=== PATIENT | male | born 1960 | race Hispanic/Latino ===

== ENCOUNTER 2018-06-23 08:21 | Emergency (ER) | payer SELFPAY ==
--- NOTE | 2018-06-23 08:36 | EDPHYS ---
Physician Documentation [facility] Name: Freddy Nichols Age: 57 yrs Sex: Male : 1960 Arrival Date: 06/23/2018 Time: 08:24 Bed 6 Private MD: None, None ED Physician Del Butler HPI: 06/23 08:39 This 57 yrs old Male presents to ER via Unassigned with complaints of snw Headache, High Blood Pressure. 08:39 The patient complains of pain to the forehead. The patient describes the headache as a snw pressure. Onset: The symptoms/episode began/occurred intermittent. Associated signs and symptoms: Pertinent positives: noted high blood pressure on home machine. Severity of symptoms: At its worst the pain was moderate. Headache History: Denies prior headaches. the symptoms are aggravated by high blood pressure. The patient has experienced similar episodes in the past. The patient has not recently seen a physician, and does not have an established primary care provider, supposed to take HTN medications but has not been able to afford. Historical: - Allergies: 08:39 No Known Allergies; iw - Home Meds: 08:39 None [Active]; iw - PMHx: 08:39 None; iw - PSHx: 08:39 None; iw - Immunization history:: Adult Immunizations not up to date. - Social history:: Smoking status: Patient uses tobacco products, one cigarette per day . - Ebola Screening: : Patient negative for fever greater than or equal to 101.5 degrees Fahrenheit, and additional compatible Ebola Virus Disease symptoms Patient denies exposure to infectious person Patient denies travel to an Ebola-affected area in the 21 days before illness onset No symptoms or risks identified at this time. ROS: 08:37 Constitutional: Negative for fever, chills, and weight loss, Eyes: Negative for injury, snw pain, redness, and discharge, ENT: Negative for injury, pain, and discharge, Neck: Negative for injury, pain, and swelling, Cardiovascular: Negative for chest pain, palpitations, and edema, Respiratory: Negative for shortness of breath, cough, wheezing, and pleuritic chest pain, Abdomen/GI: Negative for abdominal pain, nausea, vomiting, diarrhea, and constipation, Back: Negative for injury and pain, : Negative for injury, bleeding, discharge, and swelling, MS/Extremity: Negative for injury and deformity, Skin: Negative for injury, rash, and discoloration. 08:37 Neuro: Positive for headache, lightheadedness intermittently. Exam: 08:37 Constitutional: This is a well developed, well nourished patient who is awake, alert, snw and in no acute distress. Head/Face: Normocephalic, atraumatic. Eyes: Pupils equal round and reactive to light, extra-ocular motions intact. Lids and lashes normal. Conjunctiva and sclera are non-icteric and not injected. Cornea within normal limits. Periorbital areas with no swelling, redness, or edema. ENT: Nares patent. No nasal discharge, no septal abnormalities noted. Tympanic membranes are normal and external auditory canals are clear. Oropharynx with no redness, swelling, or masses, exudates, or evidence of obstruction, uvula midline. Mucous membranes moist. Neck: Trachea midline, no thyromegaly or masses palpated, and no cervical lymphadenopathy. Supple, full range of motion without nuchal rigidity, or vertebral point tenderness. No Meningismus. Chest/axilla: Normal chest wall appearance and motion. Nontender with no deformity. No lesions are appreciated. Cardiovascular: Regular rate and rhythm with a normal S1 and S2. No gallops, murmurs, or rubs. Normal PMI, no JVD. No pulse deficits. Respiratory: Lungs have equal breath sounds bilaterally, clear to auscultation and percussion. No rales, rhonchi or wheezes noted. No increased work of breathing, no retractions or nasal flaring. Abdomen/GI: Soft, non-tender, with normal bowel sounds. No distension or tympany. No guarding or rebound. No evidence of tenderness throughout. Back: No spinal tenderness. No costovertebral tenderness. Full range of motion. Skin: Warm, dry with normal turgor. Normal color with no rashes, no lesions, and no evidence of cellulitis. MS/ Extremity: Pulses equal, no cyanosis. Neurovascular intact. Full, normal range of motion. Neuro: Awake and alert, GCS 15, oriented to person, place, time, and situation. Cranial nerves II-XII grossly intact. Motor strength 5/5 in all extremities. Sensory grossly intact. Cerebellar exam normal. Normal gait. Psych: Awake, alert, with orientation to person, place and time. Behavior, mood, and affect are within normal limits. Vital Signs: 08:39 BP 163 / 105; Pulse 65; Resp 16 S; Temp 97.2(O); Pulse Ox 100% ; Weight 99.79 kg; iw Height 5 ft. 9 in. (175.26 cm); Pain 2/10; 08:39 Body Mass Index 32.49 (99.79 kg, 175.26 cm) iw Estefany Coma Score: 08:38 Eye Response: spontaneous(4). Verbal Response: oriented(5). Motor Response: obeys snw commands(6). Total: 15. MDM: 08:31 Patient medically screened. snw 08:38 Data reviewed: vital signs, nurses notes. Data interpreted: Pulse oximetry: on room air snw is 99 %. Interpretation: normal. Counseling: I had a detailed discussion with the patient and/or guardian regarding: the historical points, exam findings, and any diagnostic results supporting the discharge/admit diagnosis, the presence of at least one elevated blood pressure reading (>120/80) during this emergency department visit, the need for outpatient follow up, to return to the emergency department if symptoms worsen or persist or if there are any questions or concerns that arise at home. Special discussion: I have referred the patient to see his PCP for further evaluation of high blood pressure. Based on the history and exam findings, there is no indication for further emergent testing or inpatient evaluation. I discussed with the patient/guardian the need to see the primary care provider for further evaluation of the symptoms. Administered Medications: 08:38 Drug: cloNIDine 0.1 mg Route: PO; jl7 08:40 Follow up: Response: Medication administered at discharge. hb 08:42 Follow up: Response: Medication administered at discharge. jl7 Disposition: 10:46 Co-signature as Attending Physician, Del Butler MD I agree with the assessment and kdr plan of care. Disposition: 06/23/18 08:35 Discharged to Home. Impression: Essential (primary) hypertension. - Condition is Stable. - Discharge Instructions: Hypertension, Heart Disease Prevention, How to Take Your Blood Pressure, Fuuw-is-Dkgn, DASH Eating Plan, Rehydration, Adult, Managing Your Hypertension. - Prescriptions for Clonidine 0.1 mg Oral Tablet - take 1 tablet by ORAL route every 12 hours; 30 tablet. - Medication Reconciliation Form, Thank You Letter, Antibiotic Education, Prescription Opioid Use form. - Follow up: Private Physician; When: 2 - 3 days; Reason: Recheck today's complaints, Continuance of care, Re-evaluation by your physician. Follow up: Emergency Department; When: As needed; Reason: Worsening of condition. Signatures: Del Butler MD MD [facility] Rosa Olivo, PIT FURNACE MELTER-C PIT FURNACE MELTER-Csnw Martine Starks RN RN iw Maci Sultana RN RN jl7 Kayla Noe RN Corrections: (The following items were deleted from the chart) 08:42 08:35 06/23/2018 08:35 Discharged to Home. Impression: Essential (primary) jl7 hypertension. Condition is Stable. Forms are Medication Reconciliation Form, Thank You Letter, Antibiotic Education, Prescription Opioid Use. Follow up: Private Physician; When: 2 - 3 days; Reason: Recheck today's complaints, Continuance of care, Re-evaluation by your physician. Follow up: Emergency Department; When: As needed; Reason: Worsening of condition. snw
--- NOTE | 2018-06-23 08:43 | ER ---
Nurse's Notes [facility] Name: Freddy Nichols Age: 57 yrs Sex: Male : 1960 Arrival Date: 06/23/2018 Time: 08:24 Bed 6 Private MD: None, None Diagnosis: Essential (primary) hypertension Presentation: 06/23 08:38 Presenting complaint: Patient states: has had high BP readings at home, has not had BP iw medication due to financial situation, also has headache and feels dizzy at times. Transition of care: patient was not received from another setting of care. Onset of symptoms was 2017. Risk Assessment: Do you want to hurt yourself or someone else? Patient reports no desire to harm self or others. Initial Sepsis Screen: Does the patient meet any 2 criteria? No. Patient's initial sepsis screen is negative. Does the patient have a suspected source of infection? No. Patient's initial sepsis screen is negative. Care prior to arrival: None. 08:38 Method Of Arrival: Ambulatory iw 08:38 Acuity: CHASE 4 iw Historical: - Allergies: 08:39 No Known Allergies; iw - Home Meds: 08:39 None [Active]; iw - PMHx: 08:39 None; iw - PSHx: 08:39 None; iw - Immunization history:: Adult Immunizations not up to date. - Social history:: Smoking status: Patient uses tobacco products, one cigarette per day . - Ebola Screening: : Patient negative for fever greater than or equal to 101.5 degrees Fahrenheit, and additional compatible Ebola Virus Disease symptoms Patient denies exposure to infectious person Patient denies travel to an Ebola-affected area in the 21 days before illness onset No symptoms or risks identified at this time. Screenin:39 Abuse screen: Denies threats or abuse. Denies injuries from another. Nutritional jl7 screening: No deficits noted. Tuberculosis screening: No symptoms or risk factors identified. Fall Risk None identified. Assessment: 08:39 General: Appears in no apparent distress. uncomfortable, Behavior is calm, cooperative, jl7 appropriate for age. Pain: Denies pain. Neuro: Level of Consciousness is awake, alert, obeys commands, Oriented to person, place, time, situation. Cardiovascular: Heart tones S1 S2 present Patient's skin is warm and dry. Respiratory: Airway is patent Respiratory effort is even, unlabored, Respiratory pattern is regular, symmetrical. GI: No signs and/or symptoms were reported involving the gastrointestinal system. : No signs and/or symptoms were reported regarding the genitourinary system. EENT: No signs and/or symptoms were reported regarding the EENT system. Derm: Skin is pink, warm \T\ dry. Musculoskeletal: No signs and/or symptoms reported regarding the musculoskeletal system. Vital Signs: 08:39 BP 163 / 105; Pulse 65; Resp 16 S; Temp 97.2(O); Pulse Ox 100% ; Weight 99.79 kg; iw Height 5 ft. 9 in. (175.26 cm); Pain 2/10; 08:39 Body Mass Index 32.49 (99.79 kg, 175.26 cm) iw Elwood Coma Score: 08:38 Eye Response: spontaneous(4). Verbal Response: oriented(5). Motor Response: obeys snw commands(6). Total: 15. ED Course: 08:24 Patient arrived in ED. mr 08:24 None, None is Private Physician. mr 08:30 Rosa Olivo FNP-C [facility]. snw 08:31 Del Butler MD is Attending Physician. snw 08:39 Triage completed. iw 08:39 Maci Sultana, RN is Primary Nurse. jl7 08:39 Arm band placed on. iw 08:39 Patient has correct armband on for positive identification. Bed in low position. Call jl7 light in reach. Side rails up X 1. 08:39 No provider procedures requiring assistance completed. Patient did not have IV access jl7 during this emergency room visit. Administered Medications: 08:38 Drug: cloNIDine 0.1 mg Route: PO; jl7 08:40 Follow up: Response: Medication administered at discharge. hb 08:42 Follow up: Response: Medication administered at discharge. jl7 Outcome: 08:35 Discharge ordered by . snw 08:39 Discharged to home ambulatory, with family. jl7 08:39 Condition: stable 08:39 Discharge instructions given to patient, family, Instructed on discharge instructions, follow up and referral plans. medication usage, Demonstrated understanding of instructions, follow-up care, medications, Prescriptions given X 1. 08:42 Patient left the ED. jl7 Signatures: Rosa Olivo FNP-C MOLDING SUPERVISOR-Csnw DuqueMuriel Irene, RN RN Kayla Jamil, RN RN Maci Dean, RN RN jl7
[2018-06-23] MEDS ORDERED: cloNIDine HCl 0.1 MG TAB ONE (08:44)
== END 2018-06-23 08:42 | disposition home or self-care (01) ==
LOC: ER 08:21
DX: I10 Essential (primary) hypertension (principal); F17.210 Nicotine dependence, cigarettes, uncomplicated
CPT/HCPCS: 99283

== ENCOUNTER 2019-05-09 12:27 | Emergency (ER) | payer SELFPAY ==
--- NOTE | 2019-05-09 13:59 | EKG ---
Test Date: 2019-05-09 Test Time: 13:02:04 Supervisor Word Processing: ANA MEASUREMENT RESULTS: Intervals: Rate: 80 MA: 162 QRSD: 96 QT: 382 QTc: 440 [place]: P: 31 MA: 162 QRS: 14 T: 2 INTERPRETIVE STATEMENTS: Normal sinus rhythm Normal ECG Compared to ECG 01/14/2000 18:11:00 No significant changes Electronically Signed On 05-09-19 13:58:50 CDT by Dirk Holcomb
[2019-05-09 14:04] LABS: Absolute Lymphocytes (CBC) 1.1 K/uL (0.7-4.9); Basophils % 0.6 % (0-1.3); Hematocrit 44.1 % (39.6-49.0); Lymphocytes % 14.4 % (15.3-44.8); MPV 11.2 fL (7.6-11.3); RBC Red Blood Cell Count 5.38 M/uL (4.33-5.43)
[2019-05-09 14:24] LABS: ALT/SGPT 61 U/L (12-78); AST/SGOT 37 U/L (15-37); Albumin 3.6 g/dL (3.4-5.0); Alkaline Phosphatase 114 U/L (45-117); BUN Blood Urea Nitrogen 27 mg/dL (7-18); Bicarbonate 28 mmol/L (21-32); Bilirubin Direct 0.2 mg/dL (0-0.2); Bilirubin Total 0.5 mg/dL (0.2-1.0); Glucose Level 94 mg/dL (74-106); Magnesium 2.1 mg/dL (1.8-2.4); NT PRO-BNP 12 pg/mL (<125); Potassium 3.7 mmol/L (3.5-5.1); Protein, Total 7.2 g/dL (6.4-8.2); Sodium Level 140 mmol/L (136-145); Troponin (Emerg Dept Use Only) < 0.02 ng/mL (0.0-0.045)
--- NOTE | 2019-05-09 14:35 | RAD REPORT ---
EXAM DESCRIPTION: Max Single View05/09/2019 2:17 pm CLINICAL HISTORY: Chest pain COMPARISON: none FINDINGS: The lungs appear clear of acute infiltrate. The heart is normal size IMPRESSION: No acute abnormalities displayed
[2019-05-09 15:06] LABS: Protime INR 1.07
--- NOTE | 2019-05-09 16:11 | ER ---
Nurse's Notes [facility] Name: Freddy Nichols Age: 58 yrs Sex: Male : 1960 Arrival Date: 05/09/2019 Time: 12:29 Bed 15 Private MD: Diagnosis: Chest pain, unspecified;Hypertensive heart disease Presentation: 05/09 12:35 Presenting complaint: Anxiety, left sided chest pain, dizziness, and home BP 208/91. hb Transition of care: patient was not received from another setting of care. Onset of symptoms was May 09, 2019. Risk Assessment: Do you want to hurt yourself or someone else? Patient reports no desire to harm self or others. Care prior to arrival: None. 12:35 Method Of Arrival: Ambulatory hb 12:35 Acuity: CHASE 3 hb 14:05 Initial Sepsis Screen: Does the patient meet any 2 criteria? No. Patient's initial aj1 sepsis screen is negative. Does the patient have a suspected source of infection? No. Patient's initial sepsis screen is negative. Historical: - Allergies: 12:38 No Known Allergies; hb - Home Meds: 12:38 omeprazole 40 mg Oral cpDR 1 cap once daily [Active]; losartan-hydrochlorothiazide hb 50-12.5 mg oral tab 1 tab once daily [Active]; unknown diuretic [Active]; Melatonin Oral [Active]; unknown cholesterol med [Active]; - PMHx: 12:38 Hyperlipidemia; Hypertension; hb - PSHx: 12:38 None; hb - Immunization history:: Adult Immunizations up to date. - Social history:: Smoking status: Patient uses tobacco products, denies chronic smoking, but will smoke occasionally. - Ebola Screening: : No symptoms or risks identified at this time. Screenin:14 Abuse screen: Denies threats or abuse. Denies injuries from another. Nutritional aj1 screening: No deficits noted. Tuberculosis screening: No symptoms or risk factors identified. 14:05 Fall Risk None identified. aj1 Assessment: 13:14 General: Appears in no apparent distress. comfortable, Behavior is calm, cooperative, aj1 appropriate for age, anxious. Pain: Denies pain. Neuro: Level of Consciousness is awake, alert, obeys commands, Oriented to person, place, time, situation. Cardiovascular: Reports lightheadedness, Denies chest pain, Patient's skin is warm and dry. Rhythm is sinus rhythm. Respiratory: Airway is patent Respiratory effort is even, unlabored, Respiratory pattern is regular, symmetrical, Breath sounds are clear bilaterally. GI: No signs and/or symptoms were reported involving the gastrointestinal system. : No signs and/or symptoms were reported regarding the genitourinary system. EENT: No signs and/or symptoms were reported regarding the EENT system. Derm: No signs and/or symptoms reported regarding the dermatologic system. Musculoskeletal: No signs and/or symptoms reported regarding the musculoskeletal system. 14:04 Reassessment: Patient appears in no apparent distress at this time. No changes from aj1 previously documented assessment. Patient and/or family updated on plan of care and expected duration. Pain level reassessed. Patient is alert, oriented x 3, equal unlabored respirations, skin warm/dry/pink. 15:05 Reassessment: Patient appears in no apparent distress at this time. No changes from aj1 previously documented assessment. Patient and/or family updated on plan of care and expected duration. Pain level reassessed. Patient is alert, oriented x 3, equal unlabored respirations, skin warm/dry/pink. 16:29 Reassessment: Patient appears in no apparent distress at this time. No changes from aj1 previously documented assessment. Patient and/or family updated on plan of care and expected duration. Pain level reassessed. Patient is alert, oriented x 3, equal unlabored respirations, skin warm/dry/pink. Vital Signs: 12:36 BP 135 / 95; Pulse 89; Resp 16; Temp 98.1; Pulse Ox 100% on R/A; Weight 113.4 kg; hb Height 5 ft. 8 in. (172.72 cm); Pain 6/10; 14:04 BP 118 / 89; Pulse 80; Resp 18; Pulse Ox 97% on R/A; aj1 15:05 BP 117 / 83; Pulse 80; Resp 18; Pulse Ox 98% ; aj1 16:05 BP 121 / 89; Pulse 79; Resp 18; Pulse Ox 97% on R/A; aj1 12:36 Body Mass Index 38.01 (113.40 kg, 172.72 cm) hb ED Course: 12:29 Patient arrived in ED. as 12:36 Triage completed. hb 12:36 Arm band placed on. hb 12:44 Kiara Puente, RN is Primary Nurse. aj1 13:00 Del Butler MD is Attending Physician. kdr 13:07 EKG done, by consulting technical manager. reviewed by Del Butler MD. at1 13:55 Inserted saline lock: 20 gauge in right antecubital area, using aseptic technique. aj1 Blood collected. 14:05 Patient has correct armband on for positive identification. aj1 14:05 No provider procedures requiring assistance completed. aj1 14:17 XRAY Chest (1 view) In Process Unspecified. EDMS 16:30 IV discontinued, intact, bleeding controlled, No redness/swelling at site. Pressure aj1 dressing applied. Administered Medications: No medications were administered Outcome: 16:11 Discharge ordered by . kdr 16:31 Discharged to home ambulatory. aj1 16:31 Condition: good 16:31 Discharge instructions given to patient, Instructed on discharge instructions, follow up and referral plans. Demonstrated understanding of instructions, follow-up care. 16:31 Patient left the ED. aj1 Signatures: Dispatcher [employer] EDKS Kiara Puente, RN RN aj1 Del Butler MD MD kdr Martinez, Amelia as Emelyn Modi, car lubricator EKG Tat1 Kayla Noe, RN RN hb
--- NOTE | 2019-05-09 16:12 | EDPHYS ---
Physician Documentation [facility] Name: Freddy Nichols Age: 58 yrs Sex: Male : 1960 Arrival Date: 05/09/2019 Time: 12:29 Bed 15 Private MD: ED Physician Del Butler HPI: 05/09 17:14 This 58 yrs old Male presents to ER via Ambulatory with complaints of High kdr Blood Pressure, Dizziness. 17:14 The patient is a very vague historian but c/o left sided chest "itching" chest pain? kdr Hypertension and dizziness. 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 Onset: The symptoms/episode began/occurred at an unknown time. Severity of symptoms: At their worst the symptoms were mild just prior to arrival, in the emergency department the symptoms are unchanged. The patient has experienced similar episodes in the past, a few times, The patient is unclear about how long he has had the above noted s/s. The patient has not recently seen a physician. Historical: - Allergies: 12:38 No Known Allergies; hb - Home Meds: 12:38 omeprazole 40 mg Oral cpDR 1 cap once daily [Active]; losartan-hydrochlorothiazide hb 50-12.5 mg oral tab 1 tab once daily [Active]; unknown diuretic [Active]; Melatonin Oral [Active]; unknown cholesterol med [Active]; - PMHx: 12:38 Hyperlipidemia; Hypertension; hb - PSHx: 12:38 None; hb - Immunization history:: Adult Immunizations up to date. - Social history:: Smoking status: Patient uses tobacco products, denies chronic smoking, but will smoke occasionally. - Ebola Screening: : No symptoms or risks identified at this time. ROS: 17:14 Constitutional: Negative for fever, chills, and weight loss, Eyes: Negative for injury, kdr pain, redness, and discharge, Neck: Negative for injury, pain, and swelling, Abdomen/GI: Negative for abdominal pain, nausea, vomiting, diarrhea, and constipation, Back: Negative for injury and pain, : Negative for injury, bleeding, discharge, and swelling, MS/Extremity: Negative for injury and deformity, Skin: Negative for injury, rash, and discoloration, Neuro: Negative for headache, weakness, numbness, tingling, and seizure activity. Psych: Negative for depression, anxiety, suicide ideation, homicidal ideation, and hallucinations, Allergy/Immunology: Negative for hives, rash, and allergies, Endocrine: Negative for neck swelling, polydipsia, polyuria, polyphagia, and marked weight changes, Hematologic/Lymphatic: Negative for swollen nodes, abnormal bleeding, and unusual bruising. 17:14 Cardiovascular: Positive for chest pain, Negative for edema, orthopnea, palpitations, paroxysmal nocturnal dyspnea. 17:14 Respiratory: Positive for 17:14 Neuro: Positive for dizziness, Negative for altered mental status, gait disturbance, headache, hearing loss, loss of consciousness, numbness, seizure activity, speech changes, syncope, near syncope, tingling, weakness. Exam: 17:14 Constitutional: This is a well developed, well nourished patient who is awake, alert, kdr and in no acute distress. Head/Face: Normocephalic, atraumatic. Eyes: Pupils equal round and reactive to light, extra-ocular motions intact. Lids and lashes normal. Conjunctiva and sclera are non-icteric and not injected. Cornea within normal limits. Periorbital areas with no swelling, redness, or edema. Neck: Trachea midline, no thyromegaly or masses palpated, and no cervical lymphadenopathy. Supple, full range of motion without nuchal rigidity, or vertebral point tenderness. No Meningismus. Chest/axilla: Normal chest wall appearance and motion. Nontender with no deformity. No lesions are appreciated. Cardiovascular: Regular rate and rhythm with a normal S1 and S2. No gallops, murmurs, or rubs. Normal PMI, no JVD. No pulse deficits. Respiratory: Lungs have equal breath sounds bilaterally, clear to auscultation and percussion. No rales, rhonchi or wheezes noted. No increased work of breathing, no retractions or nasal flaring. Abdomen/GI: Soft, non-tender, with normal bowel sounds. No distension or tympany. No guarding or rebound. No evidence of tenderness throughout. Back: No spinal tenderness. No costovertebral tenderness. Full range of motion. Skin: Warm, dry with normal turgor. Normal color with no rashes, no lesions, and no evidence of cellulitis. MS/ Extremity: Pulses equal, no cyanosis. Neurovascular intact. Full, normal range of motion. Neuro: Awake and alert, GCS 15, oriented to person, place, time, and situation. Cranial nerves II-XII grossly intact. Motor strength 5/5 in all extremities. Sensory grossly intact. Cerebellar exam normal. Normal gait. Psych: Awake, alert, with orientation to person, place and time. Behavior, mood, and affect are within normal limits. Vital Signs: 12:36 BP 135 / 95; Pulse 89; Resp 16; Temp 98.1; Pulse Ox 100% on R/A; Weight 113.4 kg; hb Height 5 ft. 8 in. (172.72 cm); Pain 6/10; 14:04 BP 118 / 89; Pulse 80; Resp 18; Pulse Ox 97% on R/A; aj1 15:05 BP 117 / 83; Pulse 80; Resp 18; Pulse Ox 98% ; aj1 16:05 BP 121 / 89; Pulse 79; Resp 18; Pulse Ox 97% on R/A; aj1 12:36 Body Mass Index 38.01 (113.40 kg, 172.72 cm) hb MDM: 16:11 Patient medically screened. kdr 17:14 Data reviewed: vital signs, nurses notes, lab test result(s), EKG, radiologic studies. kdr Counseling: I had a detailed discussion with the patient and/or guardian regarding: the historical points, exam findings, and any diagnostic results supporting the discharge/admit diagnosis, lab results, radiology results, the need for outpatient follow up. 05/09 13:34 Order name: Basic Metabolic Panel; Complete Time: 14:28 kdr 05/09 13:34 Order name: CBC with Diff kdr 05/09 13:34 Order name: LFT's; Complete Time: 14:28 kdr 05/09 13:34 Order name: Magnesium; Complete Time: 14:28 kdr 05/09 13:34 Order name: NT PRO-BNP; Complete Time: 14:28 kdr 05/09 13:34 Order name: PT-INR; Complete Time: 15:23 kdr 05/09 13:34 Order name: Troponin (emerg Dept Use Only); Complete Time: 14:28 kdr 05/09 13:34 Order name: XRAY Chest (1 view); Complete Time: 15:06 kdr 05/09 13:34 Order name: EKG; Complete Time: 13:36 kdr 05/09 13:34 Order name: Cardiac monitoring; Complete Time: 13:37 kdr 05/09 13:34 Order name: EKG - Nurse/Tech; Complete Time: 13:37 kdr 05/09 13:34 Order name: IV Saline Lock; Complete Time: 14:02 kdr 05/09 13:34 Order name: Labs collected and sent; Complete Time: 14:02 kdr 05/09 14:31 Order name: Troponin (emerg Dept Use Only); Complete Time: 16:08 kdr 05/09 13:34 Order name: O2 Per Protocol; Complete Time: 13:37 kdr 05/09 13:34 Order name: O2 Sat Monitoring; Complete Time: 13:37 kdr Administered Medications: No medications were administered Disposition: 05/09/19 16:11 Discharged to Home. Impression: Chest pain, unspecified, Hypertensive heart disease. - Condition is Stable. - Discharge Instructions: Nonspecific Chest Pain, [id number], Hypertension, [id number]. - Medication Reconciliation Form, Thank You Letter form. - Follow up: Private Physician; When: 2 - 3 days; Reason: If symptoms return, Further diagnostic work-up, Recheck today's complaints, Continuance of care, Re-evaluation by your physician. - Problem is an ongoing problem. - Symptoms are resolved. Signatures: Dispatcher [employer] EDKiara Luz RN RN aj1 Del Butler MD MD kdr Kayla Noe RN RN Corrections: (The following items were deleted from the chart) 16:31 16:11 05/09/2019 16:11 Discharged to Home. Impression: Chest pain, unspecified; aj1 Hypertensive heart disease. Condition is Stable. Forms are Medication Reconciliation Form, Thank You Letter, Antibiotic Education, Prescription Opioid Use. Follow up: Private Physician; When: 2 - 3 days; Reason: If symptoms return, Further diagnostic work-up, Recheck today's complaints, Continuance of care, Re-evaluation by your physician. Problem is an ongoing problem. Symptoms are resolved. kdr
[2019-05-09 17:05] VITALS: TEMP 98.1
[2019-05-09 17:08] VITALS: BP 121/89; O2SAT 97
[2019-05-09 18:55] LABS: Blood Morphology Comment NOT SEEN (NOT SEEN); Platelet Estimate DECR; Platelets, Giant FEW; Urine White Blood Cell Casts OK
== END 2019-05-09 16:31 | disposition home or self-care (01) ==
LOC: ER 12:27
DX: I11.9 Hypertensive heart disease without heart failure (principal)
CPT/HCPCS: 36415; 71045; 80048; 80076; 83735; 83880; 84484; 85025; 85610; 93005; 99284

== ENCOUNTER 2021-05-28 17:34 | Observation (INO) | payer SELFPAY ==
--- NOTE | 2021-05-28 18:14 | RAD REPORT ---
EXAM DESCRIPTION: CT - Head Brain Wo Cont - 05/28/2021 6:03 pm CLINICAL HISTORY: headache, dizziness COMPARISON: <Comparisons> TECHNIQUE: Axial 5 mm thick images of the head were obtained without IV contrast. All CT scans are performed using dose optimization technique as appropriate and may include automated exposure control or mA/KV adjustment according to patient size. FINDINGS: No intracranial hemorrhage, mass, edema or shift of mid-line structures. No acute infarcti on changes seen. No cortical edema or sulcal effacement. No significant atrophy changes are present. Minimal diminished attenuation in the cerebral white matter, more notable in the left frontal lobe, p robably represents minimal chronic ischemic change. This is not felt be related to the current clinic al presentation. Mastoid air cells and visualized portions of the paranasal sinuses are clear. No acute bony findings. IMPRESSION: Negative non-contrast CT head examination for acute finding. .
[2021-05-28] MEDS ORDERED: NA CHLORIDE 0.9% 500 ML ONE (19:45)
[2021-05-28] MEDS ORDERED: NA CHLORIDE 0.9% 1,000 ML ONE (19:45)
[2021-05-28] MEDS ORDERED: FOLIC ACID 5 MG/ML VIAL ONE (19:47)
--- NOTE | 2021-05-28 20:10 | RAD REPORT ---
EXAM DESCRIPTION: RAD - Chest Single View - 05/28/2021 7:57 pm CLINICAL HISTORY: COUGH COMPARISON: April 2019 TECHNIQUE: AP portable chest image was obtained 05/28/2021 7:57 pm . FINDINGS: Lung volumes are very low limiting the examination. Large body habitus further limits the study. No dense mass or consolidation. Interstitial pattern is not clearly different comparison. Hear t and vasculature are normal. No measurable pleural effusion and no pneumothorax. No acute bony abnor mality seen. No acute aortic findings suspected. IMPRESSION: Significantly limited examination with no acute cardiopulmonary process. No significant change from comparison study.
[2021-05-28 20:28] LABS: Absolute Lymphocytes (CBC) 1.1 K/uL (0.7-4.9); Basophils % 0.6 % (0-1.3); Hematocrit 44.8 % (39.6-49.0); Lymphocytes % 19.7 % (15.3-44.8); MPV 11.3 fL (7.6-11.3); RBC Red Blood Cell Count 5.25 M/uL (4.33-5.43)
[2021-05-28 20:31] LABS: Protime INR 1.1
--- NOTE | 2021-05-28 20:35 | ER ---
Nurse's Notes [facility] Name: Freddy Nichols Age: 60 yrs Sex: Male : 1960 Arrival Date: 05/28/2021 Time: 17:35 Bed 30 Private MD: Diagnosis: Headache;Ataxia, unspecified;Essential (primary) hypertension Presentation: 05/28 17:39 Chief complaint: Patient states: I have been confused, dizzy, weak and feeling like I ld1 was going to pass out since Tuesday. Today I went to [place] and I started feeling really scared like something was going to happen to me. I have had a severe headache since this morning at 0530. C/O pain on the left side of my face. Coronavirus screen: At this time, the client does not indicate any symptoms associated with coronavirus-19. Ebola Screen: No symptoms or risks identified at this time. Initial Sepsis Screen: Does the patient meet any 2 criteria? No. Patient's initial sepsis screen is negative. Does the patient have a suspected source of infection? No. Patient's initial sepsis screen is negative. Risk Assessment: Do you want to hurt yourself or someone else? Patient reports no desire to harm self or others. Onset of symptoms was May 28, 2021. 17:39 Method Of Arrival: Ambulatory ld1 17:39 Acuity: CHASE 3 ld1 Triage Assessment: 17:42 Headache History: Denies prior headaches. General: Appears in no apparent distress. ld1 comfortable, Behavior is cooperative, agitated, anxious. Pain: Complains of pain in left ear Pain does not radiate. Pain currently is 6 out of 10 on a pain scale. Quality of pain is described as throbbing, Pain began since 0530 this morning Is continuous, Also complains of no other associated symptoms. Neuro: Level of Consciousness is awake, alert, obeys commands, Oriented to person, place, time, situation, Appropriate for age. Cardiovascular: Capillary refill < 3 seconds Patient's skin is warm and dry. Respiratory: Airway is patent Respiratory effort is even, unlabored, Respiratory pattern is regular, symmetrical. GI: Abdomen is round non-distended. Historical: - Allergies: 17:42 No Known Allergies; ld1 - Home Meds: 17:42 losartan-hydrochlorothiazide 50-12.5 mg Oral tab 1 tab once daily [Active]; Melatonin ld1 Oral [Active]; omeprazole 40 mg Oral cpDR 1 cap once daily [Active]; Unknown cholesterol med [Active]; Unknown diuretic [Active]; - PMHx: 17:42 Hyperlipidemia; Hypertension; ld1 - PSHx: 17:42 None; ld1 - Immunization history:: Adult Immunizations up to date, Client reports having NOT received the Covid vaccine. - Social history:: Smoking status: Patient reports the use of cigarette tobacco products, smokes one-half pack cigarettes per day, Patient/guardian denies using alcohol. Screenin:29 Abuse screen: Denies threats or abuse. Denies injuries from another. Nutritional tw5 screening: No deficits noted. Tuberculosis screening: No symptoms or risk factors identified. Fall Risk No fall in past 12 months (0 pts). Assessment: 19:29 General: Reports "I have just been feeling weak since Tuesday. I just feel like I am tw5 going to fall to the left. Pain: Denies pain. Pain: Pain. Neuro: Level of Consciousness is awake, alert, obeys commands, Oriented to person, place, time, situation, Senior Quality Engineer are equal bilaterally Moves all extremities. Full function Speech is normal, Facial symmetry appears normal, Pupils are PERRLA, Intact. Cardiovascular: Heart tones S1 S2 present Capillary refill < 3 seconds is brisk in bilateral fingers. Respiratory: Airway is patent Trachea midline Respiratory effort is even, unlabored, Respiratory pattern is regular. Musculoskeletal: Circulation, motion, and sensation intact. Range of motion: intact in all extremities. 20:02 Reassessment: Patient appears in no apparent distress at this time. No changes from tw5 previously documented assessment. Patient and/or family updated on plan of care and expected duration. Pain level reassessed. 20:40 General: Appears in no apparent distress. comfortable, Behavior is calm, cooperative, tw5 anxious. 20:43 : Urine is clear. tw5 21:40 Reassessment: Patient states feeling better. Patient states symptoms have improved. tw5 Vital Signs: 17:39 BP 147 / 108; Pulse 103; Resp 20; Temp 98.6(TE); Pulse Ox 96% on R/A; Weight 117.93 kg; ld1 Height 5 ft. 8 in. (172.72 cm); Pain 6/10; 19:18 BP 140 / 96; Pulse 84; Resp 19; Temp 98.1; Pulse Ox 96% ; kj1 19:29 BP 133 / 92; Pulse 83; Resp 24; Pulse Ox 96% on R/A; tw5 20:02 BP 146 / 101; Pulse 83; Resp 22; Pulse Ox 98% on R/A; Pain 0/10; tw5 20:40 BP 139 / 92; Pulse 80; Resp 18; Pulse Ox 93% on R/A; tw5 21:40 BP 144 / 88; Pulse 81; Resp 18; Pulse Ox 97% on R/A; tw5 17:39 Body Mass Index 39.53 (117.93 kg, 172.72 cm) ld1 [place] Coma Score: 19:48 Eye Response: spontaneous(4). Verbal Response: oriented(5). Motor Response: obeys reagan commands(6). Total: 15. ED Course: 17:35 Patient arrived in ED. am2 17:42 Triage completed. ld1 17:42 Arm band placed on left wrist. ld1 18:02 CT Head Brain wo Cont In Process Unspecified. EDMS 19:21 Kojo Rivera MD is Attending Physician. [facility] 19:29 Ni Cordoba is Primary Nurse. tw5 19:29 Patient has correct armband on for positive identification. Placed in gown. Bed in low tw5 position. Call light in reach. Side rails up X 1. Adult w/ patient. gambling monitor on. Pulse ox on. NIBP on. Door closed. Noise minimized. Lights dimmed. Moved to private room. Warm blanket given. Verbal reassurance given. 19:29 EKG done, by brewery technician. reviewed by Kojo Rivera MD. tw5 19:57 XRAY Chest (1 view) In Process Unspecified. EDMS 20:02 No apparent distress. Awaiting lab results. tw5 20:02 Initial lab(s) drawn, by me, sent to lab. COVID swab sent to lab. Inserted saline lock: tw5 20 gauge in right antecubital area, using aseptic technique. Blood collected. 20:03 Basic Metabolic Panel Sent. tw5 20:03 CBC with Diff Sent. tw5 20:03 LFT's Sent. tw5 20:03 Magnesium Sent. tw5 20:03 NT PRO-BNP Sent. tw5 20:03 PT-INR Sent. tw5 20:03 Troponin (emerg Dept Use Only) Sent. tw5 20:10 SARS-COV-2 RT PCR (Document "Date of Onset" if Symptomatic) Sent. tw 20:33 Gee Bhakta MD is Hospitalizing Provider. [facility] 20:42 Awaiting bed assignment. tw 20:43 Urine collected:. tw 21:40 Assisted with urinal. tw5 Administered Medications: 20:05 Drug: NS 0.9% 500 ml Route: IV; Rate: bolus; Site: right antecubital; tw 21:41 Follow up: Response: No adverse reaction; IV Status: Completed infusion tw 20:10 Drug: NS 0.9% 1000 ml Route: IV; Rate: 125 ml/hr; Site: right antecubital; tw 21:41 Follow up: Response: No adverse reaction; IV Status: Infusion continued upon admission tw 22:21 Follow up: IV Status: Infusion continued upon admission tw 20:10 Drug: foLIC Acid 1 mg Route: IVPB; Site: right antecubital; tw 21:41 Follow up: Response: No adverse reaction; IV Status: Completed infusion tw 20:43 Drug: Aspirin Chewable Tablet 324 mg Route: PO; 21:41 Follow up: Response: No adverse reaction Outcome: 20:34 Decision to Hospitalize by Provider. [facility] 21:59 Admitted to Med/surg Report called to Spoke to Radha, she stated [facility] should be [facility] receiving the patient. Currently paging nurse to receive report. 21:59 Admitted to Med/surg Report called to Radha stated that [facility] is busy with another tw5 patient and will have to call back to give report. 22:11 Admitted to Med/surg Report called to [facility] on Med/surg tw5 22:21 Patient left the ED. 5 Signatures: Dispatcher [employer] EDMS Kojo Rivera MD MD cha Moreno, Amanda am2 Jackson, Kandis kjPrincess Jimenes RN RN [email or web address] Ni Cordoba tw5
--- NOTE | 2021-05-28 20:35 | EDPHYS ---
Physician Documentation [facility] Name: Freddy Nichols Age: 60 yrs Sex: Male : 1960 Arrival Date: 05/28/2021 Time: 17:35 Bed 30 Private MD: JAJA Physician Kojo Rivera HPI: 05/28 19:42 This 60 yrs old Male presents to ER via Ambulatory with complaints of reagan Headache, facial pain, Dizziness. 19:42 The patient complains of pain to the top of head and forehead. The patient describes reagan the headache as aching. Onset: The symptoms/episode began/occurred 3 day(s) ago. Associated signs and symptoms: Pertinent positives: dizziness. Historical: - Allergies: 17:42 No Known Allergies; ld1 - Home Meds: 17:42 losartan-hydrochlorothiazide 50-12.5 mg Oral tab 1 tab once daily [Active]; Melatonin ld1 Oral [Active]; omeprazole 40 mg Oral cpDR 1 cap once daily [Active]; Unknown cholesterol med [Active]; Unknown diuretic [Active]; - PMHx: 17:42 Hyperlipidemia; Hypertension; ld1 - PSHx: 17:42 None; ld1 - Immunization history:: Adult Immunizations up to date, Client reports having NOT received the Covid vaccine. - Social history:: Smoking status: Patient reports the use of cigarette tobacco products, smokes one-half pack cigarettes per day, Patient/guardian denies using alcohol. ROS: 19:45 Constitutional: Negative for fever, chills, and weight loss, Eyes: Negative for injury, reagan pain, redness, and discharge, ENT: Negative for injury, pain, and discharge, Neck: Negative for injury, pain, and swelling, Cardiovascular: Negative for chest pain, palpitations, and edema, Respiratory: Negative for shortness of breath, cough, wheezing, and pleuritic chest pain, Abdomen/GI: Negative for abdominal pain, nausea, vomiting, diarrhea, and constipation, Back: Negative for injury and pain, : Negative for injury, bleeding, discharge, and swelling, MS/Extremity: Negative for injury and deformity, Skin: Negative for injury, rash, and discoloration, Psych: Negative for depression, anxiety, suicide ideation, homicidal ideation, and hallucinations, Allergy/Immunology: Negative for hives, rash, and allergies, Endocrine: Negative for neck swelling, polydipsia, polyuria, polyphagia, and marked weight changes, Hematologic/Lymphatic: Negative for swollen nodes, abnormal bleeding, and unusual bruising. 19:45 Neuro: Positive for dizziness, headache, near syncope, weakness. Exam: 19:45 Constitutional: This is a well developed, well nourished patient who is awake, alert, reagan and in no acute distress. Head/Face: Normocephalic, atraumatic. Eyes: Pupils equal round and reactive to light, extra-ocular motions intact. Lids and lashes normal. Conjunctiva and sclera are non-icteric and not injected. Cornea within normal limits. Periorbital areas with no swelling, redness, or edema. ENT: Nares patent. No nasal discharge, no septal abnormalities noted. Tympanic membranes are normal and external auditory canals are clear. Oropharynx with no redness, swelling, or masses, exudates, or evidence of obstruction, uvula midline. Mucous membranes moist. Neck: Trachea midline, no thyromegaly or masses palpated, and no cervical lymphadenopathy. Supple, full range of motion without nuchal rigidity, or vertebral point tenderness. No Meningismus. Chest/axilla: Normal chest wall appearance and motion. Nontender with no deformity. No lesions are appreciated. Cardiovascular: Regular rate and rhythm with a normal S1 and S2. No gallops, murmurs, or rubs. Normal PMI, no JVD. No pulse deficits. Respiratory: Lungs have equal breath sounds bilaterally, clear to auscultation and percussion. No rales, rhonchi or wheezes noted. No increased work of breathing, no retractions or nasal flaring. Abdomen/GI: Soft, non-tender, with normal bowel sounds. No distension or tympany. No guarding or rebound. No evidence of tenderness throughout. Back: No spinal tenderness. No costovertebral tenderness. Full range of motion. Male : Normal genitalia with no discharge or lesions. Skin: Warm, dry with normal turgor. Normal color with no rashes, no lesions, and no evidence of cellulitis. MS/ Extremity: Pulses equal, no cyanosis. Neurovascular intact. Full, normal range of motion. Neuro: Awake and alert, GCS 15, oriented to person, place, time, and situation. Cranial nerves II-XII grossly intact. Motor strength 5/5 in all extremities. Sensory grossly intact. Cerebellar exam normal. Normal gait. Psych: Awake, alert, with orientation to person, place and time. Behavior, mood, and affect are within normal limits. 19:45 ECG was reviewed by the Attending Physician. Vital Signs: 17:39 BP 147 / 108; Pulse 103; Resp 20; Temp 98.6(TE); Pulse Ox 96% on R/A; Weight 117.93 kg; ld1 Height 5 ft. 8 in. (172.72 cm); Pain 6/10; 19:18 BP 140 / 96; Pulse 84; Resp 19; Temp 98.1; Pulse Ox 96% ; kj1 19:29 BP 133 / 92; Pulse 83; Resp 24; Pulse Ox 96% on R/A; tw5 20:02 BP 146 / 101; Pulse 83; Resp 22; Pulse Ox 98% on R/A; Pain 0/10; tw5 20:40 BP 139 / 92; Pulse 80; Resp 18; Pulse Ox 93% on R/A; tw5 21:40 BP 144 / 88; Pulse 81; Resp 18; Pulse Ox 97% on R/A; tw5 17:39 Body Mass Index 39.53 (117.93 kg, 172.72 cm) ld1 Kendall Coma Score: 19:48 Eye Response: spontaneous(4). Verbal Response: oriented(5). Motor Response: obeys reagan commands(6). Total: 15. MDM: 19:21 Patient medically screened. reagan 19:48 Differential diagnosis: cluster headache, cerebral vascular accident, hypertensive reagan headache, hypoglycemia, hyponatremia, neoplasm, sinusitis, tension headache, vasomotor headache. Data reviewed: vital signs, nurses notes, lab test result(s), EKG, radiologic studies, CT scan, plain films. 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 on room air. Test interpretation: by ED physician or midlevel provider: ECG, plain radiologic studies. Counseling: I had a detailed discussion with the patient and/or guardian regarding: the historical points, exam findings, and any diagnostic results supporting the discharge/admit diagnosis, lab results, radiology results, the need for further work-up and treatment in the hospital. 05/28 19:42 Order name: Basic Metabolic Panel; Complete Time: 20:47 [facility] 05/28 19:42 Order name: CBC with Diff; Complete Time: 20:47 [facility] 05/28 19:42 Order name: LFT's; Complete Time: 20:47 [facility] 05/28 19:42 Order name: Magnesium; Complete Time: 20:47 [facility] 05/28 19:42 Order name: NT PRO-BNP; Complete Time: 20:47 [facility] 05/28 19:42 Order name: PT-INR; Complete Time: 20:47 [facility] 05/28 17:48 Order name: CT Head Brain wo Cont; Complete Time: 20:15 ld1 05/28 19:42 Order name: Troponin (emerg Dept Use Only); Complete Time: 20:47 [facility] 05/28 19:42 Order name: XRAY Chest (1 view); Complete Time: 20:15 [facility] 05/28 19:42 Order name: SARS-COV-2 RT PCR (Document "Date of Onset" if Symptomatic) [facility] 05/28 20:52 Order name: Urine Dipstick-Ancillary; Complete Time: 21:01 [facility] 05/28 19:42 Order name: EKG; Complete Time: 19:43 [facility] 05/28 19:42 Order name: Cardiac monitoring; Complete Time: 20:02 [facility] 05/28 19:42 Order name: EKG - Nurse/Tech; Complete Time: 20:02 [facility] 05/28 19:42 Order name: IV Saline Lock; Complete Time: 20:02 [facility] 05/28 19:42 Order name: Labs collected and sent; Complete Time: 20:02 [facility] 05/28 19:42 Order name: O2 Per Protocol; Complete Time: 20:02 [facility] 05/28 19:42 Order name: O2 Sat Monitoring; Complete Time: 20:03 [facility] 05/28 19:42 Order name: Urine Dipstick-Ancillary (obtain specimen); Complete Time: 20:43 [facility] EC:45 Rate is 82 beats/min. Rhythm is regular. QRS [place] is Normal. MS interval is normal. QRS reagan interval is normal. QT interval is normal. No Q waves. T waves are Normal. No ST changes noted. Clinical impression: Normal ECG and No evidence of ischemia. Interpreted by me. Reviewed by me. Administered Medications: 20:05 Drug: NS 0.9% 500 ml Route: IV; Rate: bolus; Site: right antecubital; tw5 21:41 Follow up: Response: No adverse reaction; IV Status: Completed infusion tw5 20:10 Drug: NS 0.9% 1000 ml Route: IV; Rate: 125 ml/hr; Site: right antecubital; tw5 21:41 Follow up: Response: No adverse reaction; IV Status: Infusion continued upon admission tw5 22:21 Follow up: IV Status: Infusion continued upon admission tw5 20:10 Drug: foLIC Acid 1 mg Route: IVPB; Site: right antecubital; tw5 21:41 Follow up: Response: No adverse reaction; IV Status: Completed infusion 20:43 Drug: Aspirin Chewable Tablet 324 mg Route: PO; 21:41 Follow up: Response: No adverse reaction Disposition Summary: 05/28/21 20:34 Hospitalization Ordered Hospitalization Status: Observation reagan Provider: Gee Bhakta cha Location: Telemetry/MedSurg (observation) reagan Condition: Stable reagan Problem: new reagan Symptoms: have improved reagan Bed/Room Type: Standard reagan Room Assignment: 209(05/28/21 21:49) cg Diagnosis - Headache reagan - Ataxia, unspecified reagan - Essential (primary) hypertension reagan Forms: - Medication Reconciliation Form reagan - SBAR form reagan Signatures: Dispatcher [employer] EDKojo Russell MD MD cha Attema, Lee, FNP-C GATE TENDER-Cla1 Andree Torres RN RN Princess Doyle RN RN cinthia1 Ni [place] tw5 Corrections: (The following items were deleted from the chart) 21:49 20:34 reagan cg
[2021-05-28] MEDS ORDERED: ASPIRIN 81 MG CHEWABLE TABLET ONE (20:38)
[2021-05-28 20:44] LABS: ALT/SGPT 112 U/L (12-78); AST/SGOT 66 U/L (15-37); Albumin 3.7 g/dL (3.4-5.0); Alkaline Phosphatase 103 U/L (45-117); BUN Blood Urea Nitrogen 18 mg/dL (7-18); Bicarbonate 28 mmol/L (21-32); Bilirubin Direct 0.1 mg/dL (0-0.2); Bilirubin Total 0.6 mg/dL (0.2-1.0); Glucose Level 139 mg/dL (74-106); Magnesium 2.4 mg/dL (1.8-2.4); Potassium 3.9 mmol/L (3.5-5.1); Protein, Total 8.1 g/dL (6.4-8.2); Sodium Level 139 mmol/L (136-145)
[2021-05-28 20:47] LABS: NT PRO-BNP 12 pg/mL (<125); Troponin (Emerg Dept Use Only) < 0.02 ng/mL (0.0-0.045)
[2021-05-28 20:52] LABS: Urine Blood Negative (Negative); Urine Glucose Negative (Negative); Urine Protein Negative (Negative); Urine Specific Gravity >=1.030 (1.005-1.030)
--- NOTE | 2021-05-28 21:07 | P.HP ---
Certification for Inpatient Patient admitted to: Observation With expected LOS: <2 Midnights Patient will require the following post-hospital care: None Practitioner: I am a practitioner with admitting privileges, knowledge of patient current condition, hospital course, and medical plan of care. Services: Services provided to patient in accordance with Admission requirements found in Title 42 Section 412.3 of the Code of Federal Regulations Patient History Date of Service: 05/28/21 Primary Care Provider: Dr. Torres Reason for admission: Dizziness, ataxia History of Present Illness: 60-year-old male with history of hypertension, hyperlipidemia, previously treated for diabetes mellitus type 2 presents emergency department for dizziness, difficulty with ambulation. Patient reports that ever since Tuesday this week he began having headache and dizziness, symptoms have mostly resolved except for now with ambulation he feels like he is leaning left and having difficulty. Patient was evaluated in the emergency department labs were significant for glucose 139 AST [address] head brain without contrast negati ve for any acute findings. ED prior wishes to admit under observation for dizziness/ataxia and CVA rule out. Allergies No Known Drug Allergies Allergy (Unverified 12/24/14 20:33) Unknown - Past Medical/Surgical History -: Hypertension -: Hyperlipidemia -: Diabetes type 2diet controlled -: None Psychosocial/ Personal History: Patient is employed working on [employer], lives at home with his siblings - Family History Mother -: Diabetes, Cancer Brother -: Heart disease, Stroke Sister -: Heart disease, Stroke - Social History Smoking Status: Current every day smoker Counseled patient to stop smoking for: less than 10 minutes Smoking therapy provided: No (Patient declined) Alcohol use: No CD- Drugs: No Caffeine use: Yes Place of Residence: Home Review of Systems 10-point ROS is otherwise unremarkable Neurological: Other (Dizziness, ataxia) Physical Examination - Physical Exam General: Alert, In no apparent distress, Oriented x3 HEENT: Atraumatic, PERRLA, Mucous membr. moist/pink, EOMI, Sclerae nonicteric Neck: Supple, 2+ carotid pulse no bruit, No LAD, Without JVD or thyroid abnormality Respiratory: Clear to auscultation bilaterally, Normal air movement Cardiovascular: Regular rate/rhythm, Normal S1 S2 Gastrointestinal: Normal bowel sounds, No tenderness Musculoskeletal: No tenderness Integumentary: No rashes Neurological: Normal speech, Normal strength at 5/5 x4 extr, Normal tone, Normal affect, Abnormal gait (Gait unsteady) Lymphatics: No axilla or inguinal lymphadenopathy - Studies Laboratory Data (last 24 hrs) 05/28/21 20:00: PT 12.7 H, INR 1.10 05/28/21 20:00: WBC 5.50, Hgb 14.6, Hct 44.8, Plt Count 64 L 05/28/21 20:00: Sodium 139, Potassium 3.9, BUN 18, Creatinine 1.05, Glucose 139 H, Magnesium 2.4, Total Bilirubin 0.6, AST 66 H, ALT 112 H, Alkaline Phosphatase 103 Assessment and Plan - Plan Assessment: Dizziness, ataxia Hypertension Hyperlipidemia Diabetes mellitus type 2diet controlled Plan: Dizziness, ataxia: MRI stroke protocol, echocardiogram, carotid artery ultrasound ordered. Neurology consulted continue with aspirin, statin, folic acid. Hypertension: Obtain and continue medication adjust as necessary Hyperlipidemia: Initiated statin therapy, patient reports that he was taken off of his cholesterol medication previously lipid panel ordered. Diabetes mellitus type 2diet controlled: Blood sugar 139, patient reports diet controlled at this time was taken off of his diabetes medications by his primary care doctor. Will obtain A1c with morning labs. DVT PPX: Lovenox Code status: Full Discharge Plan: Home Plan to discharge in: 24 Hours - Advance Directives Does patient have a Living Will: No Does patient have a Durable POA for Healthcare: No - Code Status/Comfort Care Code Status Assessed: Yes (Full code) Critical Care: No Time Spent Managing Pts Care (In Minutes): 55
[2021-05-28] MEDS ORDERED: ATORVASTATIN 40 MG TAB PO SCH (22:40)
[2021-05-28] MEDS ORDERED: ONDANSETRON 4 MG/2 ML VIAL IV PRN (22:40)
[2021-05-28 23:04] VITALS: O2SAT 97
[2021-05-28 23:32] VITALS: BMI 39.5
[2021-05-29 02:34] LABS: Urine Appearance CLEAR (Clear); Urine Bilirubin NEGATIVE (Negative); Urine Blood NEGATIVE (Negative); Urine Color YELLOW (Yellow); Urine Glucose NEGATIVE (Negative); Urine Protein NEGATIVE (Negative); Urine Urobilinogen 0.2 mg/dL (0.2-1.0); Urine pH 5.5 (5.0-7.0)
[2021-05-29 02:47] LABS: Urine Microscopic Reflex NO UMIC
[2021-05-29 06:06] LABS: Absolute Lymphocytes (CBC) 1.1 K/uL (0.7-4.9); Basophils % 0.4 % (0-1.3); Hematocrit 42.3 % (39.6-49.0); Lymphocytes % 22.5 % (15.3-44.8); RBC Red Blood Cell Count 5.03 M/uL (4.33-5.43)
[2021-05-29 06:25] LABS: Albumin 3.3 g/dL (3.4-5.0); Bilirubin Total 0.7 mg/dL (0.2-1.0); Potassium 3.8 mmol/L (3.5-5.1); Protein, Total 7.2 g/dL (6.4-8.2); Thyroid Stimulating Hormone 2.27 uIU/mL (0.360-3.740)
[2021-05-29 07:44] LABS: Blood Morphology Comment NOT SEEN (NOT SEEN); Platelet Estimate DECR; Platelets, Giant FEW
--- NOTE | 2021-05-29 07:57 | RAD REPORT ---
EXAM DESCRIPTION: - CP - 05/29/2021 12:13 am CLINICAL HISTORY: Dizziness/ataxia COMPARISON: None TECHNIQUE: Real-time sonographic evaluation of bilateral carotid and vertebral systems was performed . Joseph scale and Doppler interrogation were performed with waveform tracing bilaterally. FINDINGS: Normal high resistance waveforms are noted in both external carotid arteries. The common c arotid arteries and internal carotid arteries show normal low resistance waveforms. Right-sided carotid vasculature was technically difficult to visualize. Mild plaquing changes in the right bulb are identifiable. There is no significant luminal narrowing. No significant atheroscleroti c change of the left carotid vasculature. Peak systolic and end diastolic velocity values and the ICA /CCA ratios are in the non-hemodynamically significant range. Antegrade flow seen in both vertebral arteries. Velocity values and ratios were recorded and are retained in the patient's imaging records. IMPRESSION: Mild right carotid bulb plaquing. No significant luminal narrowing. No significant disea se on the left. No evidence of a hemodynamically significant stenosis.
--- NOTE | 2021-05-29 08:02 | RAD REPORT ---
EXAM DESCRIPTION: US - Liver Only - 05/29/2021 5:56 am CLINICAL HISTORY: elev. LFT, low plt COMPARISON: No comparisons TECHNIQUE: Sonographic evaluation of the right upper quadrant was performed as a dedicated liver ult rasound study. FINDINGS: Coarsened, increased hepatic echogenicity is present typical for fatty infiltration. No ca psule nodularity seen. Doppler evaluation shows no velocity or flow direction abnormality of the port al vein. Small central hypoechoic focus of the liver is believed to be focally spared parenchyma. Liver is 17-18 cm in maximum dimension. Spleen is 17 cm with no focal splenic abnormality seen. IMPRESSION: Diffuse fatty infiltration of a prominent size liver measuring 17-18 cm. No suspicious focal liver lesion. Splenomegaly to 17 cm.
[2021-05-29] MEDS ORDERED: ASPIRIN EC 81 MG TAB PO SCH (09:00)
[2021-05-29] MEDS ORDERED: FOLIC ACID 1 MG TABLET PO SCH (09:00)
[2021-05-29] MEDS ORDERED: POTASSIUM CL SA 10 MEQ TAB PO ONE (09:00)
[2021-05-29] MEDS ORDERED: ENOXAPARIN 40 MG/0.4 ML SQ SCH (09:00)
[2021-05-29] MEDS ORDERED: ACETAMINOPHEN 500 MG TAB PO PRN (10:44)
[2021-05-29] MEDS ORDERED: LOSARTAN/HCTZ 50-12.5 PO SCH (11:00)
[2021-05-29 16:14] VITALS: BP 140/92; TEMP 98.2
--- NOTE | 2021-05-29 17:59 | P.DS ---
Admission Date: 05/28/21 Discharge Date: 05/29/21 Primary Care Provider: Dr. Torres Disposition: ROUTINE DISCHARGE Discharge Condition: GOOD Reason for Admission: Dizziness, ataxia Consultations: Neurology - Dr. Duarte Procedures: CT Head (05/28): IMPRESSION: Negative non-contrast CT head examination for acute finding. . CXR (05/28): IMPRESSION: Significantly limited examination with no acute cardiopulmonary process. No significant change from comparison study. Carotid U/S (05/28): IMPRESSION: Mild right carotid bulb plaquing. No significant luminal narrowing. No significant disease on the left. No evidence of a hemodynamically significant stenosis. Liver U/S (05/29): IMPRESSION: Diffuse fatty infiltration of a prominent size liver measuring 17- 18 cm. No suspicious focal liver lesion. Splenomegaly to 17 cm. Problem List Dizziness / Vertigo Hypertension Hyperlipidemia Diabetes mellitus type 2diet controlled Fatty Liver Brief History of Present Illness: 60-year-old male with history of hypertension, hyperlipidemia, previously treated for diabetes mellitus type 2 presents emergency department for dizziness, difficulty with ambulation. Patient reports that ever since Tuesday this week he began having headache and dizziness, symptoms have mostly resolved except for now with ambulation he feels like he is leaning left and having difficulty. Patient was evaluated in the emergency department labs were significant for glucose 139 AST [address] head brain without contrast negative for any acute findings. ED prior wishes to admit under observation for dizziness/ataxia and CVA rule out. Hospital Course: CT negative, evaluated by physical therapy and neurology. Neurology felt this was most likely vertigo. Patient was unable to get MRI due to anxiety/panic. He did not want any medication to help him get through the MRI. He had resolution of his symptoms. He was able to ambulate around the floor without any dizziness/vertigo symptoms. He was deemed stable for discharge. Neurology recommended daily 81 mg aspirin and as needed meclizine. He is to follow-up with his PCP in 1 week. Vital Signs/Physical Exam: Temp Pulse Resp BP Pulse Ox 98.2 F 70 20 140/92 H 96 05/29/21 16:00 05/29/21 16:00 05/29/21 16:00 05/29/21 16:00 05/29/21 16:00 General: Alert, In no apparent distress, Oriented x3 HEENT: EOMI, Sclerae nonicteric Neck: Supple, No LAD Respiratory: Clear to auscultation bilaterally, Normal air movement Cardiovascular: No edema, Regular rate/rhythm, No murmurs Gastrointestinal: Soft and benign, Non-distended, No tenderness Integumentary: No significant lesion, No tenderness/swelling Neurological: Normal speech, Normal affect Laboratory Data at Discharge: WBC 4.80 K/uL (4.3-10.9) 05/29/21 05:35 Hgb 14.0 g/dL (13.6-17.9) 05/29/21 05:35 Hct 42.3 % (39.6-49.0) 05/29/21 05:35 Plt Count 64 K/uL (152-406) L 05/29/21 05:35 PT 12.7 SECONDS (9.5-12.5) H 05/28/21 20:00 INR 1.10 05/28/21 20:00 Sodium 141 mmol/L (136-145) 05/29/21 05:35 Potassium 3.8 mmol/L (3.5-5.1) 05/29/21 05:35 BUN 19 mg/dL (7-18) H 05/29/21 05:35 Creatinine 0.94 mg/dL (0.55-1.3) 05/29/21 05:35 Glucose 124 mg/dL (74-106) H 05/29/21 05:35 Magnesium 2.4 mg/dL (1.8-2.4) 05/28/21 20:00 Total Bilirubin 0.7 mg/dL (0.2-1.0) 05/29/21 05:35 AST 63 U/L (15-37) H 05/29/21 05:35 ALT 100 U/L (12-78) H 05/29/21 05:35 Alkaline Phosphatase 74 U/L (45-117) 05/29/21 05:35 Triglycerides 135 mg/dL (<150) 05/29/21 05:35 Cholesterol 124 mg/dL (<200) 05/29/21 05:35 HDL Cholesterol 32 mg/dL (40-60) L 05/29/21 05:35 Cholesterol/HDL Ratio 3.88 05/29/21 05:35 Home Medications: Losartan/Hydrochlorothiazide [Losartan-Hctz 50-12.5 mg Tab] 1 tab PO DAILY 05/28/21 Omeprazole [Prilosec] 40 mg PO DAILY 05/28/21 Aspirin [Aspirin EC 81 MG] 81 mg PO DAILY 30 Days #30 tablet. 05/29/21 Meclizine HCl [Antivert*] 12.5 mg PO Q6H PRN #30 tab 05/29/21 New Medications: Meclizine HCl [Antivert*] 12.5 mg PO Q6H PRN #30 tab PRN Reason: Dizziness Aspirin [Aspirin EC 81 MG] 81 mg PO DAILY 30 Days #30 tablet. Physician Discharge Instructions: Your imaging studies/work-up were all negative/normal. Your evaluated by neurology, Dr. Duarte. Suspect you are dizziness is likely vertigo. Possibly benign paroxysmal positional vertigo. There are some exercise techniques that he can use to help cancel these episodes. If his episodes last longer than a few minutes, you are prescribed a medication called meclizine to help. Can follow-up with neurology in 1 month Follow-up with your PCP in 1 week. You were noted to have mildly elevated liver function tests and low platelets. A liver ultrasound was performed which revealed a fatty liver, as you stated has been diagnosed previously. Diet: AHA Activity: Ad blank Followup: Myesha Fontana RN [Primary Care Provider] - (Call to schedule follow up appointment.)
--- NOTE | 2021-05-29 19:57 | CON ---
Reason For Consultation: Consultation called because of dizziness, vertigo, and possible panic attac k per the patient. History Of Present Illness: Mr. Nichols is a 60-year-old right-handed patient, who said rickey campos this week around Tuesday was driving and suddenly felt dizzy where all seemed to be spinning. He fe lt he was going into "a panic attack." Despite this, he is able to continue with what he was doing, but the symptoms did return and he was noted to have inability to stand up and maintain balance becau se of this dizziness and vertigo, and he sometimes felt he was falling off to the left when ambulatin g. At [facility], his head CT scan was unremarkable. No acute ischemic or hemorrhagic lopez ges identified. The patient could not tolerate an MRI due to a panic attack and he did not want to h ave any medications to calm him down. His carotid artery ultrasound showed no evidence of hemodynami mykel significant stenosis. There was mild right carotid bulb plaquing identified. His additional w orkup included essentially normal complete blood count with differential, normal coagulation panel. His basic metabolic panel showed slightly elevated glucose. Hemoglobin A1c was 7.3. His liver funct ion studies show slightly elevated AST of 63, ALT of 100, and alkaline phosphatase of 74. His LDL ch olesterol was 65 and HDL cholesterol 32. Urinalysis negative. COVID-19 test was negative. He does have a pending hepatitis panel. He did ambulate with a physical therapist and walked reportedly down the [place] and did well ambulating , did not have additional vertigo. Past Medical History: As noted, hypertension, dyslipidemia, and diabetes mellitus. Social History: He does smoke cigarettes on a daily basis. Occasional alcohol use. No IV drug use. Allergies: NO KNOWN DRUG ALLERGIES. Family History: Cancer, diabetes in mother. Brother with diabetes, heart disease, and stroke. [facility]t er with heart disease and stroke. Review of Systems: He denies any recent chills, fevers, myalgias, arthralgias, rash, headache, weight change, psychiatri c issues, or other such problems, although he does seem to have possible panic attacks. Physical Examination: Vital Signs: Blood pressure 144/96, pulse of 75, respiratory rate 16, temperature 98, and oxygen sat uration 92%. General: Mr. Nichols is resting in bed comfortably. He is in no acute distress. HEENT: He is normocephalic, atraumatic. Sclerae anicteric. Oropharynx is pink and moist. Neck: Supple. Chest: Clear. Heart: Regular. Extremities: Show no clubbing, cyanosis, or edema. Neurologic: He is alert and oriented to situation, place, and person. No expressive or receptive ap hasias. Cranial nerves 2 through 12 are intact by exam. Motor examination, he has intact strength i n upper and lower extremities. Sensation, stocking-glove loss to light touch, temperature in upper a nd lower extremities. Reflexes, depressed in upper and lower extremities. Coordination, intact in u pper and lower extremities. Gait, he has good stance, stride, and arm swing. Assessment: Mr. Nichols is a 60-year-old patient with possible positional vertigo. Does seem to have a psychiatric overlay to his condition. No evidence of acute stroke on exam on CT scan. Could not to lerate MRI of the brain. Plan: The patient may be discharged home. He will know how to perform the Will maneuver. He may h ave meclizine as needed. Continue aspirin 81 mg daily, Lipitor 40 mg at bedtime, folic acid 1 mg janette ly. Aggressive management of hypertension and diabetes mellitus. After discharge may follow up with Dr. Duarte in clinic in two to four weeks. JOSE/GENESIS Voice ID: [id number] Report ID: [id number]
--- NOTE | 2021-05-29 20:37 | EKG ---
Test Date: 2021-05-28 Test Time: 19:31:51 Mental Health Nurse: MIYA MEASUREMENT RESULTS: Intervals: Rate: 82 VA: 158 QRSD: 94 QT: 372 QTc: 434 [place]: P: 12 VA: 158 QRS: -18 T: 23 INTERPRETIVE STATEMENTS: Normal sinus rhythm Normal ECG Compared to ECG 05/09/2019 13:02:04 No significant changes Electronically Signed On 05-29-21 20:35:06 AUTO TECHNICIAN MECHANIC by Severo Baldwin
--- OUTSIDE RECORDS SUMMARY | 2021-05-30 21:50 | XMS REPORT | Continuity of Care Document ---
:1960 Author Organization [facility] t Address [address] [place] [address] [address] [place] [address] Care Team Providers Name Role Phone Ciarra GALARZA Attending Clinician Unavailable Problems This patient has no known problems. Allergies, Adverse Reactions, Alerts Allergy Allergy Status Severity Reaction(s) Onset Inactive Treating Comm ents Source Name Type Date Date Clinician NO KNOWN Drug Active Univers ALLERGIE Vera christensen of [facility] Medications This patient has no known medications. Procedures This patient has no known procedures. Encounters Start End Encounter Admission Attending Care Care Encounter Source Date/Time Date/Time Type Type Clinicians Facility Department ID 2020-07-08 2020-07-08 Outpatient R MARIA ISABEL GALARZA [facility] [id number] 08:30:00 08:30:[address] [facility] Results This patient has no known results.
--- NOTE | 2021-06-01 08:22 | ECHO ---
HEIGHT: 5 ft 8 in WEIGHT: 260 lb 0 oz DATE OF STUDY: 05/29/[address]: Joel Gaspar NP 2-DIMENSIONAL: YES M.MODE: YES DOPPLER: YES COLOR FLOW: YES TDS: NO PORTABLE: NO DEFINITY: NO BUBBLE STUDY: NO DIAGNOSIS: DIZZINESS, ATAXIA CARDIAC HISTORY: CATHERIZATION: NO SURGERY: NO PROSTHETIC VALVE: NO PACEMAKER: NO MEASUREMENTS (cm) DIASTOLIC (NORMALS) SYSTOLIC (NORMALS) IVSd 1.1 (0.6-1.2) LA Diam 3.1 (1.9-4.0) LVEF 75% LVIDd 4.6 (3.5-5.7) LVIDs 2.6 (2.0-3.5) %FS 44% LVPWd 1.1 (0.6-1.2) Ao Diam 3.3 (2.0-3.7) 2 DIMENSIONAL ASSESSMENT: RIGHT ATRIUM: NORMAL LEFT ATRIUM: NORMAL RIGHT VENTRICLE: NORMAL LEFT VENTRICLE: NORMAL TRICUSPID VALVE: NORMAL MITRAL VALVE: NORMAL PULMONIC VALVE: NORMAL AORTIC VALVE: NORMAL PERICARDIAL EFFUSION: NONE AORTIC ROOT: NORMAL LEFT VENTRICULAR WALL MOTION: NORMAL DOPPLER/COLOR FLOW: NORMAL COMMENTS: NORMAL 2D ECHOCARDIOGRAM WITH DOPPLER. NO WALL MOTION ABNORMALITY. NO EFFUSION. TECHNOLOGIST: Praneeth HOYOS
[2021-06-03 04:49] LABS: HBsAG Nonreactive (Nonreactive)
== END 2021-05-29 17:46 | disposition home or self-care (01) ==
LOC: ER 17:34 → ERHOLD 21:36 → 2ND 21:53
PROVIDERS: ADMIT Hospitalist; ATTEND Hospitalist
DX: R42 Dizziness and giddiness (principal); R27.0 Ataxia, unspecified; K76.0 Fatty (change of) liver, not elsewhere classified; I10 Essential (primary) hypertension; E78.5 Hyperlipidemia, unspecified; E11.9 Type 2 diabetes mellitus without complications; F17.200 Nicotine dependence, unspecified, uncomplicated; Z20.822 Contact with and (suspected) exposure to COVID-19
CPT/HCPCS: 36415; 70450; 71045; 76705; 80048; 80053; 80061; 80074; 80076; 81003; 82947; 83036; 83735; 83880; 84439; 84443; 84484; 85025; 85610; 93005; 93306; 93880; 96365; 96366; 97161; 99285; G0378; J7030; J7040; U0003

== ENCOUNTER 2022-03-11 14:24 | Observation (INO) | payer SELFPAY ==
--- OUTSIDE RECORDS SUMMARY | 2022-03-11 14:28 | XMS REPORT | Continuity of Care Document ---
:1960 Author Organization [facility] t Address [address] [place] [address] Care Team Providers Name Role Phone Unavailable Unavailable Unavailable Problems This patient has no known problems. Allergies, Adverse Reactions, Alerts This patient has no known allergies or adverse reactions. Medications This patient has no known medications. Procedures This patient has no known procedures. Results Test Description Test Time Test Comments Results Result Comments Source HEMOGLOBIN A1c 2021-12-09 07:08:32 Test Item Value Reference Range Interpretation Comme nts HEMOGLOBIN A1c (test code = 10.1 % 4.2-5.6 H [employer] 29581) GUIDELINES FOR HGB A1C: PREDIABETES/INC REASED RISK . . . . . . . 5.7-6.4% DIAG NOSIS OF DIABETES . . . . . . . . . >=6 .5% WITH CONFIRMATION OR APPROPRIATE SYM PTOMS NOTE: ASSAY MAY BE AFFECTED BY HEM OGLOBINOPATHIES (SICKLE CELL ANEMIA, S- C DISEASE, OTHERS) OR ARTIFICIALLY LO WERED BY DECREASED RED CELL SURVIVAL ( HEMOLYTIC ANEMIAS, BLOOD LOSS, ETC.). CO NSIDER ALTERNATE TESTING OR LABORATORY C ONSULTATION. PSA, [id number] 06:17:48 Test Item Value Reference Range Interpretation Comments PSA, TOTAL 5.45 NG/ML See_Comment H NOTE: Methodol ogy is Arlen (test code = Tatum Electroch emiluminescence 2606) Immunoassay tra ceable to WHO reference stand kayla 96/760. [Automated mess age] The system which generated this result transmitted ref erence range: <=4.00. The ref erence range was not used to int erpret this result as zain l/abnormal. COMPREHENSIVE METABOLIC [id number] 05:55:49 Test Item Value Reference Range Interpretation Comments GLUCOSE (test code = 162 MG/DL 70-99 H 2216) BUN (test code = 24 MG/DL 6-20 H 2207) CREATININE (test 1.01 MG/DL 0.80-1.40 code = 221) eGFR (2020 CKD-EPI) 86 ML/MIN/1.73 >60 (test code = 08460) CALC BUN/CREAT (test 24 RATIO 6-28 code = 2235) SODIUM (test code = 138 MEQ/L 001-107 1976) POTASSIUM (test code 3.8 MEQ/L 3.5-5.4 = 2227) CHLORIDE (test code 99 MEQ/L 95-107 = 2214) CARBON DIOXIDE (test 26 MEQ/L 19-31 code = 220) CALCIUM (test code = 9.9 MG/DL 8.5-10.5 2208) PROTEIN, TOTAL (test 8.3 G/DL 6.1-8.3 code = 2228) ALBUMIN (test code = 4.6 G/DL 3.5-5.2 2200) CALC GLOBULIN (test 3.7 G/DL 1.9-3.7 code = 224) CALC A/G RATIO (test 1.2 RATIO 1.0-2.6 code = 223) BILIRUBIN, TOTAL 1.2 MG/DL See_Comment [Automated message] (test code = 220) The syste m which generated this result transmit savannah reference range : <=1.2. The refe rence range was not u sed to interpret th is result as normal/abnormal . ALKALINE PHOSPHATASE 108 U/L 40-123 (test code = 2204) AST (test code = 93 U/L 9-50 H 2217) ALT (test code = 119 U/L 5-50 H 2218) LIPID [id number] 05:55:49 Test Item Value Reference Range Interpretation Comments CHOLESTEROL (test 152 MG/DL <200 code = 2210) TRIGLYCERIDES (test 149 MG/DL <150 code = 2232) HDL CHOLESTEROL (test 35 MG/DL >39 L code = 2220) CALC LDL CHOL (test 92 MG/DL <100 NOTE: C ALCULATED LDL code = 2237) IS BASED ON JARED-DAVIDSON METHOD WHICHINCLUDES ADJUSTABLE TRIGLYCERIDE:VL DL CHOLESTEROL RAT IO.THIS FACTOR VARIES B Y MEASURED TRIGLY CERIDE AND NON-HDLCHOL ESTEROL CONCENTRATIONS WITH INCREASED CALCU LATED LDL SEENIN HIGH ER TRIGLYCERIDE OR LOWER NON-HDL SPECIME NS. FOR MOREINFORMATION , SEE CLIENT ANNOUNCE MENT AT [email or web address] LDL/HDL 2.63 RATIO <3.55 UNLESS O THERWISE (test code = 223) INDICATED , ALL TESTING PERFORMED [facility], [place]. [address] [place] [address] DEMETRIUS BERRY DIRECTOR: EAGLE MONCADA M.D. CLIA NUMBER [id number] CAP ACCREDITATION N O. [id number] COMPREHENSIVE METABOLIC [id number] 04:52:22 Test Item Value Reference Range Interpretation Comments GLUCOSE (test code = 124 MG/DL 70-99 H 2216) BUN (test code = 21 MG/DL 6-20 H 2207) CREATININE (test 0.97 MG/DL 0.80-1.40 code = 221) eGFR (2020 CKD-EPI) 90 ML/MIN/1.73 >60 (test code = 71710) CALC BUN/CREAT (test 22 RATIO 6-28 code = 2235) SODIUM (test code = 139 MEQ/L 281-623 4076) POTASSIUM (test code 4.0 MEQ/L 3.5-5.4 = 2227) CHLORIDE (test code 102 MEQ/L 95-107 = 2214) CARBON DIOXIDE (test 25 MEQ/L 19-31 code = 2206) CALCIUM (test code = 9.3 MG/DL 8.5-10.5 2208) PROTEIN, TOTAL (test 7.5 G/DL 6.1-8.3 code = 2229) ALBUMIN (test code = 3.9 G/DL 3.5-5.2 2200) CALC GLOBULIN (test 3.6 G/DL 1.9-3.7 code = 2240) CALC A/G RATIO (test 1.1 RATIO 1.0-2.6 code = 2234) BILIRUBIN, TOTAL 0.9 MG/DL See_Comment [Automated message] (test code = 2207) The syste m which generated this result transmit savannah reference range : <=1.2. The refe rence range was not u sed to interpret th is result as normal/abnormal . ALKALINE PHOSPHATASE 107 U/L 40-123 (test code = 2204) AST (test code = 54 U/L 9-50 H 2217) ALT (test code = 60 U/L 5-50 H 2218) LIPID [id number] 04:52:22 Test Item Value Reference Range Interpretation Comments CHOLESTEROL (test 126 MG/DL <200 code = 2210) TRIGLYCERIDES (test 136 MG/DL <150 code = 2232) HDL CHOLESTEROL (test 26 MG/DL >39 L code = 2220) CALC LDL CHOL (test 77 MG/DL <100 NOTE: C ALCULATED LDL code = 2237) IS BASED ON JARED-DAVIDSON METHOD WHICHINCLUDES ADJUSTABLE TRIGLYCERIDE:VL DL CHOLESTEROL RAT IO.THIS FACTOR VARIES B Y MEASURED TRIGLY CERIDE AND NON-HDLCHOL ESTEROL CONCENTRATIONS WITH INCREASED CALCU LATED LDL SEENIN HIGH ER TRIGLYCERIDE OR LOWER NON-HDL SPECIME NS. FOR MOREINFORMATION , SEE CLIENT ANNOUNCE MENT AT [email or web address] [email or web address] LDL/HDL 2.96 RATIO <3.55 (test code = 2238) HEMOGLOBIN [id number] 04:26:41 Test Item Value Reference Range Interpretation Comments HEMOGLOBIN A1c (test 8.8 % 4.2-5.6 H [employer] code = 68667) ASSOCIATION IDELINES FOR HGB A1C: PREDIABETES/INC REASED RISK . . . . . . . 5.7 -6.4% DIAGNOSIS OF DI ABETES . . . . . . . . . >=6 .5% WITH CONFIRMATION OR APPROPRIATE SYMPTOMS NOTE: ASSAY MAY BE AFFECTED BY HEMOGLOBINOPATH IES (SICKLE CELL ANEMIA, S- C DISEASE, OTHERS) OR TODD FICIALLY LOWERED BY DECR EASED RED CELL SURVIVAL ( HEMOLYTIC ANEMIAS, BLOOD LOSS, ETC.). CONSIDER ALTERN ATE TESTING OR LABORATORY C ONSULTATION. UNLESS OTHERWIS E INDICATED, ALL TESTING PER FORMED [facility] [place]. [address] [place] [address] LAB[address] DIRE CTOR: EAGLE MONCADA M.D. CLIA NUMBER [id number] [place]. [id number]
--- NOTE | 2022-03-11 15:08 | RAD REPORT ---
EXAM DESCRIPTION: CT - Ct Stroke Brain Wo Cont - 03/11/2022 2:57 pm CLINICAL HISTORY: Facial droop COMPARISON: 2020 TECHNIQUE: Computed axial tomography of the head was obtained. All CT scans are performed using dose optimization technique as appropriate and may include automated exposure control or mA/KV adjustment according to patient size. FINDINGS: An intracranial bleed is not seen . The ventricles are normal in caliber. No extra-axial fluid collection is noted. Mild to moderate low-density within periventricular, deep and subcortical white matter likely ischemi c changes secondary to small vessel disease Fluid within the sinuses/ mastoids is not seen. IMPRESSION: No acute intracranial abnormality is seen. If patient's symptoms persist MRI of the bra in would be recommended. Rosa of the emergency room was notified at 3:04 p.m. March 11, 2022
[2022-03-11 15:10] LABS: Absolute Lymphocytes (CBC) 0.9 K/uL (0.7-4.9); Hematocrit 42.7 % (39.6-49.0); Lymphocytes % 16.1 % (15.3-44.8); MCV 83.5 fL (80-100); MPV 10.8 fL (7.6-11.3); RBC Red Blood Cell Count 5.11 M/uL (4.33-5.43)
[2022-03-11 15:17] LABS: Protime INR 1.05
[2022-03-11 15:21] LABS: Potassium 4.2 mmol/L (3.5-5.1)
[2022-03-11] MEDS ORDERED: FOLIC ACID 5 MG/ML VIAL ONE (15:22)
--- NOTE | 2022-03-11 15:23 | RAD REPORT ---
EXAM DESCRIPTION: Max Single View03/11/2022 3:12 pm CLINICAL HISTORY: Hypertension/CVA COMPARISON: 2020 FINDINGS: The lungs appear clear of acute infiltrate. The heart is normal size IMPRESSION: No acute abnormalities displayed
--- NOTE | 2022-03-11 15:45 | RAD REPORT ---
EXAM DESCRIPTION: USCarotid Artery Bilateral03/11/2022 3:38 pm CLINICAL HISTORY: Dizziness/ataxia COMPARISON: 2020 FINDINGS: The velocity of the right internal carotid artery equals 95 cm/sec. The right ICA/CCA rati o 1.1 The velocity of the left internal carotid artery equals 85 cm/sec. The left ICA/CCA ratio 1.1 Mild plaque is present within the carotid arteries. The vertebral arteries demonstrate antegrade flow IMPRESSION: Mild plaque within the carotid arteries without evidence of a hemodynamically significan t stenosis NASCET criteria used. Mild 0-49% stenosis Moderate 50-69% stenosis Severe 70-99% stenosis
--- NOTE | 2022-03-11 15:51 | ER ---
Nurse's Notes [facility] Name: Freddy Nichols Age: 61 yrs Sex: Male : 1960 Arrival Date: 03/11/2022 Time: 14:26 Bed 23 Private MD: Diagnosis: Other cerebral infarction Presentation: 03/11 14:30 Chief complaint: Patient states: "My boss said he noticed at 7 this morning that the L ss side of my face is doing this." L sided facial droop noted. Pt has no other deficits at this time. Coronavirus screen: Client denies travel out of the [place] in the last 14 days. Ebola Screen: Patient denies exposure to infectious person. Patient denies travel to an Ebola-affected area in the 21 days before illness onset. An acute neurological deficit is present. Pre-hospital glucose is not applicable to this patient. Initial Sepsis Screen: Does the patient meet any 2 criteria? No. Patient's initial sepsis screen is negative. Does the patient have a suspected source of infection? No. Patient's initial sepsis screen is negative. Risk Assessment: Do you want to hurt yourself or someone else? Patient reports no desire to harm self or others. Onset of symptoms was March 11, 2022 at 07:00. 14:30 Method Of Arrival: Ambulatory ss 14:30 Acuity: CHASE 3 ss Triage Assessment: 14:43 The onset of the patients symptoms was. ss 14:47 The onset of the patients symptoms was March 10, 2022 at 21:00. General: Appears in no tw2 apparent distress. Behavior is cooperative, appropriate for age. Neuro: Facial droop on left. 16:45 Neuro: Reports. tw2 Stroke Activation: Symptom onset > 6 hours Physician: Stroke Attending; Name: ; Notified At: ; Arrived At: Physician: Chief Stroke Resident; Name: ; Notified At: ; Arrived At: Physician: Stroke Resident; Name: ; Notified At: ; Arrived At: Physician: ED Attending; Name: ; Notified At: ; Arrived At: Physician: ED Resident; Name: ; Notified At: ; Arrived At: Historical: - Allergies: 14:42 No Known Allergies; ss - Home Meds: 16:46 losartan-hydrochlorothiazide 50-12.5 mg Oral tab 1 tab once daily [Active]; Melatonin tw2 Oral [Active]; omeprazole 40 mg Oral cpDR 1 cap once daily [Active]; Unknown cholesterol med [Active]; Unknown diuretic [Active]; - PMHx: 14:31 Hyperlipidemia; Hypertension; ss 14:43 GERD; ss - Immunization history:: Client reports having NOT received the Covid vaccine. - Social history:: Smoking status: Patient reports the use of cigarette tobacco products, 3 cigarettes/ day. Screenin:06 Abuse screen: Denies threats or abuse. Nutritional screening: No deficits noted. tw2 Tuberculosis screening: No symptoms or risk factors identified. Patient has been NPO before screening. The patient is alert, able to follow commands. The patient does not exhibit slurred or garbled speech The patient is not exhibiting difficulty speaking. The patient does not exhibit difficulty understanding words. The patient is able to swallow own secretions with no drooling or need for suction. Patient tolerated one teaspoon of water. No drooling, immediate coughing, gurgling, or clearing of the throat was noted. The patient did not tolerate 90mL of water. Drooling, immediate coughing, gurgling, or clearing of the throat was noted. Bedside swallow screening discontinued. Patient kept NPO until cleared by Speech Therapy or Physician. The patient failed the bedside swallow screening. The patient will be kept NPO until cleared by Speech Therapy or Physician. Provider notified of bedside swallow screening results: Rosa Flowers R D ENGINEER-C. Fall Risk None identified. Assessment: 14:44 VAN Scoring: Arm Drift: Patients demonstrates NO arm weakness. Patient is VAN Negative. ss Visual Disturbance: No visual disturbance noted. Aphasia: No aphasia noted. Neglect: No neglect noted. 14:44 TNKase (Tenecteplase) Screening: Contraindications: Patient reports onset of signs and tw2 symptoms of stroke greater than 6 hours ago: Yes. 15:07 Patient has been NPO before screening. The patient is alert, and able to follow tw2 commands. The patient does not exhibit slurred or garbled speech. The patient is not exhibiting difficulty speaking. The patient does not exhibit difficulty understanding words. The patient is able to swallow own secretions with no drooling or need for suction. Patient tolerated one teaspoon of water. No drooling, immediate coughing, gurgling, or clearing of the throat was noted. The patient did not tolerate 90mL of water. Drooling, immediate coughing, gurgling, or clearing of the throat was noted. Bedside swallow screening discontinued. Patient kept NPO until cleared by Speech Therapy or Physician. The patient failed the bedside swallow screening. The patient will be kept NPO until cleared by Speech Therapy or Physician. Provider notified of bedside swallow screening results: Rosa Flowers R D ENGINEER-C. General: Appears in no apparent distress. obese, well groomed, Behavior is calm, cooperative, appropriate for age. Pain: Denies pain. Neuro: Yanez Agitation-Sedation Scale (RASS): 0 - Alert and Calm Level of Consciousness is awake, alert, obeys commands, Oriented to person, place, time, situation. Neuro: Facial droop on left. Cardiovascular: Patient's skin is warm and dry. Respiratory: Airway is patent Respiratory effort is even, unlabored. GI: Abdomen is round. Musculoskeletal: Range of motion: intact in all extremities. 15:23 Reassessment: pt in US at this time, then CT Angio. tw2 15:51 [facility] tw[facility] 16:45 Reassessment: Patient appears in no apparent distress at this time. No changes from tw2 previously documented assessment. Patient and/or family updated on plan of care and expected duration. Pain level reassessed. Patient is alert, oriented x 3, equal unlabored respirations, skin warm/dry/pink. 17:47 Reassessment: Patient appears in no apparent distress at this time. No changes from tw2 previously documented assessment. Patient and/or family updated on plan of care and expected duration. Pain level reassessed. Patient is alert, oriented x 3, equal unlabored respirations, skin warm/dry/pink. 18:46 Reassessment: Patient appears in no apparent distress at this time. No changes from tw2 previously documented assessment. Patient and/or family updated on plan of care and expected duration. Pain level reassessed. Patient is alert, oriented x 3, equal unlabored respirations, skin warm/dry/pink. 19:48 Reassessment: Patient appears in no apparent distress at this time. Patient and/or jb4 family updated on plan of care and expected duration. Pain level reassessed. Patient is alert, oriented x 3, equal unlabored respirations, skin warm/dry/pink. Vital Signs: 15:10 Temp 97.9(TE); tw2 16:40 BP 136 / 78; Pulse 84; Resp 17; Pulse Ox 97% on 1 lpm NC; tw2 17:46 BP 113 / 89; Pulse 78; Resp 17; Pulse Ox 97% on 1 lpm NC; tw2 18:45 BP 127 / 79; Pulse 75; Resp 17; Pulse Ox 98% on 1 lpm NC; tw2 19:30 BP 122 / 84; Pulse 78; Resp 16; Pulse Ox 95% on R/A; jb4 [place] Coma Score: 14:56 Eye Response: spontaneous(4). Verbal Response: oriented(5). Motor Response: obeys snw commands(6). Total: 15. NIH Stroke Scale Scores: 14:44 NIHSS Score: 2 ss 14:56 NIHSS Score: 3 snw 19:15 NIHSS Score: 2 jb4 ED Course: 14:26 Patient arrived in ED. am2 14:31 Triage completed. ss 14:43 Arm band placed on right wrist. ss 14:48 Rosa Flowers FNP-C is PHCP. snw 14:48 Dion Carbone DO is Attending Physician. snw 14:50 Bed in low position. Call light in reach. Adult w/ patient. piggery worker on. Pulse tw2 ox on. NIBP on. 14:59 CT Stroke Brain w/o Contrast In Process Unspecified. EDMS 15:05 Inserted saline lock: 20 gauge in right antecubital area, using aseptic technique. tw2 ,using aseptic technique. AZEB Dunaway Blood collected. 15:12 Samantha Alcantara RN is Primary Nurse. tw2 15:14 Stroke CXR 1 View In Process Unspecified. EDMS 15:40 Carotid Artery Bilateral US In Process Unspecified. EDMS 15:45 CT Head Angio In Process Unspecified. EDMS 15:49 Willard Lowry is Hospitalizing Provider. snw 19:30 No provider procedures requiring assistance completed. Patient admitted, IV remains in jb4 place. Administered Medications: 15:16 Drug: foLIC Acid 1 mg Route: IVPB; Site: right antecubital; tw2 15:17 Follow up: Response: No adverse reaction; IV Status: Completed infusion; IV Intake: tw2 0.2ml Medication: 15:23 VIS not applicable for this client. tw2 Point of Care Testing: Blood Glucose: 15:02 Blood Glucose: 142 mg/dL; ld1 Ranges: Intake: 15:17 IV: 0ml; Total: 0ml. tw2 Outcome: 15:50 Decision to Hospitalize by Provider. snw 19:50 Admitted to [facility] 19:50 Condition: stable 19:50 Discharge instructions given to patient, Instructed on the need for admit, Demonstrated understanding of instructions. 19:51 Patient left the ED. [facility] NIH Stroke Scale - NIH Stroke Score Date: 03/11/2022 Time: 14:44 Total Score = 2 1a. Level of Consciousness (LOC) - 0(Alert) 1b. Level of Consciousness (LOC) (Month \\T\\ Age) - 0(Both) 1c. LOC Commands (Open \\T\\ Closes Eyes/Bankruptcy Paralegal) - 0(Both) 2. Best Gaze (Lateral Gaze Paresis) - 0(Normal) 3. Visual Field Loss - 0(No visual loss) 4. Facial Palsy - 2(Partial paralysis) 5a. Left Arm: Motor (10-second hold) - 0(No drift) 5b. Right Arm: Motor (10-second hold) - 0(No drift) 6a. Left Leg: Motor (5-second hold - always test supine) - 0(No drift) 6b. Right Leg: Motor (5-second hold - always test supine) - 0(No drift) 7. Limb Ataxia (finger/nose \\T\\ heel/[place] - test with eyes open) - 0(Absent) 8. Sensory Loss (pinprick arms/legs/face) - 0(Normal) 9. Best Language: Aphasia (description/naming/reading) - 0(No aphasia) 10. Dysarthria (speech clarity - read or repeat words) - 0(Normal) 11. Extinction and Inattention (visual/tactile/auditory/spatial/personal) - 0(No abnormality) Initials: NIH Stroke Scale - NIH Stroke Score Date: 03/11/2022 Time: 14:56 Total Score = 3 1a. Level of Consciousness (LOC) - 0(Alert) 1b. Level of Consciousness (LOC) (Month \\T\\ Age) - 0(Both) 1c. LOC Commands (Open \\T\\ Closes Eyes/Bankruptcy Paralegal) - 0(Both) 2. Best Gaze (Lateral Gaze Paresis) - 0(Normal) 3. Visual Field Loss - 0(No visual loss) 4. Facial Palsy - 2(Partial paralysis) 5a. Left Arm: Motor (10-second hold) - 0(No drift) 5b. Right Arm: Motor (10-second hold) - 0(No drift) 6a. Left Leg: Motor (5-second hold - always test supine) - 0(No drift) 6b. Right Leg: Motor (5-second hold - always test supine) - 0(No drift) 7. Limb Ataxia (finger/nose \\T\\ heel/[place] - test with eyes open) - 0(Absent) 8. Sensory Loss (pinprick arms/legs/face) - 0(Normal) 9. Best Language: Aphasia (description/naming/reading) - 0(No aphasia) 10. Dysarthria (speech clarity - read or repeat words) - 1(Mild to Moderate) 11. Extinction and Inattention (visual/tactile/auditory/spatial/personal) - 0(No abnormality) Initials: [facility] NIH Stroke Scale - NIH Stroke Score Date: 03/11/2022 Time: 19:15 Total Score = 2 1a. Level of Consciousness (LOC) - 0(Alert) 1b. Level of Consciousness (LOC) (Month \\T\\ Age) - 0(Both) 1c. LOC Commands (Open \\T\\ Closes Eyes/Bankruptcy Paralegal) - 0(Both) 2. Best Gaze (Lateral Gaze Paresis) - 0(Normal) 3. Visual Field Loss - 0(No visual loss) 4. Facial Palsy - 1(Minor Paralysis) 5a. Left Arm: Motor (10-second hold) - 0(No drift) 5b. Right Arm: Motor (10-second hold) - 0(No drift) 6a. Left Leg: Motor (5-second hold - always test supine) - 0(No drift) 6b. Right Leg: Motor (5-second hold - always test supine) - 0(No drift) 7. Limb Ataxia (finger/nose \\T\\ heel/[place] - test with eyes open) - 0(Absent) 8. Sensory Loss (pinprick arms/legs/face) - 0(Normal) 9. Best Language: Aphasia (description/naming/reading) - 0(No aphasia) 10. Dysarthria (speech clarity - read or repeat words) - 1(Mild to Moderate) 11. Extinction and Inattention (visual/tactile/auditory/spatial/personal) - 0(No abnormality) Initials: jb4 Signatures: Dispatcher [employer] EDMS Rosa Flowers, R D ENGINEER-C R D ENGINEER-Csnw Pamela Coleman RN RN ss Samantha Alcantara RN RN tw2 Kevin Richter RN RN jb4 Emelyn Khalil am2 Princess Doyle RN RN ld1 Corrections: (The following items were deleted from the chart) 15:51 14:44 TNKase (Tenecteplase) Screening: Indications: Treatment will start within tw2 4.5 hours onset of symptoms: No. ss
--- NOTE | 2022-03-11 15:51 | EDPHYS ---
Physician Documentation [facility] Name: Freddy Nichols Age: 61 yrs Sex: Male : 1960 Arrival Date: 03/11/2022 Time: 14:26 Bed 23 Private MD: ED Physician Dion Carbone HPI: 03/11 14:51 This 61 yrs old Male presents to ER via Ambulatory with complaints of S/S of snw Possible Stroke, Slurred Speech, Facial Droop, Dizziness. 14:51 The patient's problem is reported as left facial droop. Onset: The symptoms/episode snw began/occurred last night, and became worse this morning, 0900. 14:53 Duration: The episode is continuous. Context: the episode(s) was witnessed, by snw co-worker(s), symptoms became apparent pt did not notice s/s, coworker sent pt to ED. last saw normal at 2100 last night, occurred at home, occurred while the patient was. The symptoms are alleviated by nothing. The symptoms are aggravated by nothing. Associated signs and symptoms: Pertinent positives: dizziness, tingling. Severity of symptoms: At their worst the symptoms were moderate. Patient's baseline: Neuro: alert and fully oriented, Motor: no deficits, Ambulation: walks without assistance, Speech: normal, The patient has a previous history of HTN, borderline DM. The patient has not experienced similar symptoms in the past. The patient has not recently seen a physician. Historical: - Allergies: 14:42 No Known Allergies; ss - Home Meds: 16:46 losartan-hydrochlorothiazide 50-12.5 mg Oral tab 1 tab once daily [Active]; Melatonin tw2 Oral [Active]; omeprazole 40 mg Oral cpDR 1 cap once daily [Active]; Unknown cholesterol med [Active]; Unknown diuretic [Active]; - PMHx: 14:31 Hyperlipidemia; Hypertension; ss 14:43 GERD; ss - Immunization history:: Client reports having NOT received the Covid vaccine. - Social history:: Smoking status: Patient reports the use of cigarette tobacco products, 3 cigarettes/ day. ROS: 14:55 Constitutional: Negative for fever, chills, and weight loss, Eyes: Negative for injury, snw pain, redness, and discharge, ENT: Negative for injury, pain, and discharge, left sided facial droop, forehead mildly affected Neck: Negative for injury, pain, and swelling, Cardiovascular: Negative for chest pain, palpitations, and edema, Respiratory: Negative for shortness of breath, cough, wheezing, and pleuritic chest pain, Abdomen/GI: Negative for abdominal pain, nausea, vomiting, diarrhea, and constipation, Back: Negative for injury and pain, : Negative for injury, bleeding, discharge, and swelling, MS/Extremity: Negative for injury and deformity, Skin: Negative for injury, rash, and discoloration. 14:55 Neuro: Positive for dizziness, speech changes. Exam: 14:56 Constitutional: This is a well developed, well nourished patient who is awake, alert, snw and in no acute distress. 14:56 Eyes: Pupils equal round and reactive to light, extra-ocular motions intact. Lids and lashes normal. Conjunctiva and sclera are non-icteric and not injected. Cornea within normal limits. Periorbital areas with no swelling, redness, or edema. ENT: Nares patent. No nasal discharge, no septal abnormalities noted. Tympanic membranes are normal and external auditory canals are clear. Oropharynx with no redness, swelling, or masses, exudates, or evidence of obstruction, uvula midline. Mucous membranes moist. 14:56 Neck: Trachea midline, no thyromegaly or masses palpated, and no cervical lymphadenopathy. Supple, full range of motion without nuchal rigidity, or vertebral point tenderness. No Meningismus. Chest/axilla: Normal chest wall appearance and motion. Nontender with no deformity. No lesions are appreciated. Cardiovascular: Regular rate and rhythm with a normal S1 and S2. No gallops, murmurs, or rubs. Normal PMI, no JVD. No pulse deficits. Respiratory: Lungs have equal breath sounds bilaterally, clear to auscultation and percussion. No rales, rhonchi or wheezes noted. No increased work of breathing, no retractions or nasal flaring. Abdomen/GI: Soft, non-tender, with normal bowel sounds. No distension or tympany. No guarding or rebound. No evidence of tenderness throughout. Back: No spinal tenderness. No costovertebral tenderness. Full range of motion. Skin: Warm, dry with normal turgor. Normal color with no rashes, no lesions, and no evidence of cellulitis. MS/ Extremity: Pulses equal, no cyanosis. Neurovascular intact. Full, normal range of motion. 14:56 Head/face: Noted is left sided droop, left forehead mildly affected. 14:56 Neuro: Orientation: to person, place \T\ time. Mentation: is normal, Memory: is normal, Cranial nerves: facial droop noted on left, with forehead involved. Cerebellar function: is grossly normal, Motor: is normal, Sensation: tingling, that is mild, of the left cheek, seizure activity, is not displayed by the patient. 15:02 Radiologist reports: Dr. Frederick phoned with Negative CT result snw Vital Signs: 15:10 Temp 97.9(TE); tw2 16:40 BP 136 / 78; Pulse 84; Resp 17; Pulse Ox 97% on 1 lpm NC; tw2 17:46 BP 113 / 89; Pulse 78; Resp 17; Pulse Ox 97% on 1 lpm NC; tw2 18:45 BP 127 / 79; Pulse 75; Resp 17; Pulse Ox 98% on 1 lpm NC; tw2 19:30 BP 122 / 84; Pulse 78; Resp 16; Pulse Ox 95% on R/A; jb4 NIH Stroke Scale Scores: 14:44 NIHSS Score: 2 ss 14:56 NIHSS Score: 3 snw 19:15 NIHSS Score: 2 jb4 Gorham Coma Score: 14:56 Eye Response: spontaneous(4). Verbal Response: oriented(5). Motor Response: obeys snw commands(6). Total: 15. MDM: 15:16 Patient medically screened. snw 15:50 Data reviewed: vital signs, nurses notes. Data interpreted: Pulse oximetry: on room air snw is 98 %. Interpretation: normal. Counseling: I had a detailed discussion with the patient and/or guardian regarding: the historical points, exam findings, and any diagnostic results supporting the discharge/admit diagnosis, the presence of at least one elevated blood pressure reading (>120/80) during this emergency department visit, lab results, radiology results, the need for further work-up and treatment in the hospital. Physician consultation: Willard Essence was called at 15:30, was contacted at 15:30, regarding admission. 03/11 14:49 Order name: Basic Metabolic Panel; Complete Time: 15:21 snw 03/11 14:49 Order name: CBC with Diff; Complete Time: 16:07 snw 03/11 14:49 Order name: Protime (+inr); Complete Time: 15:20 snw 03/11 14:49 Order name: Ptt, Activated; Complete Time: 15:20 snw 03/11 15:10 Order name: Glucose, Ancillary Testing; Complete Time: 15:16 EDMS 03/11 15:34 Order name: SARS RAPID; Complete Time: 16:50 snw 03/11 14:49 Order name: CT Stroke Brain w/o Contrast; Complete Time: 15:16 snw 03/11 14:49 Order name: Stroke CXR 1 View; Complete Time: 15:34 snw 03/11 14:49 Order name: EKG; Complete Time: 14:50 snw 03/11 14:49 Order name: Accucheck; Complete Time: 15:02 snw 03/11 14:49 Order name: Carotid Artery Bilateral US; Complete Time: 15:51 snw 03/11 14:50 Order name: CT Head Angio; Complete Time: 16:07 snw 03/11 16:02 Order name: CBC Smear Scan; Complete Time: 16:07 EDMS 03/11 14:49 Order name: Cardiac monitoring; Complete Time: 15:02 snw 03/11 14:49 Order name: EKG - Nurse/Tech; Complete Time: 15:02 snw 03/11 14:49 Order name: IV Saline Lock; Complete Time: 15:05 snw 03/11 14:49 Order name: Labs collected and sent; Complete Time: 15:12 snw 03/11 14:49 Order name: O2 Per Protocol; Complete Time: 15:05 snw 03/11 14:49 Order name: O2 Sat Monitoring; Complete Time: 15:05 snw 03/11 14:49 Order name: Stroke Swallow Screen; Complete Time: 15:05 snw EC:02 Rate is 87 beats/min. Rhythm is regular. QRS [place] is Normal. DE interval is normal. QRS snw interval is normal. QT interval is normal. No Q waves. T waves are Normal. No ST changes noted. Clinical impression: Normal ECG. Administered Medications: 15:16 Drug: foLIC Acid 1 mg Route: IVPB; Site: right antecubital; tw2 15:17 Follow up: Response: No adverse reaction; IV Status: Completed infusion; IV Intake: tw2 0.2ml Point of Care Testing: Blood Glucose: 15:02 Blood Glucose: 142 mg/dL; ld1 Ranges: Critical Glucose Levels:Adult <50 mg/dl or >400 mg/dl <40 mg/dl or >180 mg/dl Disposition: 18:52 Co-signature as Attending Physician, Dion Carbone DO I agree with the assessment and ms3 plan of care. Disposition Summary: 03/11/22 15:50 Hospitalization Ordered Hospitalization Status: Inpatient Admission snw Provider: Willard Lowry Location: Telemetry/MedSurg (Inpatient) snw Condition: Stable snw Problem: new snw Symptoms: are unchanged snw Bed/Room Type: Standard snw Room Assignment: 411(03/11/22 18:40) dw Diagnosis - Other cerebral infarction snw Forms: - Medication Reconciliation Form snw - SBAR form snw NIH Stroke Scale - NIH Stroke Score Date: 03/11/2022 Time: 14:44 Total Score = 2 1a. Level of Consciousness (LOC) - 0(Alert) 1b. Level of Consciousness (LOC) (Month \T\ Age) - 0(Both) 1c. LOC Commands (Open \T\ Closes Eyes/Press Worker Helper) - 0(Both) 2. Best Gaze (Lateral Gaze Paresis) - 0(Normal) 3. Visual Field Loss - 0(No visual loss) 4. Facial Palsy - 2(Partial paralysis) 5a. Left Arm: Motor (10-second hold) - 0(No drift) 5b. Right Arm: Motor (10-second hold) - 0(No drift) 6a. Left Leg: Motor (5-second hold - always test supine) - 0(No drift) 6b. Right Leg: Motor (5-second hold - always test supine) - 0(No drift) 7. Limb Ataxia (finger/nose \T\ heel/g[place] - test with eyes open) - 0(Absent) 8. Sensory Loss (pinprick arms/legs/face) - 0(Normal) 9. Best Language: Aphasia (description/naming/reading) - 0(No aphasia) 10. Dysarthria (speech clarity - read or repeat words) - 0(Normal) 11. Extinction and Inattention (visual/tactile/auditory/spatial/personal) - 0(No abnormality) Initials: NIH Stroke Scale - NIH Stroke Score Date: 03/11/2022 Time: 14:56 Total Score = 3 1a. Level of Consciousness (LOC) - 0(Alert) 1b. Level of Consciousness (LOC) (Month \T\ Age) - 0(Both) 1c. LOC Commands (Open \T\ Closes Eyes/Press Worker Helper) - 0(Both) 2. Best Gaze (Lateral Gaze Paresis) - 0(Normal) 3. Visual Field Loss - 0(No visual loss) 4. Facial Palsy - 2(Partial paralysis) 5a. Left Arm: Motor (10-second hold) - 0(No drift) 5b. Right Arm: Motor (10-second hold) - 0(No drift) 6a. Left Leg: Motor (5-second hold - always test supine) - 0(No drift) 6b. Right Leg: Motor (5-second hold - always test supine) - 0(No drift) 7. Limb Ataxia (finger/nose \T\ heel/g[place] - test with eyes open) - 0(Absent) 8. Sensory Loss (pinprick arms/legs/face) - 0(Normal) 9. Best Language: Aphasia (description/naming/reading) - 0(No aphasia) 10. Dysarthria (speech clarity - read or repeat words) - 1(Mild to Moderate) 11. Extinction and Inattention (visual/tactile/auditory/spatial/personal) - 0(No abnormality) Initials: [facility] NIH Stroke Scale - NIH Stroke Score Date: 03/11/2022 Time: 19:15 Total Score = 2 1a. Level of Consciousness (LOC) - 0(Alert) 1b. Level of Consciousness (LOC) (Month \T\ Age) - 0(Both) 1c. LOC Commands (Open \T\ Closes Eyes/Press Worker Helper) - 0(Both) 2. Best Gaze (Lateral Gaze Paresis) - 0(Normal) 3. Visual Field Loss - 0(No visual loss) 4. Facial Palsy - 1(Minor Paralysis) 5a. Left Arm: Motor (10-second hold) - 0(No drift) 5b. Right Arm: Motor (10-second hold) - 0(No drift) 6a. Left Leg: Motor (5-second hold - always test supine) - 0(No drift) 6b. Right Leg: Motor (5-second hold - always test supine) - 0(No drift) 7. Limb Ataxia (finger/nose \T\ heel/g[place] - test with eyes open) - 0(Absent) 8. Sensory Loss (pinprick arms/legs/face) - 0(Normal) 9. Best Language: Aphasia (description/naming/reading) - 0(No aphasia) 10. Dysarthria (speech clarity - read or repeat words) - 1(Mild to Moderate) 11. Extinction and Inattention (visual/tactile/auditory/spatial/personal) - 0(No abnormality) Initials: jb4 Signatures: Dispatcher [employer] EDRadha Stein RN RN dw Rosa Flowers, FINISHED CLOTH EXAMINER-C FINISHED CLOTH EXAMINER-Csnw Pamela Coleman RN RN ss Samantha Alcantara RN RN tw2 Dion Carbone DO DO ms3 Corrections: (The following items were deleted from the chart) 18:40 15:50 snw dw
--- NOTE | 2022-03-11 15:59 | RAD REPORT ---
EXAM DESCRIPTION: CTHead angio03/11/2022 3:43 pm CLINICAL HISTORY: Facial droop COMPARISON: None TECHNIQUE: CT angiogram of the head was obtained. 3D MIPS reconstruction performed. All CT scans are performed using dose optimization technique as appropriate and may include automated exposure control or mA/KV adjustment according to patient size. FINDINGS: The basilar, internal carotid, anterior cerebral, middle cerebral and posterior cerebral a rteries are normal caliber. An aneurysm is not seen. A significant stenosis is not noted. IMPRESSION: No acute abnormality is displayed
[2022-03-11 16:01] LABS: White Blood Cell Scan OK (OK)
[2022-03-11 16:02] LABS: Blood Morphology Comment NOT SEEN (NOT SEEN); Platelet Estimate DECR
[2022-03-11 16:38] LABS: SARS-CoV-2 Antigen Rapid Res Negative (Negative)
--- NOTE | 2022-03-11 18:00 | P.HP ---
Certification for Inpatient Patient admitted to: Observation With expected LOS: <2 Midnights Practitioner: I am a practitioner with admitting privileges, knowledge of patient current condition, hospital course, and medical plan of care. Services: Services provided to patient in accordance with Admission requirements found in Title 42 Section 412.3 of the Code of Federal Regulations Patient History Date of Service: 03/11/22 Reason for admission: Left facial weakness History of Present Illness: 61-year-old gentleman with a history of hypertension, hyperlipidemia and diabetes presented to the emergency department due to left facial weakness. Patient stated he went to work this morning and around 7 AM his boss noted he has left facial weakness and slurred speech. He alerted him and patient presented to the ED for evaluation this afternoon. Patient history of chronic intermittent dizziness. He denied any headache. He was hospitalized in May 2021 for dizziness and ataxia. Patient refused to do an MRI because he was claustrophobic and and also did not want sedation. CT head done today does not show any acute disease, CTA head shows no significant vascular occlusion. Carotid Doppler unremarkable. Patient noted to have left facial droop, speech is still slurred. No tPA given because patient was out of the window period. He is hospitalized for further work-up for stroke. Allergies No Known Drug Allergies Allergy (Verified 05/29/21 14:50) Unknown Home Medications: Losartan/Hydrochlorothiazide [Losartan-Hctz 50-12.5 mg Tab] 1 tab PO DAILY 05/28/21 Omeprazole [Prilosec] 40 mg PO DAILY 05/28/21 Aspirin [Aspirin EC 81 MG] 81 mg PO DAILY 30 Days #30 tablet. 05/29/21 Meclizine HCl [Antivert*] 12.5 mg PO Q6H PRN #30 tab 05/29/21 - Past Medical/Surgical History -: Hypertension -: Hyperlipidemia -: Diabetes type 2diet controlled -: None Psychosocial/ Personal History: Patient is employed working on [employer], lives at home with his siblings - Family History Mother -: Diabetes, Cancer Brother -: Heart disease, Stroke Sister -: Heart disease, Stroke - Social History Alcohol use: No CD- Drugs: No Caffeine use: Yes Review of Systems Other: Except as documented, all other systems reviewed and negative. Physical Examination - Physical Exam General: Alert, In no apparent distress, Oriented x3 HEENT: Mucous membr. moist/pink Neck: Supple, JVD not distended Respiratory: Clear to auscultation bilaterally, Normal air movement Cardiovascular: No edema, Regular rate/rhythm, Normal S1 S2, No murmurs Capillary refill: <2 Seconds Gastrointestinal: Normal bowel sounds, Soft and benign, Non-distended, No tenderness Musculoskeletal: No swelling, No tenderness Integumentary: No rashes, No cyanosis Neurological: Other (Dysarthria, left facial droop, mild left-sided weakness) Lymphatics: No axilla or inguinal lymphadenopathy - Studies Laboratory Data (last 24 hrs) 03/11/22 14:59: PT 11.6, INR 1.05, APTT 37.6 H 03/11/22 14:59: WBC 5.80, Hgb 14.5, Hct 42.7, Plt Count 65 L 03/11/22 14:59: Sodium 139, Potassium 4.2, BUN 27 H, Creatinine 1.49 H, Glucose 146 H Assessment and Plan - Problems (Diagnosis) (1) Acute CVA (cerebrovascular accident) Current Visit: Yes Status: Acute (2) Diabetes mellitus type 2 in obese Current Visit: Yes Status: Acute (3) Hypertension Current Visit: Yes Status: Acute (4) Hyperlipidemia Current Visit: Yes Status: Acute - Plan Place patient under observation. Start aspirin and Plavix Lipitor and folic acid. Obtain MRI stroke protocol. Permissive hypertension Obtain echocardiogram Neurology consult PT, Occupational Therapy, and speech consult. Swallow evaluation. Check lipid profile. Insulin sliding scale for glucose management. Check hemoglobin A1c. - Advance Directives Does patient have a Living Will: No Does patient have a Durable POA for Healthcare: No
[2022-03-11] MEDS ORDERED: ONDANSETRON 4 MG/2 ML VIAL IV PRN (19:46)
[2022-03-11] MEDS ORDERED: ACETAMINOPHEN 500 MG TAB PO PRN (19:46)
[2022-03-11] MEDS: INSULIN -REGULAR HUMAN 50 UNIT/0.5 ML ML SQ SCH (21:00)
[2022-03-11] MEDS ORDERED: ATORVASTATIN 20 MG TAB PO SCH (21:00)
[2022-03-11] MEDS: NA CHLORIDE 0.9% 1,000 ML IV SCH (21:31)
[2022-03-11 21:38] VITALS: BMI 38.7
[2022-03-12] MEDS: HEPARIN 5000 UNIT/ML 1 ML VIAL SQ SCH ×2 (01:00→09:00)
[2022-03-12 04:22] LABS: Hematocrit 40.9 % (39.6-49.0); Lymphocytes % 23.9 % (15.3-44.8); MCV 83.8 fL (80-100); MPV 11.4 fL (7.6-11.3); RBC Red Blood Cell Count 4.89 M/uL (4.33-5.43)
[2022-03-12 04:49] LABS: Magnesium 2.3 mg/dL (1.8-2.4); Phosphorus 3.4 mg/dL (2.5-4.9); Potassium 3.8 mmol/L (3.5-5.1); T4,Total 7.1 ug/dL (4.5-12.1); Thyroid Stimulating Hormone 1.9 uIU/mL (0.360-3.740)
[2022-03-12] MEDS ORDERED: KCL 20 MEQ/100 mL IVPB 20 MEQ/100 ML BAG IV SCH (07:00)
[2022-03-12] MEDS: INSULIN -REGULAR HUMAN 50 UNIT/0.5 ML ML SQ SCH ×3 (07:30→16:30)
[2022-03-12] MEDS ORDERED: LORazepam 2 MG/ML VIAL IV ONE (08:54)
[2022-03-12] MEDS: ASPIRIN EC 81 MG TAB PO SCH ×2 (08:58→09:50)
[2022-03-12] MEDS: FOLIC ACID 1 MG TABLET PO SCH ×2 (08:58→09:49)
[2022-03-12] MEDS ORDERED: CLOPIDOGREL 75 MG TABLET PO SCH (09:00)
[2022-03-12] MEDS ORDERED: ENOXAPARIN 40 MG/0.4 ML SQ SCH (09:00)
[2022-03-12] MEDS: NA CHLORIDE 0.9% 1,000 ML IV SCH ×2 (09:06→11:49)
--- NOTE | 2022-03-12 11:58 | RAD REPORT ---
EXAM DESCRIPTION: MRI - Brain Wo Cont - 03/12/2022 11:37 am CLINICAL HISTORY: Acute CVA COMPARISON: Head CT March 11, 2022 TECHNIQUE: Axial, sagittal, and coronal magnetic resonance images of the brain were obtained. FINDINGS: Some of the images are degraded by patient motion artifact. Mild signal within periventricular, deep and subcortical white matter probably ischemic changes seco ndary to small vessel disease Diffusion-weighted/ADC mapping demonstrates areas of increased signal within the left deep white micheline er left frontal lobe which having the appearance of remote infarction. There is no evidence of an acu te infarct. The ventricles are normal caliber. An extra-axial fluid collection is not noted. Fluid within the sinuses/mastoids is not seen IMPRESSION: No acute intracranial abnormality noted
--- NOTE | 2022-03-12 12:08 | RAD REPORT ---
EXAM DESCRIPTION: MRI - MRA Head Wo Cont - 03/12/2022 11:37 am CLINICAL HISTORY: Acute CVA COMPARISON: None. TECHNIQUE: Magnetic resonance angiogram was performed. 3D MIPS reconstruction performed FINDINGS: Areas of narrowing involving branches of the left middle cerebral artery. The remainder of the anterior cerebral, middle cerebral, posterior cerebral, distal internal carotid and basilar arteries do not demonstrate a significant stenosis. An aneurysm is not displayed. IMPRESSION: Areas of narrowing involving branches of the left middle cerebral artery presumably synchronizer roseann.
--- NOTE | 2022-03-12 13:23 | P.DS ---
Admission Date: 03/11/22 Discharge Date: 03/12/22 Disposition: ROUTINE DISCHARGE Discharge Condition: FAIR Reason for Admission: Left facial weakness - Problems (1) Acute CVA (cerebrovascular accident) Current Visit: Yes Status: Acute (2) Diabetes mellitus type 2 in obese Current Visit: Yes Status: Acute (3) Hypertension Current Visit: Yes Status: Acute (4) Hyperlipidemia Current Visit: Yes Status: Acute Brief History of Present Illness: 61-year-old gentleman with a history of hypertension, hyperlipidemia and diabetes presented to the emergency department due to left facial weakness. Patient stated he went to work this morning and around 7 AM his boss noted he has left facial weakness and slurred speech. He alerted him and patient pres ented to the ED for evaluation this afternoon. Patient history of chronic intermittent dizziness. He denied any headache. He was hospitalized in May 2021 for dizziness and ataxia. Patient refused to do an MRI because he was claustrophobic and and also did not want sedation. CT head done today does not show any acute disease, CTA head shows no significant vascular occlusion. Carotid Doppler unremarkable. Patient noted to have left facial droop, speech is still slurred. No TNK given because patient was out of the window period. He was hospitalized for further work-up for stroke. Hospital Course: Patient placed under observation on the medical floor and started on aspirin, Plavix, statin per stroke protocol. MRI of the brain done did not show any acute CVA. It did demonstrate remote CVA in the left frontal lobe. Patient's symptoms improved. He was evaluated by speech and patient tolerated solid diet, no dysphagia. He still has mild facial droop. Noted patient has thrombocytopenia with platelet count in the 50s. He was not given heparin subcu ordered for DVT prophylaxis due to increased risk of bleeding. He also did not receive Plavix, only aspirin was given. Patient was ambulatory without assistance and no further need for PT. LDL 73 patient placed on high-dose statins. No arrhythmia. No acute CVA. Patient is deemed clinically stable for discharge. Vital Signs/Physical Exam: Temp Pulse Resp BP Pulse Ox 97.4 F 78 18 138/80 93 03/12/22 12:00 03/12/22 12:00 03/12/22 12:00 03/12/22 12:00 03/12/22 12:00 General: Alert, In no apparent distress, Oriented x3, Obese HEENT: PERRLA, Mucous membr. moist/pink, EOMI Neck: JVD not distended Respiratory: Clear to auscultation bilaterally, Normal air movement Cardiovascular: No edema, Regular rate/rhythm, Normal S1 S2 Gastrointestinal: Soft and benign, Non-distended Musculoskeletal: No swelling Integumentary: No rashes Neurological: Normal strength at 5/5 x4 extr Laboratory Data at Discharge: WBC 4.10 K/uL (4.3-10.9) L D 03/12/22 03:54 Hgb 13.9 g/dL (13.6-17.9) 03/12/22 03:54 Hct 40.9 % (39.6-49.0) 03/12/22 03:54 Plt Count 57 K/uL (152-406) L 03/12/22 03:54 PT 11.6 SECONDS (9.5-12.5) 03/11/22 14:59 INR 1.05 03/11/22 14:59 APTT 37.6 SECONDS (24.3-36.9) H 03/11/22 14:59 Sodium 139 mmol/L (136-145) 03/12/22 03:54 Potassium 3.8 mmol/L (3.5-5.1) 03/12/22 03:54 BUN 25 mg/dL (7-18) H 03/12/22 03:54 Creatinine 1.05 mg/dL (0.55-1.3) 03/12/22 03:54 Glucose 118 mg/dL (74-106) H 03/12/22 03:54 Phosphorus 3.4 mg/dL (2.5-4.9) 03/12/22 03:54 Magnesium 2.3 mg/dL (1.8-2.4) 03/12/22 03:54 Triglycerides 124 mg/dL (<150) 03/12/22 03:54 Cholesterol 130 mg/dL (<200) 03/12/22 03:54 HDL Cholesterol 33 mg/dL (40-60) L 03/12/22 03:54 Cholesterol/HDL Ratio 3.94 03/12/22 03:54 Home Medications: Losartan/Hydrochlorothiazide [Losartan-Hctz 50-12.5 mg Tab] 1 tab PO DAILY 05/28/21 Omeprazole [Prilosec] 40 mg PO DAILY 05/28/21 Aspirin [Aspirin EC 81 MG] 81 mg PO DAILY 30 Days #30 tablet. 05/29/21 Meclizine HCl [Antivert*] 12.5 mg PO Q6H PRN #30 tab 05/29/21 Atorvastatin Calcium [Lipitor] 40 mg PO BEDTIME #30 tab 03/12/22 Folic Acid 1 mg PO DAILY #30 tab 03/12/22 Glimepiride 1 mg PO BID 03/12/22 New Medications: Folic Acid 1 mg PO DAILY #30 tab Atorvastatin Calcium [Lipitor] 40 mg PO BEDTIME #30 tab Physician Discharge Instructions: PLEASE COMPLETE GOLD SHEET FOR STROKE PLEASE COMPLETE PATIENT SATISFACTION FOR STROKE Diet: ADA Activity: Ad blank Followup: NONE,NONE [Primary Care Provider] - 1-2 Weeks
--- NOTE | 2022-03-12 14:35 | ECHO ---
HEIGHT: 5 ft 8 in WEIGHT: 254 lb 8 oz DATE OF STUDY: 03/12/[address]: Willard Lowry MD 2-DIMENSIONAL: YES M.MODE: YES DOPPLER: YES COLOR FLOW: YES TDS: PORTABLE: YES DEFINITY: BUBBLE STUDY: DIAGNOSIS: STROKE CARDIAC HISTORY: CATHERIZATION: SURGERY: PROSTHETIC VALVE: PACEMAKER: MEASUREMENTS (cm) DIASTOLIC (NORMALS) SYSTOLIC (NORMALS) IVSd 1.1 (0.6-1.2) LA Diam 4.1 (1.9-4.0) LVEF 56% LVIDd 5.0 (3.5-5.7) LVIDs 3.5 (2.0-3.5) %FS 29% LVPWd 1.2 (0.6-1.2) Ao Diam 3.2 (2.0-3.7) 2 DIMENSIONAL ASSESSMENT: RIGHT ATRIUM: NORMAL LEFT ATRIUM: NORMAL RIGHT VENTRICLE: NORMAL LEFT VENTRICLE: NORMAL TRICUSPID VALVE: MILD TRICUSPID REGURGITATION MITRAL VALVE: NORMAL PULMONIC VALVE: NORMAL AORTIC VALVE: NORAML PERICARDIAL EFFUSION: NONE AORTIC ROOT: NORMAL LEFT VENTRICULAR WALL MOTION: NORMAL DOPPLER/COLOR FLOW: MILD TRICUSPID REGURGITATION COMMENTS: NORMAL LEFT VENTRICULAR EJECTION FRACTION 55-60%. NORMAL WALL MOTION. MILD TRICUSPID REGURGITATION. BUBBLE STUDY IS POSITIVE, LIKELY REPRESENTATION OF PATENT FORMANEN OVALE. TECHNOLOGIST: THOMAS ROBERTS
[2022-03-12 15:34] VITALS: BP 132/83; TEMP 97.6
[2022-03-12 16:54] VITALS: O2SAT 94
--- NOTE | 2022-03-13 15:23 | EKG ---
Test Date: 2022-03-11 Test Time: 15:03:20 Dress Designer: CHERELLE MEASUREMENT RESULTS: Intervals: Rate: 87 MT: 158 QRSD: 96 QT: 376 QTc: 452 [place]: P: 11 MT: 158 QRS: -22 T: 9 INTERPRETIVE STATEMENTS: Normal sinus rhythm Normal ECG Compared to ECG 05/28/2021 19:31:51 No significant changes Electronically Signed On 03-13-22 15:20:16 CDT by Isiah Barraza
== END 2022-03-12 18:30 | disposition home or self-care (01) ==
LOC: ER 14:24 → ERHOLD 17:44 → 4TH 19:44
PROVIDERS: ADMIT Internal Medicine; ATTEND Internal Medicine
DX: R29.810 Facial weakness (principal); R47.81 Slurred speech; I10 Essential (primary) hypertension; E11.9 Type 2 diabetes mellitus without complications; R42 Dizziness and giddiness; D69.6 Thrombocytopenia, unspecified; E78.5 Hyperlipidemia, unspecified; K21.9 Gastro-esophageal reflux disease without esophagitis; F40.240 Claustrophobia; F17.210 Nicotine dependence, cigarettes, uncomplicated; E66.9 Obesity, unspecified; Z68.38 Body mass index [BMI] 38.0-38.9, adult; Z79.82 Long term (current) use of aspirin; Z79.899 Other long term (current) drug therapy; Z28.310 Unvaccinated for COVID-19; Z20.822 Contact with and (suspected) exposure to COVID-19; Z82.3 Family history of stroke; Z82.49 Family history of ischemic heart disease and other diseases of the circulatory system; Z83.3 Family history of diabetes mellitus; Z80.9 Family history of malignant neoplasm, unspecified
CPT/HCPCS: 36415; 70450; 70496; 70544; 70551; 71045; 80048; 80061; 82947; 83036; 83735; 84100; 84436; 84443; 85025; 85610; 85652; 85730; 87811; 92610; 93005; 93306; 93880; 94760; 96374; 97161; 99285; G0378; J3480; J7030; Q9967

== ENCOUNTER 2024-11-04 21:10 | Emergency (ER) | payer OTHER ==
--- OUTSIDE RECORDS SUMMARY | 2024-11-04 21:15 | XMS REPORT | Continuity of Care Document ---
Author Name Unknown Address [address] [facility] [address] [place] [address] [facility] Address [address] [facility] [address] [place] [address] Care Team Providers Care Drug Discovery Informatics Specialist Name Role Phone Myesha Welsh Primary Care Physician [phone] WILLARD TOSCANO Attending Clinician Ita CORNELIA Galo Attending Clinician Unavailable Willard Toscano MD Attending Clinician Becki BOWIE, Edel Page Attending Clinician Unavail able MAGDALENA WADDELL Attending Clinician Unavailable TRISTIN GILLIS Attending Clinician Unavailable TRISTIN GILLIS Attending Clinician Unavailable Tristin Gillis MD Attending Clinician [phone] DEBBIE MISHRA MEDICAL Attending Serenity pettit Unavailable LAB90 Attending Clinician Unavailable KIA WILLSON Attending Clinician Unavailable PB REBOLLEDO Attending Clinician Unavailable Farooq Garcia Attending Clinician [phone] FAROOQ GIPSON Attending Clinician Unavailable DAVID GALARZA Attending Clinician UnavailWILLARD Garcia Admitting Clinician Ita Willard Ruiz MD Admitting Clinician FAROOQ GIPSON Admitting Clinician Unavailable Payers Payer Name Policy Type Policy Number Effective Date Expirati on Date Source [employer] MP [employer] 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 [id number] 2024 00:00:00 [employer] W/ DEBBIE LUNA OON [id number] 2024 00:00:00 Problems Condition Name Condition Details Condition Category Status Onset Date Resolution Date Last Treatment Date Treating Clinician Comments Source Obesity (BMI 30-39.9) Obesity (BMI 30-39.9) Disease Active 2-27 00:00: 00 [facility] Gross hematuria Gross hematuria Disease Active 2-26 00:00: 00 [facility] Hematuria Hematuria Disease Active 2-25 00:00: 00 [facility] Benign prostatic hyperplasi a with nocturia Benign prostatic hyperplasi a with nocturia Disease Active 09-10 00:00: 00 [facility] 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 openia due to drugs Disease Active 2023-07 0 00:00: 00 [facility] Primary hypertensi on Primary hypertensi on Disease Active 02-07 00:00: 00 [facility] History of CVA (cerebrova scular accident) History of CVA (cerebrova scular accident) Disease Active 02-07 00:00: 00 [facility] DM type 2 with diabetic mixed hyperlipid emia (multi HCC) DM type 2 with diabetic mixed hyperlipid emia (multi HCC) Disease Active 02-07 00:00: 00 [facility] Hypertensi ve disorder, systemic arterial (disorder) Hypertensi ve disorder, systemic arterial (disorder) Active Problem 10/01/2022 [facility] [place] Problem Active 2022-10-01 22:55:45 Shira Pereira Neck pain (finding) Neck pain (finding) Active Problem 10/01/2022 [facility] [place] Problem Active 2022-10-01 22:55:45 Shira Pereira Diabetes mellitus type 2 (disorder) Diabetes mellitus type 2 (disorder) Active Problem 10/01/2022 [facility] [place] Problem Active 2022-10-01 22:55:45 Shira Pereira Cerebrovas cular accident (disorder) Cerebrovas cular accident (disorder) Active Problem 10/01/2022 [facility] [place] Problem Active 2022-10-01 22:55:45 Shira Pereira Headache (finding) Headache (finding) Active Problem 10/01/2022 [facility] [place] Problem Active 2022-10-01 22:55:45 Shira Pereira Hyperlipid emia (disorder) Hyperlipid emia (disorder) [facility] [place] Problem Active 2022-10-01 22:55:45 Shira Pereira Allergies, Adverse Reactions, Alerts Allergy Name Allergy Type Status Severity Reaction(s) Onset Date Inactive Date Treating Clinician Comments Source NO KNOWN ALLERGIE S Drug Class Active [facility] Social History Social Habit Start Date Stop Date Quantity Comments Source History of tobacco use Cigarette Smoker [facility] Alcoholic beverage intake 2024-10-02 00:00:00 2024-10-02 00:00:00 Ex-drinker (finding) [facility] History of Social function 2024-10-02 00:00:00 2024-10-02 00:00:00 [facility] Tobacco use and exposure 2024-09-11 00:00:00 2024-09-11 00:00:00 Smokeless tobacco non-user [facility] Tobacco Comment 2024-09-11 00:00:00 2024-09-11 00:00:00 1 pack lasts 2 weeks [facility] Cigarettes smoked current (pack per day) - Reported 2024-09-11 00:00:00 2024-09-11 00:00:00 [facility] Cigarette pack-years 2024-09-11 00:00:00 2024-09-11 00:00:00 [facility] Sex 2023-07-13 23:38:47 2023-07-13 23:38:47 Male (finding) Debbie Luna - External Exposure to SARS-CoV-2 (event) 2022-10-31 00:00:00 2022-11-10 16:23:00 Not sure [facility] Alcohol intake 2019-07-06 00:00:00 2019-07-06 00:00:00 Ex-drinker (finding) [facility] Alcohol Comment 2019-07-06 00:00:00 2019-07-06 00:00:00 quit 2011, previous weekend only [facility] Sex assigned at 1960 00:00:00 1960 00:00:00 Debbie Luna - [place] Smoking Status Start Date Stop Date Source Ex-smoker 2024-09-11 00:00:00 2024-09-11 00[facility]00[facility] tobacco smoker 2019-07-06 00:00:00 [facility] Medications Ordered Medication Name Filled Medication Name Start Date Stop Date Current Medication? Ordering Clinician Indication Dosage Frequency Signature (SIG) Comments Components Source amoxicillin -pot clavulanate 875-125 mg per tablet 10-11 00:00: 00 10-17 04:59 :00 Yes 1{tbl} Take 1 tablet by mouth in the morning and 1 tablet in the evening. Do all this for 5 days. [facility] cyclobenzap rine (FLEXERIL) tablet 5 mg 09-15 14:00: 00 09-15 17:44 :35 No 5mg 5 mg, Oral, TID, First dose on 09/15/24 at 0800, Until Discontinu ed, Routine [facility] morpHINE injection 2 mg 09-15 02:48: 16 09-15 14:57 :45 No 2mg 2 mg, Slow IV Push, Q4HPRN, Starting on Tue09/14/24 at 2048, Until 09/15/24 at 0857, Routine, Pain (scale 7-10) [facility] Ibuprofen 200 mg capsule 09-15 00:00: 00 Yes [id number] 01 400mg Take 2 capsules by mouth every 6 (six) hours as needed for Pain (scale 1-3) or Pain (scale 4-6) for up to 20 doses. [facility] acetaminoph en (TYLENOL) 325 mg tablet 09-15 00:00: 00 Yes [id number] 650mg Take 2 tablets by mouth every 6 (six) hours as needed for Pain (scale 1-3) or Pain (scale 4-6) for up to 20 doses. [facility] cyclobenzap rine 5 mg tablet 09-15 00:00: 00 09-23 05:59 :00 Yes [id number] 5mg Take 1 tablet by mouth in the morning and 1 tablet at noon and 1 tablet in the evening. Do all this for 7 days. [facility] oxybutynin (DITROPAN XL) 10 mg 24 hr tablet 09-15 00:00: 00 09-15 00:00 :00 No [id number] 10mg Take 1 tablet by mouth in the morning for 5 days. [facility] bupivacaine (preserv free) (SENSORCAIN E MPF) 0.25 % (2.5 mg/mL) injection 09-14 14:16: 00 09-14 18:21 :22 No PRN, Starting on Tue09/14/24 at 0816, Until Tue09/14/24 at 1221, Routine, Intra-op [facility] cefTRIAXone (ROCEPHIN) 2,000 mg in water for injection, sterile 20 mL IV Push 09-13 13:16: 00 09-15 14:37 :00 No 2000mg 2,000 mg, Intravenou s, Q24H ABX, 3 doses, First dose on Heidy 09/13/24 at 0730, Last dose on 09/15/24 at 0730, 20 mL, Reason for Anti-Infec tive: Surgical Prophylaxi s, Surgical Prophylaxi s: Genitourin kanchan, Duration of therapy: within 24 hours of surgery [facility] bisacodyL (DULCOLAX) suppository 10 mg 09-12 16:16: 13 09-15 17:44 :35 No 10mg 10 mg, Rectal, QDAILYPRN, Starting on Tue09/12/24 at 1016, Until 09/15/24 at 1144, Routine, Constipati on [facility] finasteride (PROSCAR) tablet 5 mg 09-12 15:00: 00 09-14 17:02 :59 No 5mg 5 mg, Oral, DAILY, First dose on Tue09/12/24 at 0900, Until Discontinu ed, Routine [facility] tamsulosin (FLOMAX) capsule 0.4 mg 09-12 03:00: 00 09-14 17:02 :59 No .4mg 0.4 mg, Oral, QHS, First dose on Tue09/11/24 at 2100, Until Discontinu ed, Routine [facility] hydroCHLORO thiazide (ESIDRIX) capsule 12.5 mg 09-11 15:00: 00 09-15 17:44 :35 No 12.5mg 12.5 mg, Oral, DAILY, First dose on Tue09/11/24 at 0900, Until Discontinu ed, [facility] pantopraz[facility] (PROTONIX[facility] EC tablet 20 mg 09-11 15:00: 00 09-15 17:44 :35 No 20mg 20 mg, Oral, DAILY, First dose on Tue09/11/24 at 0900, Until Discontinu ed, Routine [facility] polyethylen e glycol 3350 powder 17 g 09-11 15:00: 00 09-15 17:44 :35 No 17g 17 g, Oral, DAILY, First dose on Tue09/11/24 at 0900, Until Discontinu ed, Routine [facility] sennosides (SENOKOT) tablet 8.6 mg 09-11 15:00: 00 09-15 17:44 :35 No 8.6mg 8.6 mg, Oral, DAILY, First dose on Tue09/11/24 at 0900, Until Discontinu ed, Routine [facility] sodium chloride 0.9 % irrigation solution 3,000 mL 09-11 11:47: 25 09-15 17:44 :35 No 3000mL 3,000 mL, Irrigation , PRN, Starting on Tue09/11/24 at 0547, Until 09/15/24 at 1144, 3,000 mL [facility] morpHINE injection 2 mg 09-11 11:15: 00 09-11 08:14 :00 No 2mg 2 mg, Slow IV Push, ONCE, 1 dose, On Tue09/11/24 at 0515, Routine [facility] cefTRIAXone (ROCEPHIN) 1,000 mg in water for injection, sterile 10 mL IV Push 09-11 10:30: 00 09-11 10:26 :00 No 1000mg 1,000 mg, Intravenou s, Once, 1 dose, On Tue09/11/24 at 0430, 10 mL, Reason for Anti-Infec tive: Surgical Prophylaxi s, Surgical Prophylaxi s: Genitourin kanchan, Duration of therapy: within 24 hours of surgery [facility] acetaminoph en (TYLENOL) tablet 650 mg 09-11 10:06: 53 09-15 17:44 :35 No 650mg 650 mg, Oral, Q6HPRN, Starting on Tue09/11/24 at 0406, Until 09/15/24 at 1144, Routine, Pain (scale 1-3), Pain (scale 4-6) [facility] lidocaine 5 % ointment 09-11 10:06: 29 09-15 17:44 :35 No [facility] ondansetron (ZOFRAN (PF)) injection 4 mg 09-11 10:00: 42 09-15 17:44 :35 No 4mg [facility] Berberine Chloride 500 MG oral Capsule 2023-07 14:42: 22 Yes Take by mouth. Debbie page Cranberry 500 MG oral Capsule 2023-07 14:42: 22 Yes Take by mouth. [facility]bbie page Aspirin (Aspirin 81) 81 MG oral Chewable Tablet 2023-07 14:42: 22 Yes [id number] 81mg QD Take 1 tablet (81 mg total) by mouth daily. [facility]bbie page Albuterol HFA 108 (90 Base) MCG/ACT IN AERS 2023-07 14:42: 22 Yes 2{puff} Q.25D Inhale 2 puffs into the lungs every 6 hours as needed for wheezing. Debbie page Simethicone 125 MG oral Chewable Tablet 2023-07 00:00: 00 Yes [id number] 125mg Q.25D Take 1 tablet (125 mg total) by mouth every 6 hours as needed for flatulence . Debbie page Trulicity 3 MG/0.5ML subcutaneou s Solution Auto-inject or 2023-07 00:00: 00 Yes [id number] 3 3mg Q1W Inject 3 mg into the skin once a week. Debbie page Diclofenac Sodium 75 MG oral Tablet Delayed Response 2023-07 00:00: 00 Yes [id number] 75mg Q.5D Take 1 tablet (75 mg total) by mouth 2 times daily. Debbie page Trulicity 4.5 MG/0.5ML subcutaneou s Solution Auto-inject or 2023-07 00:00: 00 07-02 00:00 :00 No 4.5mg Q1W Inject 4.5 mg into the skin once a week. Debbie page Valsartan-h ydroCHLOROt hiazide 160-12.5 MG oral Tablet 2023-07 00:00: 00 Yes [id number] 1{tbl} QD Take 1 tablet by mouth daily. Debbie page Berberine Chloride 500 MG oral Capsule 2023-07 15:31: 48 Yes Take by mouth. Debbie page Cranberry 500 MG oral Capsule 2023-07 15:31: 48 Yes Take by mouth. Debbie page Aspirin (Aspirin 81) 81 MG oral Chewable Tablet 2023-07 15:31: 48 Yes [id number] 81mg QD Take 1 tablet (81 mg total) by mouth daily. Debbie page Albuterol HFA 108 (90 Base) MCG/ACT IN AERS 2023-07 15:31: 48 Yes 2{puff} Q.25D Inhale 2 puffs into the lungs every 6 hours as needed for wheezing. Debbie page Meclizine HCl 12.5 MG oral Tablet 2023-07 00:00: 00 Yes [id number] 12.5mg Q.[id number] 3D Take 1 tablet (12.5 mg total) by mouth 3 times daily as needed for dizziness. Debbie page Albuterol HFA 108 (90 Base) MCG/ACT IN AERS 2023-07 09:51: 31 Yes 2{puff} Q.25D Inhale 2 puffs into the lungs every 6 hours as needed for wheezing. Debbie page Berberine Chloride 500 MG oral Capsule 2023-07 09:51: 31 Yes Take by mouth. Debbie page Cranberry 500 MG oral Capsule 2023-07 09:51: 31 Yes Take by mouth. Debbie page Aspirin (Aspirin 81) 81 MG oral Chewable Tablet 2023-07 09:51: 31 Yes [id number] 81mg QD Take 1 tablet (81 mg total) by mouth daily. Debbie page Dulaglutide (Trulicity) 4.5 MG/0.5ML subcutaneou s Solution Pen-injecto r 2023-07 00:00: 00 Yes [id number] 3 4.5mg Q1W Inject 4.5 mg into the skin once a week. Debbie page Valsartan 160 MG oral Tablet 2023-07 00:00: 00 Yes [id number] 160mg QD Take 1 tablet (160 mg total) by mouth daily. Debbie page Dulaglutide (Trulicity) 4.5 MG/0.5ML subcutaneou s Solution Pen-injecto r 2023-07 00:00: 00 07-02 00:00 :00 No [id number] 3 4.5mg Q1W Inject 4.5 mg into the skin once a week. Debbie page Dulaglutide (Trulicity) 3 MG/0.5ML subcutaneou s Solution Pen-injecto r 04-11 00:00: 00 04-19 00:00 :00 No [id number] 3 3mg Q1W Inject 3 mg into the skin once a week. Debbie page Berberine Chloride 500 MG oral Capsule 03-15 10:55: 54 Yes Take by mouth. Debbie page Cranberry 500 MG oral Capsule 03-15 10:55: 54 Yes Take by mouth. Debbie page Aspirin (Aspirin 81) 81 MG oral Chewable Tablet 03-15 10:55: 54 Yes [id number] 81mg QD Take 1 tablet (81 mg total) by mouth daily. Debbie pgae Albuterol HFA 108 (90 Base) MCG/ACT IN AERS 03-15 10:55: 54 Yes 2{puff} Q.25D Inhale 2 puffs into the lungs every 6 hours as needed for wheezing. Debbie page Trulicity 3 MG/0.5ML subcutaneou s Solution Pen-injecto r 03-15 00:00: 00 Yes [id number] 3 3mg Q1W Inject 3 mg into the skin once a week. Debbie page Valsartan-h ydroCHLOROt hiazide 160-12.5 MG oral Tablet 03-15 00:00: 00 04-19 00:00 :00 No [id number] 1{tbl} QD Take 1 tablet by mouth daily. Debbie page Trulicity 1.5 MG/0.5ML subcutaneou s Solution Pen-injecto r 03-01 00:00: 00 03-15 00:00 :00 No [id number] 3 1.5mg Q1W INJECT 1.5 MG INTO THE SKIN ONCE A WEEK. Debbie page Valsartan-h ydroCHLOROt hiazide 160-12.5 MG oral Tablet 02-14 00:00: 00 03-15 00:00 :00 No [id number] 1{tbl} Take 1 tablet by mouth every 12 hours. Debbie page Tirzepatide (Mounjaro) 2.5 MG/0.5ML subcutaneou s Solution Pen-injecto r 02-07 14:04: 14 02-07 00:00 :00 No 2.5mg Q1W Inject 0.5 mL (2.5 mg total) into the skin once a week. Debbie page Melatonin 5 MG oral Capsule 02-07 13:46: 30 02-07 00:00 :00 No Take by mouth. Debbie page Berberine Chloride 500 MG oral Capsule 02-07 13:46: 29 Yes Take by mouth. Debbie page Cranberry 500 MG oral Capsule 02-07 13:46: 29 Yes Take by mouth. Debbie page Aspirin (Aspirin 81) 81 MG oral Chewable Tablet 02-07 13:46: 29 Yes [id number] 81mg QD Take 1 tablet (81 mg total) by mouth daily. Debbie page Albuterol HFA 108 (90 Base) MCG/ACT IN AERS 02-07 13:46: 29 Yes 2{puff} Q.25D Inhale 2 puffs into the lungs every 6 hours as needed for wheezing. Debbie page Clopidogrel Bisulfate (PLAVIX) 75 MG oral Tablet 02-07 00:00: 00 Yes [id number] 75mg QD Take 1 tablet (75 mg total) by mouth daily. Debbie paeg Trulicity 1.5 MG/0.5ML subcutaneou s Solution Pen-injecto r 02-07 00:00: 00 Yes [id number] 3 1.5mg Q1W Inject 1.5 mg into the skin once a week. Debbie page Valsartan-h ydroCHLOROt hiazide 160-12.5 MG oral Tablet 7-15 00:00: 00 Yes [id number] 1{tbl} Take 1 tablet by mouth every 12 hours. Debbie page Omeprazole 40 MG oral Delayed Release Capsule 01-05 00:00: 00 Yes TAKE ONE (1) CAPSULE(S) BY MOUTH DAILY 30 MINUTES BEFORE MORNING MEAL. Debbie page Meclizine HCl 12.5 MG oral Tablet 01-03 00:00: 00 05-24 00:00 :00 No TAKE ONE (1) OR TWO (2) TABLET(S) EVERY TWELVE HOURS NEEDED FOR DIZZINESS. Debbie page Rybelsus 3 MG oral Tablet 11-15 00:00: 00 02-07 00:00 :00 No 1{tbl} QD Take 1 tablet by mouth daily. Debbie page Clopidogrel Bisulfate (PLAVIX) 75 MG oral Tablet 11-14 00:00: 00 02-07 00:00 :00 No 75mg QD Take 1 tablet (75 mg total) by mouth daily. Debbie page ketorolac (TORADOL) injection 30 mg 11-10 22:15: 00 11-10 21:17 :00 No 30mg 30 mg, Slow IV Push, ONCE, 1 dose, On Tue11/10/22 at 1715, [facility] dicyclomine (BENTYL) injection 20 mg 11-10 22:00: 00 11-10 21:15 :00 No 20mg 20 mg, Intramuscu lar, ONCE, 1 dose, On Tue11/10/22 at 1700, [facility] famotidine (PEPCID (PF)) injection 20 mg 11-10 21:00: 00 11-10 21:15 :00 No 20mg 20 mg, Slow IV Push, ONCE, 1 dose, On Tue11/10/22 at 1600, [facility] maalox:diph enhydrAMINE :lidocaine 2 % viscous 1:1:1 (FIRST-MOUT HWASH BLM) oral suspension 15 mL 11-10 21:00: 00 11-10 21:15 :00 No 15mL 15 mL, Oral, ONCE, 1 dose, On Tue11/10/22 at 1600, Routine [facility] ondansetron (ZOFRAN (PF)) injection 4 mg 11-10 21:00: 00 11-10 21:15 :00 No 4mg 4 mg, Slow IV Push, ONCE, 1 dose, On Tue11/10/22 at 1600, [facility] methocarbam oL 500 mg tablet 11-10 00:00: 00 09-15 00:00 :00 No [id number] 500mg Take 1 tablet by mouth 4 (four) times daily as needed for Pain (scale 7-10) or Pain (scale 4-6). [facility] Lipitor 20 mg oral tablet 2021-07 16:23: 00 Yes 20 mg = 1 tab, PO, Bedtime, # 30 tab, 3 Refill(s), Pharmacy: [facility] [place], 172.72, cm, 07/01/22 9:57:00 [employer], Height, 116.818, kg, 07/01/22 9:57:00 [employer], Weight Shira Pereira Topamax 25 mg oral tablet 2021-07 20:32: 00 Yes 25 mg = 1 tab, PO, Bedtime, # 30 tab, 3 Refill(s), Pharmacy: [facility] Pharmacy, 172.72, cm, 05/17/22 14:50:00 CDT, Height, 115.625, kg, 05/17/22 14:50:00 CDT, Weight Shira Pereira [place] [facility] Dose Aspirin 81 mg oral delayed release tablet 2021-07 20:27: 00 Yes 81 mg = 1 tab, PO, Daily, 0 Refill(s) Shira Pereira meclizine 12.5 mg oral tablet 2021-07 19:23: 00 Yes TAKE ONE (1) TABLET(S) BY MOUTH EVERY SIX HOURS NEEDED FOR DIZZINESS. Shira Pereira omeprazole 40 mg oral delayed release capsule 2021-07 19:23: 00 Yes 40 mg = 1 cap, PO, Daily, # 30 cap, 0 Refill(s) Shira Pereira losartan 50 mg oral tablet 2021-07 19:23: 00 Yes 50 mg = 1 tab, PO, Daily, # 30 tab, 0 Refill(s) Shira Pereira glimepiride 1 mg oral tablet 2021-07 19:22: 00 Yes 1 mg = 1 tab, PO, Breakfast, # 30 tab, 0 Refill(s) Shira Pereira metFORMIN 500 mg oral tablet 2021-07 19:21: 00 Yes 500 mg = 1 tab, PO, BID-Meals, # 30 tab, 0 Refill(s) Shira Pereira Dose Unknown -16 00:00: 00 No levofloxaci n 500 mg tablet 12-09 00:00: 00 No 1mg metformin ER 500 mg tablet,exte nded release 24 hr 12-09 00:00: 00 No 1mg glimepiride 1 mg tablet 12-09 00:00: 00 No 1mg losartan 50 mg-hydrochl orothiazide 12.5 mg tablet 12-08 00:00: 00 No 1mg meclizine 12.5 mg tablet 12-08 00:00: 00 No 12mg omeprazole 40 mg capsule,del ayed release 12-08 00:00: 00 No 1mg Dose Unknown 12-08 00:00: 00 No Dose Unknown 12-08 00:00: 00 No Dose Unknown 12-08 00:00: 00 No ProAir HFA 90 mcg/actuati on aerosol inhaler 08-04 00:00: 00 No 1mcg/ac tuation losartan 50 mg-hydrochl orothiazide 12.5 mg tablet 08-04 00:00: 00 No 1mg loratadine 10 mg tablet 08-04 00:00: 00 No 1mg amoxicillin 875 mg-potassiu m clavulanate 125 mg tablet 2022-0 1-18 00:00: 00 No 1mg omeprazole 40 mg capsule,del ayed release 0 118 00:00: 00 No 1mg losartan 50 mg-hydrochl orothiazide 12.5 mg tablet 02-10 00:00: 00 No 1mg omeprazole 40 mg capsule,del ayed release 02-10 00:00: 00 No 1mg ProAir HFA 90 mcg/actuati on aerosol inhaler 10-29 00:00: 00 No 1mcg/ac tuation mupirocin 2 % topical ointment - 00:00: 00 No 1% losartan 50 mg-hydrochl orothiazide 12.5 mg tablet 10-29 00:00: 00 No 1mg omeprazole 40 mg capsule,del ayed release 10-29 00:00: 00 No 1mg losartan 50 mg-hydrochl orothiazide 12.5 mg tablet 0 1- 00:00: 00 No 1mg omeprazole 40 mg capsule,del ayed release 1- 00:00: 00 No 1mg losartan 50 mg-hydrochl orothiazide 12.5 mg tablet 2019-07 0- 00:00: 00 No 1mg metformin ER 500 mg tablet,exte nded release 24 hr 2019-07 0- 00:00: 00 No 1mg amoxicillin 875 mg tablet 2019-07 0 00:00: 00 No 1mg omeprazole 40 mg capsule,del ayed release 2019-07 0-07 00:00: 00 No 1mg losartan 50 mg-hydrochl orothiazide 12.5 mg tablet 04-09 00:00: 00 No 1mg gemfibrozil 600 mg tablet 04-09 00:00: 00 No 1mg metformin ER 500 mg tablet,exte nded release 24 hr 04-09 00:00: 00 No 1mg omeprazole 40 mg capsule,del ayed release 9 00:00: 00 No 1mg losartan 50 mg-hydrochl orothiazide 12.5 mg tablet 8- 00:00: 00 No 1mg gemfibrozil 600 mg tablet 8 00:00: 00 No 1mg omeprazole 40 mg capsule,del ayed release 10 00:00: 00 No 1mg losartan 50 mg-hydrochl orothiazide 12.5 mg tablet 01-20 00:00: 00 No 1mg gemfibrozil 600 mg tablet 01-20 00:00: 00 No 1mg metformin ER 500 mg tablet,exte nded release 24 hr 01-20 00:00: 00 No 1mg omeprazole 40 mg capsule,del ayed release 01-20 00:00: 00 No 1mg metformin ER 500 mg tablet,exte nded release 24 hr 11-06 00:00: 00 No 1mg gemfibrozil 600 mg tablet 11-06 00:00: 00 No 1mg losartan 50 mg-hydrochl orothiazide 12.5 mg tablet 11-01 00:00: 00 No 1mg omeprazole 40 mg capsule,del ayed release 11-01 00:00: 00 No 1mg omeprazole 40 mg capsule,del ayed release 09-25 00:00: 00 No 1mg losartan 50 mg-hydrochl orothiazide 12.5 mg tablet 09-25 00:00: 00 No 1mg atorvastati n 10 mg tablet 09-25 00:00: 00 No 1mg Melatonin 5 mg Cap 2018-07 08:56: 26 Yes Take by mouth. [facility] omeprazole 40 mg capsule 2018-07 00:00: 00 Yes TAKE ONE (1) CAPSULE(S) BY MOUTH ONCE A DAY. [facility] losartan 50 mg-hydrochl orothiazide 12.5 mg tablet 2018-07 00:00: 00 No 1mg omeprazole 40 mg capsule,del ayed release 2018-07 00:00: 00 No 1mg cetirizine 10 mg capsule 2018-07 00:00: 00 No 1mg cetirizine 10 mg tablet 2018-07 00:00: 00 Yes TAKE ONE (1) TABLET(S) BY MOUTH ONCE A DAY AT NIGHT. [facility] losartan-hy drochloroth iazide 50-12.5 mg per tablet 2018-07 00:00: 00 Yes TAKE ONE (1) TABLET(S) BY MOUTH ONCE A DAY. [facility] atorvastati n 10 mg tablet 2018-07 00:00: 00 No 1mg atorvastati n 10 mg tablet 2018-07 00:00: 00 Yes 10mg Take 10 mg by mouth at bedtime. [facility] lisinopril 10 mg tablet 01-15 00:00: 00 No 1mg Immunizations Ordered Immunization Name Filled Immunization Name Date Status Comments Source Shingles IM (Shingrix) Unknown Completed Debbie Seybold - External Shingles IM (Shingrix) Unknown Completed Debbie Seybold - External Shingles IM (Shingrix) Unknown Completed Debbie Seybold - External Vital Signs Vital Name Observation Time Observation Value Comments S ource Systolic blood pressure 2024-10-02 15:41:00 118 mm[Hg] [facility] Diastolic blood pressure 2024-10-02 15:41:00 82 mm[Hg] [facility] Heart rate 2024-10-02 15:41:00 82 /min [facility] Body temperature 2024-10-02 15:41:00 36.78 Ileana [facility] Body height 2024-10-02 15:41:00 172.7 cm [facility] Body weight 2024-10-02 15:41:00 100.699 kg [facility] BMI 2024-10-02 15:41:00 33.75 kg/m2 [facility] Oxygen saturation in Arterial blood by Pulse oximetry 2024-10-02 15:41:00 97 /min [facility] Systolic blood pressure 2024-09-15 13:46:00 114 mm[Hg] [facility] Diastolic blood pressure 2024-09-15 13:46:00 73 mm[Hg] [facility] Heart rate 2024-09-15 13:46:00 76 /min [facility] Body temperature 2024-09-15 13:46:00 35.94 Ileana [facility] Respiratory rate 2024-09-15 13:46:00 18 /min [facility] Oxygen saturation in Arterial blood by Pulse oximetry 2024-09-15 13:46:00 95 /min [facility] Body weight 2024-09-11 11:58:00 104.327 kg [facility] BMI 2024-09-11 11:58:00 34.97 kg/m2 [facility] Body height 2024-09-11 11:58:00 172.7 cm [facility] Heart rate 2024-09-14 18:15:00 78 /min [facility] Respiratory rate 2024-09-14 18:15:00 20 /min [facility] [facility] saturation in Arterial blood by Pulse oximetry 2024-09-14 18:15:00 94 /min [facility] Systolic blood pressure 2024-09-14 18:00:00 105 mm[Hg] [facility] Diastolic blood pressure 2024-09-14 18:00:00 69 mm[Hg] [facility] Body temperature 2024-09-14 17:45:00 36 Ileana [facility] Body height 2024-09-11 11:58:00 172.7 cm [facility] Body weight 2024-09-11 11:58:00 104.327 kg [facility] BMI 2024-09-11 11:58:00 34.97 kg/m2 [facility] Systolic blood pressure 2024-09-11 02:18:00 171 mm[Hg] [facility] Diastolic blood pressure 2024-09-11 02:18:00 104 mm[Hg] [facility] Heart rate 2024-09-11 02:18:00 111 /min [facility] Body temperature 2024-09-11 02:18:00 36.89 Ileana [facility] Respiratory rate 2024-09-11 02:18:00 20 /min [facility] Body height 2024-09-11 02:18:00 172.7 cm Univ [facility] Body weight 2024-09-11 02:18:00 102.059 kg Univ [facility] BMI 2024-09-11 02:18:00 34.21 kg/m2 [facility] Oxygen saturation in Arterial blood by Pulse oximetry 2024-09-11 02:18:00 94 /min [facility] Systolic blood pressure 2024-07-02 20:37:00 108 mm[Hg] Debbie Seybo ld - External Diastolic blood pressure 2024-07-02 20:37:00 80 mm[Hg] Debbie Seybo ld - External Heart rate 2024-07-02 20:37:00 92 /min Kelse y Seybold - External Body temperature 2024-07-02 20:37:00 36.39 Ileana Debbie Seybold - External Respiratory rate 2024-07-02 20:37:00 15 /min Debbie Seybold - External Body height 2024-07-02 20:37:00 172.7 cm Meredith ey Seybold - External Body weight 2024-07-02 20:37:00 107.321 kg Meredith ey Seybold - External BMI 2024-07-02 20:37:00 35.97 kg/m2 Meredith ey Seybold - External Oxygen saturation in Arterial blood by Pulse oximetry 2024-07-02 20:37:00 96 /min Debbie Seybo ld - External Systolic blood pressure 2024-05-24 21:30:00 110 mm[Hg] Debbie Seybo ld - External Diastolic blood pressure 2024-05-24 21:30:00 60 mm[Hg] Debbie Seybo ld - External Heart rate 2024-05-24 21:30:00 83 /min Kelse y Seybold - External Body temperature 2024-05-24 21:30:00 36.61 Ileana Debbie Seybold - External Respiratory rate 2024-05-24 21:30:00 20 /min Debbie Seybold - External Body height 2024-05-24 21:30:00 172.7 cm Meredith ey Seybold - External Body weight 2024-05-24 21:30:00 105.688 kg Meredith ey Seybold - External BMI 2024-05-24 21:30:00 35.43 kg/m2 Meredith ey Seybold - External Oxygen saturation in Arterial blood by Pulse oximetry 2024-05-24 21:30:00 94 /min Debbie Seybo ld - External Systolic blood pressure 2024-04-19 14:47:00 104 mm[Hg] Debbie Seybo ld - External Diastolic blood pressure 2024-04-19 14:47:00 70 mm[Hg] Debbie Seybo ld - External Heart rate 2024-04-19 14:47:00 67 /min Kelse y Seybold - External Body temperature 2024-04-19 14:47:00 36.06 Ileana Debbie Seybold - External Respiratory rate 2024-04-19 14:47:00 16 /min Debbie Seybold - External Body height 2024-04-19 14:47:00 172.7 cm Meredith ey Seybold - External Body weight 2024-04-19 14:47:00 104.781 kg Meredith ey Seybold - External BMI 2024-04-19 14:47:00 35.12 kg/m2 Meredith ey Seybold - External Systolic blood pressure 2024-03-15 15:43:00 94 mm[Hg] Debbie Seybo ld - External Diastolic blood pressure 2024-03-15 15:43:00 60 mm[Hg] Debbie Seybo ld - External Heart rate 2024-03-15 15:43:00 78 /min Kelse y Seybold - External Body temperature 2024-03-15 15:43:00 35.56 Ileana Debbie Seybold - External Respiratory rate 2024-03-15 15:43:00 14 /min Debbie Seybold - External Body height 2024-03-15 15:43:00 172.7 cm Meredith ey Seybold - External Body weight 2024-03-15 15:43:00 103.874 kg Meredith ey Seybold - External BMI 2024-03-15 15:43:00 34.82 kg/m2 Meredith ey Seybold - External Systolic blood pressure 2024-02-08 18:39:00 98 mm[Hg] Debbie Seybo ld - External Diastolic blood pressure 2024-02-08 18:39:00 68 mm[Hg] Debbie Seybo ld - External Heart rate 2024-02-08 18:39:00 88 /min Kelse y Seybold - External Body temperature 2024-02-08 18:39:00 36.11 Ileana Debbie Luna - External Respiratory rate 2024-02-08 18:39:00 16 /min Debbie Luna - External Body height 2024-02-08 18:39:00 172.7 cm Meredith Luna - External Body weight 2024-02-08 18:39:00 108.41 kg Meredith Palmaold - External BMI 2024-02-08 18:39:00 36.34 kg/m2 Meredith Palmaold - External Systolic blood pressure 2022-11-10 23:15:00 125 mm[Hg] [facility] Diastolic blood pressure 2022-11-10 23:15:00 83 mm[Hg] [facility] Heart rate 2022-11-10 23:15:00 80 /min [facility] Respiratory rate 2022-11-10 23:15:00 20 /min [facility] Oxygen saturation in Arterial blood by Pulse oximetry 2022-11-10 23:15:00 95 /min [facility] Body temperature 2022-11-10 20:35:00 37.11 Ileana [facility] Body weight 2022-11-10 20:35:00 117.482 kg [facility] BMI 2022-11-10 20:35:00 39.38 kg/m2 [facility] Systolic (mm Hg) 2022-07-01 15:36:00 [facility] Diastolic (mm Hg) 2022-07-01 15:36:00 [facility] Heart Rate 2022-07-01 15:36:00 [facility] Height 2022-07-01 15:36:00 5 [ft_i] [facility] Weight 2022-07-01 15:36:00 [facility] [place] BMI Calculated 2022-07-01 15:36:00 [facility] [place] Systolic (mm Hg) 2022-05-17 19:13:00 [facility] [place] Diastolic (mm Hg) 2022-05-17 19:13:00 [facility] Heart Rate 2022-05-17 19:13:00 [facility] Height 2022-05-17 19:13:00 5 [ft_i] Estefany Pereira Weight 2022-05-17 19:13:00 [facility] BMI Calculated 2022-05-17 19:13:00 M solomon Chavarriaann BP Systolic 2022-03-19 11:07:00 126 mm[Hg] BP Diastolic 2022-03-19 11:07:00 83 mm[Hg] Weight Measured 2022-03-19 11:07:00 252.20 pounds Height Measured 2022-03-19 11:07:00 64.72 inches Body Temperature 2022-03-19 11:07:00 Heart Rate 2022-03-19 11:07:00 81.00 /min Respiratory Rate 2022-03-19 11:07:00 BP Systolic 2021-12-08 11:24:00 133 mm[Hg] BP Diastolic 2021-12-08 11:24:00 85 mm[Hg] Weight Measured 2021-12-08 11:24:00 249.20 pounds Height Measured 2021-12-08 11:24:00 6.00 inches Body Temperature 2021-12-08 11:24:00 98.00 degrees Heart Rate 2021-12-08 11:24:00 98.00 /min Respiratory Rate 2021-12-08 11:24:00 17.00 /min BP Systolic 2021-08-05 09:21:00 133 mm[Hg] BP Diastolic 2021-08-05 09:21:00 83 mm[Hg] Weight Measured 2021-08-05 09:21:00 250.00 pounds Height Measured 2021-08-05 09:21:00 64.72 inches Body Temperature 2021-08-05 09:21:00 98.40 degrees Heart Rate 2021-08-05 09:21:00 83.00 /min Respiratory Rate 2021-08-05 09:21:00 18.00 /min BP Systolic 2021-08-04 11:08:00 133 mm[Hg] BP Diastolic 2021-08-04 11:08:00 90 mm[Hg] Weight Measured 2021-08-04 11:08:00 251.20 pounds Height Measured 2021-08-04 11:08:00 64.72 inches Body Temperature 2021-08-04 11:08:00 97.60 degrees Heart Rate 2021-08-04 11:08:00 89.00 /min Respiratory Rate 2021-08-04 11:08:00 BP Systolic 2021-02-10 09:26:00 141 mm[Hg] BP Diastolic 2021-02-10 09:26:00 93 mm[Hg] Weight Measured 2021-02-10 09:26:00 256.20 pounds Height Measured 2021-02-10 09:26:00 64.72 inches Body Temperature 2021-02-10 09:26:00 98.50 degrees Heart Rate 2021-02-10 09:26:00 76.00 /min Respiratory Rate 2021-02-10 09:26:00 16.00 /min BP Systolic 2020-10-29 09:43:00 128 mm[Hg] BP Diastolic 2020-10-29 09:43:00 87 mm[Hg] Weight Measured 2020-10-29 09:43:00 264.40 pounds Height Measured 2020-10-29 09:43:00 64.72 inches Body Temperature 2020-10-29 09:43:00 98.70 degrees Heart Rate 2020-10-29 09:43:00 70.00 /min Respiratory Rate 2020-10-29 09:43:00 BP Systolic 2020-07-30 10:36:00 139 mm[Hg] BP Diastolic 2020-07-30 10:36:00 91 mm[Hg] Weight Measured 2020-07-30 10:36:00 268.00 pounds Height Measured 2020-07-30 10:36:00 64.72 inches Body Temperature 2020-07-30 10:36:00 97.60 degrees Heart Rate 2020-07-30 10:36:00 81.00 /min Respiratory Rate 2020-07-30 10:36:00 BP Systolic 2020-04-23 08:07:00 149 mm[Hg] BP Diastolic 2020-04-23 08:07:00 100 mm[Hg] Weight Measured 2020-04-23 08:07:00 266.40 pounds Height Measured 2020-04-23 08:07:00 64.72 inches Body Temperature 2020-04-23 08:07:00 97.50 degrees Heart Rate 2020-04-23 08:07:00 81.00 /min Respiratory Rate 2020-04-23 08:07:00 16.00 /min BP Systolic 2020-01-22 11:18:00 127 mm[Hg] BP Diastolic 2020-01-22 11:18:00 92 mm[Hg] Weight Measured 2020-01-22 11:18:00 264.00 pounds Height Measured 2020-01-22 11:18:00 64.72 inches Body Temperature 2020-01-22 11:18:00 98.90 degrees Heart Rate 2020-01-22 11:18:00 76.00 /min Respiratory Rate 2020-01-22 11:18:00 16.00 /min BP Systolic 2019-12-21 13:35:00 BP Diastolic 2019-12-21 13:35:00 Weight Measured 2019-12-21 13:35:00 265.00 pounds Height Measured 2019-12-21 13:35:00 64.72 inches Body Temperature 2019-12-21 13:35:00 Heart Rate 2019-12-21 13:35:00 Respiratory Rate 2019-12-21 13:35:00 Procedures Procedure Date / Time Performed Performing Clinician Source URINALYSIS 2024-10-02 19:42:00 Harley Lujan [facility] URINE CULTURE 2024-10-02 19:42:00 Harley Lujan [facility] POCT GLUCOSE (AUTOMATED) 2024-09-15 14:20:00 Willard Cade [facility] POCT GLUCOSE (AUTOMATED) 2024-09-15 14:20:00 Willard Cade [facility] POCT GLUCOSE (AUTOMATED) 2024-09-14 19:10:00 Willard Cade [facility] POCT GLUCOSE (AUTOMATED) 2024-09-14 19:10:00 Willard Cade [facility] ROBOTIC SINGLE PORT SIMPLE PROSTATECTOMY 2024-09-14 12:46:00 Willard Toscano [facility] POCT GLUCOSE (AUTOMATED) 2024-09-14 12:07:00 Willard Cade [facility] POCT GLUCOSE (AUTOMATED) 2024-09-14 12:07:00 Willard Cade [facility] POCT GLUCOSE (AUTOMATED) 2024-09-14 02:44:00 Willard Cade [facility] POCT GLUCOSE (AUTOMATED) 2024-09-14 02:44:00 Willard Cade [facility] POCT GLUCOSE (AUTOMATED) 2024-09-13 23:56:00 Willard Cade [facility] POCT GLUCOSE (AUTOMATED) 2024-09-13 23:56:00 Willard Cade [facility] POCT GLUCOSE (AUTOMATED) 2024-09-13 18:09:00 Willard Cade [facility] POCT GLUCOSE (AUTOMATED) 2024-09-13 18:09:00 Willard Cade [facility] POCT GLUCOSE (AUTOMATED) 2024-09-13 15:00:00 Willard Cade [facility] POCT GLUCOSE (AUTOMATED) 2024-09-13 15:00:00 Willard Cadeolas [facility] PROSTATIC SPECIFIC ANTIGEN 2024-09-12 18:09:00 Viktor Stuart [facility] PROSTATIC SPECIFIC ANTIGEN 2024-09-12 18:09:00 Viktor Stuart [facility] ABORH CONFIRMATION (LAB ONLY) 2024-09-11 12:23:00 Willard Toscano [facility] ABORH CONFIRMATION (LAB ONLY) 2024-09-11 12:23:00 Willard Toscano [facility] CT ABDOMEN PELVIS W CONTRAST 2024-09-11 11:35:13 Errol Courtney [facility] CT ABDOMEN PELVIS W CONTRAST 2024-09-11 11:35:13 Errol Courtney [facility] BASIC METABOLIC PANEL (NA, K, CL, CO2, GLUCOSE, BUN, CREATININE, CA) 2024-09-11 10:25:00 Errol Courtney [facility] CBC WITHOUT DIFF 2024-09-11 10:25:00 Errol Courtney [facility] PROTHROMBIN TIME / INR 2024-09-11 10:25:00 Nipper, Col e [facility] ACTIVATED PARTIAL THRMPLAS ANUEL 2024-09-11 10:25:00 Nipper, Errol Clayton [facility] URINALYSIS 2024-09-11 10:25:00 Nipper, Errol Clayton U [facility] HB ABO GROUPING 2024-09-11 10:25:00 Nipper, Errol Mosquedau r [facility] URINE CULTURE 2024-09-11 10:25:00 Nipper, Errol [facility] BASIC METABOLIC PANEL (NA, K, CL, CO2, GLUCOSE, BUN, CREATININE, CA) 2024-09-11 10:25:00 Nipper, Errol [facility] CBC WITHOUT DIFF 2024-09-11 10:25:00 Nipper, Errol [facility] PROTHROMBIN TIME / INR 2024-09-11 10:25:00 Nipper, Col e [facility] ACTIVATED PARTIAL THRMPLAS ANUEL 2024-09-11 10:25:00 Nipper, Errol [facility] URINALYSIS 2024-09-11 10:25:00 Nipper, Errol Arnold U [facility] HB ABO GROUPING 2024-09-11 10:25:00 Nipper, Errol Mosquedau r [facility] URINE CULTURE 2024-09-11 10:25:00 Nipper, Errol [facility] US GALL BLADDER 2022-11-10 22:21:[address] [facility] CT ABDOMEN PELVIS WO CONTRAST 2022-11-10 21:43:00 Farooq Gipson [facility] LIPASE 2022-11-10 21:08:00 Farooq Gipson [facility] TROPONIN I 2022-11-10 21:08:00 Farooq Gipson [facility] HEPATIC FUNCTION PANEL (06966) (ALB,T.PRO,BILI T,BU/BC,ALT,AST,ALK PHOS) 2022-11-10 21:08:00 [facility] BASIC METABOLIC PANEL (NA, K, CL, CO2, GLUCOSE, BUN, CREATININE, CA) 2022-11-10 21:08:00 Faroqo Gipson [facility] CBC WITH DIFF 2022-11-10 21:08:00 [facility]IN[facility]YSIS 2022-11-10 21:08:00 [facility]REFUSAL FOR DIAGNOSIS AND TREATMENT 2022-11-10 20:29:05 Doctor Unassigned, Octavia [facility] NOTICE OF PRIVACY PRACTICES 2022-11-10 20:28:47 Doctor Unassigned, Octavia [facility] Ekg 2019-04-26 00:00:00 Plan of Care Planned Activity Planned Date Details Comments Source Goal Plan of Care Note [code = 99904-7] Goal Plan of Care Note [code = 30613-4] Goal Plan of Care Note [code = 41615-3] Goal Plan of Care Note [code = 92853-9] Goal Plan of Care Note [code = 68052-3] Goal Plan of Care Note [code = 01792-3] Goal Plan of Care Note [code = 70251-8] Goal Plan of Care Note [code = 96075-3] Goal Plan of Care Note [code = 51902-5] Goal Plan of Care Note [code = 86285-8] Goal Plan of Care Note [code = 25305-4] Goal Plan of Care Note [code = 02782-2] Goal Plan of Care Note [code = 32082-4] Goal Plan of Care Note [code = 92911-4] Goal Plan of Care Note [code = 76374-6] Goal Plan of Care Note [code = 06707-5] Goal Plan of Care Note [code = 58715-0] Goal Plan of Care Note [code = 90099-1] Goal Plan of Care Note [code = 36609-8] Goal Plan of Care Note [code = 08875-8] Goal Plan of Care Note [code = 46318-9] Goal Plan of Care Note [code = 38594-0] Goal Plan of Care Note [code = 70464-6] Goal Plan of Care Note [code = 44943-5] Goal Plan of Care Note [code = 02715-1] Goal Plan of Care Note [code = 26088-6] Encounters Start Date/Time End Date/Time Encounter Type Admission Type Attending Clinicians Care Facility Care Department Encounter ID Source 2024-12-31 13:00:00 2024-12-31 13:00:00 Outpatient CORNELIA QUIROZ [id number] Debbie Luna 2024-10-26 16:00:00 2024-10-26 16:00:00 Outpatient R WILLARD TOSCANO [facility] [id number] [facility] 2024-10-26 00:00:00 2024-10-26 14:21:43 Telephone Willard [facility]osc[facility] [place] 1.2.840.114 350.1.13.10 4.2.7.2.686 [id number] [facility] 2024-10-11 00:00:00 2024-10-11 16:58:40 Telephone Willard Toscano [facility] 1.2.840.114 350.1.13.10 4.2.7.2.686 [id number] [facility] 2024-10-11 00:00:00 2024-10-11 16:56:57 Telephone Willard Toscano [place] 1.2.840.114 350.1.13.10 4.2.7.2.686 [id number] [facility] 2024-10-02 10:30:00 2024-10-02 11:47:51 Outpatient R WILLARD TOSCANO [facility] [id number] [facility] 2024-10-02 10:30:00 2024-10-02 11:47:51 Office Visit Willard Toscano [facility] [place] 1.2.840.114 350.1.13.10 4.2.7.2.686 [id number] [facility] 2024-09-28 00:00:00 2024-09-28 00:00:00 Outpatient CORNELIA QUIROZ [id number] Debbie Luna 2024-09-20 00:00:00 2024-09-20 08:29:10 Telephone Willard Toscano [facility] [place] 1.2.840.114 350.1.13.10 4.2.7.2.686 [id number] [facility] 2024-09-18 13:00:00 2024-09-18 13:00:00 Outpatient R WILLARD TOSCANO [facility] [id number] [facility] 2024-09-17 00:00:00 2024-09-17 11:55:48 Transition of Care Edel Connell Kristi L [facility] 1.2.840.114 350.1.13.10 4.2.7.2.686 [id number] [facility] 2024-09-11 01:18:00 2024-09-15 11:13:00 Inpatient X WILLARD TOSCANO [facility] SUU [id number] [facility] 2024-09-11 01:18:00 2024-09-15 11:13:00 Hospital Encounter Willard Toscano [facility] 1.2.840.114 350.1.13.10 4.2.7.2.686 [id number] [facility] 2024-09-14 06:50:00 2024-09-14 12:20:00 Surgery Willard [facility]can[facility] 1.2.840.114 350.1.13.10 4.2.7.2.686 [id number] [facility] 2024-09-12 00:00:00 2024-09-12 00:00:00 Outpatient DEBBIE FLOOD [id number] Debbie Luna 2024-09-11 15:00:00 2024-09-11 15:00:00 Outpatient MAGDALENA WADDELL [id number] Debbie Luna 2024-09-11 00:00:00 2024-09-11 00:00:00 Outpatient RICHIE CORNELIA FLOOD [id number] Debbie Luna 2024-09-11 00:00:00 2024-09-11 00:00:00 Outpatient DEBBIE FLOOD [id number] Debbie Luna 2024-09-10 20:20:00 2024-09-10 21:51:00 Emergency X TRISTIN GILLIS WAKILI [facility] ERT [id number] [facility] 2024-09-10 20:20:00 2024-09-10 21:51:00 Emergency Ameprernasamantha Tristin Perea [facility] 1.2.840.114 350.1.13.10 4.2.7.2.686 [id number] [facility] 2024-08-20 00:00:00 2024-08-20 00:00:00 Outpatient RICHIE CORNELIA FLOOD [id number] Debbie [facility] 2024-07-06 00:00:00 2024-07-06 00:00:00 Outpatient DEBBIE FLOOD [id number] Debbie Jeremy 2024-07-03 10:10:00 2024-07-03 10:10:00 Outpatient DEBBIE FLOOD [id number] Debbie [facility] 2024-07-03 09:45:00 2024-07-03 09:45:00 Outpatient DEBBIE FLOOD [id number] Debbie [facility] 2024-07-03 00:00:00 2024-07-03 00:00:00 Outpatient DEBBIE FLOOD [id number] Debbie Jeremy 2024-07-02 15:00:00 2024-07-02 15:00:00 Outpatient CORNELIA QUIROZ [id number] Debbie eron 2024-06-19 00:00:00 2024-06-19 00:00:00 Outpatient [facility]EL[facility]IR[facility] [id number] [facility] 2024-05-28 00:00:00 2024-05-28 00:00:00 Outpatient HUNDL, CORNELIA FLOOD [id number] Debbie Seybold 2024-05-24 16:00:00 2024-05-24 16:00:00 Outpatient HUNDL, CORNELIA FLOOD [id number] Debbie Seybold 2024-04-19 10:00:00 2024-04-19 10:00:00 Outpatient HUNDL, CORNELIA FLOOD [id number] Debbie Seybold 2024-04-19 00:00:00 2024-04-19 00:00:00 Outpatient DEBBIE FLOOD [id number] Debbie Seybold 2024-04-11 00:00:00 2024-04-11 00:00:00 Outpatient GROUP, DEBBIE FLOOD [id number] Debbie Seybold 2024-03-22 00:00:00 2024-03-22 00:00:00 Outpatient HUNDL, CORNELIA FLOOD [id number] Debbie Seybold 2024-03-15 11:45:00 2024-03-15 11:45:00 Outpatient LAB90 DEBBIE FLOOD [id number] Debbie Seybold 2024-03-15 11:00:00 2024-03-15 11:00:00 Outpatient HUNDL, CORNELIA FLOOD [id number] Debbie Seybold 2024-03-12 13:00:00 2024-03-12 13:00:00 Outpatient HUNDL, CORNELIA FLOOD [id number] Debbie Seybold 2024-02-29 00:00:00 2024-02-29 00:00:00 Outpatient HUNDL, CORNELIA FLOOD [id number] Debbie Seybold 2024-02-24 15:40:00 2024-02-24 15:40:00 Outpatient VU, KIA FLOOD [id number] Debbie Seybold 2024-02-23 00:00:00 2024-02-23 00:00:00 Outpatient HUNDL, CORNELIA FLOOD [id number] Debbie Seybold 2024-02-17 11:20:00 2024-02-17 11:20:00 Outpatient LAB90 DEBBIE FLOOD [id number] Debbie Seybold 2024-02-14 00:00:00 2024-02-14 00:00:00 Outpatient CORNELIA QUIROZ [id number] Debbie Luna 2024-02-14 00:00:00 2024-02-14 00:00:00 Outpatient CORNELIA QUIROZ [id number] Debbie Luna 2024-02-13 08:10:00 2024-02-13 08:10:00 Outpatient LAB90 DEBBIE FLOOD [id number] Debbie Luna 2024-02-08 14:00:00 2024-02-08 14:00:00 Outpatient CORNELIA QUIROZ [id number] Debbie Luna 2024-01-23 16:00:00 2024-01-23 16:00:00 Outpatient PB REBOLLEDO [id number] Debbie Luna 2023-03-31 13:15:31 2023-03-31 13:15:31 Outpatient SFA SFA [id number] Paulo Almonte 2023-03-23 15:41:24 2023-03-23 15:41:24 Outpatient SFA SFA [id number] Paulo Almonte 2023-02-15 09:39:29 2023-02-15 09:39:29 Outpatient SFA SFA [id number] Paulo Almonte 2023-02-02 16:24:41 2023-02-02 16:24:41 Outpatient SFA SFA [id number] Paulo Almonte 2022-11-19 14:33:45 2022-11-19 14:33:45 Outpatient SFA SFA [id number] Paulo Almonte 2022-11-10 15:35:00 2022-11-10 18:20:00 Emergency LeonelaFarooq mcghee [facility] 1.2.840.114 350.1.13.10 4.2.7.2.686 [id number] [facility] 2022-11-10 15:35:00 2022-11-10 18:20:00 Emergency X FAROOQ GPISON [facility] ERT [id number] [facility] 2022-11-10 14:42:46 2022-11-10 14:42:46 Outpatient SFA [facility] [id number] Paulo Almonte 2022-09-29 14:30:00 2022-09-29 14:30:00 Ambulatory Pre-Reg [facility] [place] [id number] Shira Pereira 2022-08-31 10:50:59 2022-08-31 10:50:59 Outpatient SFA [facility] [id number] Paulo Almonte 2022-07-01 15:45:00 2022-07-02 05:59:59 Outpatient [facility] [place] [id number] Shira Pereira 2022-05-17 19:30:00 2022-05-18 04:59:59 Outpatient nullFlavo r [facility] [place] [id number] Shira Pereira 2022-03-19 00:00:00 2022-03-19 00:00:00 Outpatient Visit [id number] 2020-07-08 08:30:00 2020-07-08 08:30:00 Outpatient DAVID KNIGHT [facility] [id number] [facility] Results Test Description Test Time Test Comments Results Result Co mments Source [facility] GLUCOSE (AUTOMATED)2024-09-15 14:22:28* Test Item Value Reference Range Interpretation Comme nts POCT GLU (test code = 9465877954) 111 mg/dL 70-110 H Lab Interpretation (test cod e = 45085-7) Abnormal [facility] GLUCOSE (AUTOMATED)2024-09-14 19:11:32* Test Item Value Reference Range Interpretation Comme nts POCT GLU (test code = 5347164554) 184 mg/dL 70-110 H Lab Interpretation (test cod e = 51454-6) Abnormal [facility] GLUCOSE (AUTOMATED)2024-09-14 19:11:32* Test Item Value Reference Range Interpretation Comme nts POCT GLU (test code = [id number]) 184 mg/dL 70-110 H Lab Interpretation (test cod e = 83382-4) Abnormal [facility] GLUCOSE (AUTOMATED)2024-09-14 12:08:28* Test Item Value Reference Range Interpretation Comme nts POCT GLU (test code = [id number]) 112 mg/dL 70-110 H Lab Interpretation (test cod e = 66305-2) Abnormal [facility] GLUCOSE (AUTOMATED)2024-09-14 12:08:28* Test Item Value Reference Range Interpretation Comme nts POCT GLU (test code = 2209027193) 112 mg/dL 70-110 H Lab Interpretation (test cod e = 97053-2) Abnormal [facility] GLUCOSE (AUTOMATED)2024-09-14 02:45:59* Test Item Value Reference Range Interpretation Comme nts POCT GLU (test code = 1104891859) 122 mg/dL 70-110 H Lab Interpretation (test cod e = 12266-8) Abnormal [facility] GLUCOSE (AUTOMATED)2024-09-14 02:45:59* Test Item Value Reference Range Interpretation Comme nts POCT GLU (test code = 6322614365) 122 mg/dL 70-110 H Lab Interpretation (test cod e = 83147-0) Abnormal [facility] GLUCOSE (AUTOMATED)2024-09-13 23:56:58* Test Item Value Reference Range Interpretation Comme nts POCT GLU (test code = [id number]) 104 mg/dL 70-110 Lab Interpretation (test cod e = 17225-4) Normal [facility] GLUCOSE (AUTOMATED)2024-09-13 23:56:58* Test Item Value Reference Range Interpretation Comme nts POCT GLU (test code = 1798591330) 104 mg/dL 70-110 Lab Interpretation (test cod e = 93033-8) Normal [facility] GLUCOSE (AUTOMATED)2024-09-13 18:09:58* Test Item Value Reference Range Interpretation Comme nts POCT GLU (test code = [id number]) 76 mg/dL 70-110 Lab Interpretation (test cod e = 18404-6) Normal [facility] GLUCOSE (AUTOMATED)2024-09-13 18:09:58* Test Item Value Reference Range Interpretation Comme nts POCT GLU (test code = 4969213751) 76 mg/dL 70-110 Lab Interpretation (test cod e = 24765-7) Normal [facility] GLUCOSE (AUTOMATED)2024-09-13 15:01:28* Test Item Value Reference Range Interpretation Comme [facility] POCT GLU (test code = 6264256054) 111 mg/dL 70-110 H Lab Interpretation (test cod e = 58398-6) Abnormal [facility] GLUCOSE (AUTOMATED)2024-09-13 15:01:28* Test Item Value Reference Range Interpretation Comme [facility] POCT GLU (test code = 5165425737) 111 mg/dL 70-110 H Lab Interpretation (test cod e = 24782-4) Abnormal [facility] Abdomen pelvis w [id number] 22:40:42EXAM: CT ABDOMEN PELVIS W CONTRAST HISTORY: 63 years -old Male with Hematuria. CTAP performed at outsidehospital. Please re-interpret with attention to incidental finding of leftrenal lesion. COMPARISON: CTAP 11/10/2022 TECHNIQUE: Outside hospital images from [facility] dated 09/10/2024 at21:12PM were uploaded for interpretation. FINDINGS: LOWER THORAX: Scattered ill-defined nodular opacities, more prominent inthe right lung. No pleural effusion. LIVER: No focal hepatic lesions. Normal contour. GALLBLADDER AND BILIARY TREE: No intra or extrahepatic biliary ductaldilation. ?No radiopaque gallstones. SPLEEN: Enlarged measuring 18 cm in length. PANCREAS: No ductal dilatation or masses ADRENAL GL ANDS: No adrenal lesions. KIDNEYS: Mild bilateral hydroureteronephrosis. Homogeneous and symmetricalenhancement. Exophytic heterogeneously enhancing 2.2 cm lesion on the lowerpole of the left kidney.This was not clearly visualized on priorexamination in the absence of contrast but is likely increased in size. GI TRACT: No dilation or bowel wall thickening. Normal appendix. Sigmoiddiverticulosis.PERITONEUM AND RETROPERITONEUM: No free air or fluid collection. LYMPH NODES: Scattered mildly prominent mesenteric lymph nodes withoutabnormal enlargement, overall similar compared to prior. PELVIS/BLADDER: The bladder is moderately distended with no wallthickening. Significant prostatomegaly protruding into the bladder. Smallamount of layering nonenhancing hyperdensity in the bladder. VESSELS: Bilateral duplicated renal veins. The inferior renal vein on theleft is retroaortic. BONES AND SOFT TISSUES: No suspicious lytic or sclerotic bony lesions. Tinyfat-containing umbilical hernia. [facility] [id number] 22:40:42EXAM: CT ABDOMEN PELVIS W CONTRAST HISTORY: 63 years -old Male with Hematuria. CTAP performed at outsidehospital. Please re-interpret with attention to incidental finding of leftrenal lesion. COMPARISON: CTAP 11/10/2022 TECHNIQUE: Outside hospital images from [facility] dated 09/10/2024 at21:12PM were uploaded for interpretation. FINDINGS: LOWER THORAX: Scattered ill-defined nodular opacities, more prominent inthe right lung. No pleural effusion. LIVER: No focal hepatic lesions. Normal contour. GALLBLADDER AND BILIARY TREE: No intra or extrahepatic biliary ductaldilation. ?No radiopaque gallstones. SPLEEN: Enlarged measuring 18 cm in length. PANCREAS: No ductal dilatation or masses ADRENAL GL ANDS: No adrenal lesions. KIDNEYS: Mild bilateral hydroureteronephrosis. Homogeneous and symmetricalenhancement. Exophytic heterogeneously enhancing 2.2 cm lesion on the lowerpole of the left kidney.This was not clearly visualized on priorexamination in the absence of contrast but is likely increased in size. GI TRACT: No dilation or bowel wall thickening. Normal appendix. Sigmoiddiverticulosis.PERITONEUM AND RETROPERITONEUM: No free air or fluid collection. LYMPH NODES: Scattered mildly prominent mesenteric lymph nodes withoutabnormal enlargement, overall similar compared to prior. PELVIS/BLADDER: The bladder is moderately distended with no wallthickening. Significant prostatomegaly protruding into the bladder. Smallamount of layering nonenhancing hyperdensity in the bladder. VESSELS: Bilateral duplicated renal veins. The inferior renal vein on theleft is retroaortic. BONES AND SOFT TISSUES: No suspicious lytic or sclerotic bony lesions. Tinyfat-containing umbilical hernia. [facility] / [id number] 11:17:27* Test Item Value Reference Range Interpretation Comme nts PROTIME PATIENT (test code = 5964-2) 13.1 10.1-12.6 H INR (test code = 6301-6) 1.2 Normal INR <1.1; Warfarin Therapeutic range 2.0 to 3.0 or 2.5 to 3.5, depending upon the indications. Lab Interpretation (test code = 25011-8) [facility] 11:17:27* Test Item Value Reference Range Interpretation Comme nts APTT Patient (test code = 3173-2) Lab Interpretation (test cod e = 14674-4) Normal [facility] / [id number] 11:17:27* Test Item Value Reference Range Interpretation Comme [facility] PROTIME PATIENT (test code = 5964-2) 13.1 10.1-12.6 H INR (test code = 6301-6) 1.2 Normal INR <1.1; Warfarin Therapeutic range 2.0 to 3.0 or 2.5 to 3.5, depending upon the indications. Lab Interpretation (test code = 18030-4) [facility]normal [facility] 11:17:27* Test Item Value Reference Range Interpretation Comme [facility] APTT Patient (test code = 3173-2) Lab Interpretation (test cod e = 14957-7) Normal [facility] [id number] 10:54:02* Test Item Value Reference Range Interpretation Comme [facility] WBC (test code = 6690-2) 7.77 4.20-10.70 RBC (test code = 789-8) 4.57 4.26-5.52 HGB (test code = 718-7) 12.6 g/dL 12.2-16.4 HCT (test code = 4544-3) 36.3 % 38.4-49.3 L MCH (test code = 785-6) 27.6 pg 26.1-32.7 MCV (test code = 787-2) 79.4 fL 81.7-95.6 L MCHC (test code = 786-4) 34.7 g/dL 31.2-35.0 PLT (test code = 777-3) 115 150-328 L MPV (test code = 90101-6) 13.4 fL 9.8-13.0 H RDW-CV (test code = 788-0) 14.3 % 12.1-15.4 RDW-SD (test code = 67593-9) 41.6 fL 38.5-51.6 NRBC x10^3 (test code = 3856365648) See_Comment [Automated [employer]] The system which generated this result transmitted reference range: 10*3/?L. The reference range was not used to interpret this result as normal/abnormal. NRBC/100 WBC (test code = 7626576448) 0.0 0.0-10.0 IPF % (test code = 6353093926) 14.9 % 1.2-10.7 H Platelet count measured by fluorescence method. Lab Interpretation (test code = 32779-4) Abnormal [facility] without [id number] 10:54:02* Test Item Value Reference Range Interpretation Comme nts WBC (test code = 6690-2) 7.77 4.20-10.70 RBC (test code = 789-8) 4.57 4.26-5.52 HGB (test code = 718-7) 12.6 g/dL 12.2-16.4 HCT (test code = 4544-3) 36.3 % 38.4-49.3 L MCH (test code = 785-6) 27.6 pg 26.1-32.7 MCV (test code = 787-2) 79.4 fL 81.7-95.6 L MCHC (test code = 786-4) 34.7 g/dL 31.2-35.0 PLT (test code = 777-3) 115 150-328 L MPV (test code = 84327-7) 13.4 fL 9.8-13.0 H RDW-CV (test code = 788-0) 14.3 % 12.1-15.4 RDW-SD (test code = 46955-7) 41.6 fL 38.5-51.6 NRBC x10^3 (test code = 6579423357) See_Comment [Automated [employer]] The system which generated this result transmitted reference range: 10*3/?L. The reference range was not used to interpret this result as normal/abnormal. NRBC/100 WBC (test code = 6512675890) 0.0 0.0-10.0 IPF % (test code = 5056872727) 14.9 % 1.2-10.7 H Platelet count measured by fluorescence method. Lab Interpretation (test code = 93898-9) Abnormal [facility] Metabolic Panel (NA, K, CL, CO2, GLUCOSE, BUN, CREATININE, CA)2024-09-11 10:48:03* Test Item Value Reference Range Interpretation Comme nts NA (test code = 4800650406) 132 mmol/L 135-145 L K (test code = 5392287696) 3.9 mmol/L 3.5-5.0 CL (test code = 0056100018) 101 mmol/L 98-108 CO2 TOTAL (test code = 4879225804) 27 mmol/L 23-31 AGAP (test code = 5131701469) 4 2-16 BUN (test code = 7238251978) 25 mg/dL 7-23 H GLUCOSE (test code = 7678844391) 107 mg/dL 70-110 CREATININE (test code = 2160-0) 0.83 mg/dL 0.60-1.25 CALCIUM (test code = 2225709334) 8.6 mg/dL 8.6-10.6 eGFR (test code = 84440-6) 99.6 mL/min/1.73m2 CKD-EPI eGFR (2020). Assuming creatinine has been stable day-to-day for at least three months, the eGFR indicates Category G1 (>= 90 mL/min/1.73 m2) Lab Interpretation (test code = 03332-9) Abnormal [facility] Metabolic Panel (NA, K, CL, CO2, GLUCOSE, BUN, CREATININE, CA)2024-09-11 10:48:03* Test Item Value Reference Range Interpretation Comme nts NA (test code = 6890119868) 132 mmol/L 135-145 L K (test code = 3053413366) 3.9 mmol/L 3.5-5.0 CL (test code = 2992810089) 101 mmol/L 98-108 CO2 TOTAL (test code = 8140305099) 27 mmol/L 23-31 AGAP (test code = 6106154635) 4 2-16 BUN (test code = 7325966556) 25 mg/dL 7-23 H GLUCOSE (test code = 3506162783) 107 mg/dL 70-110 CREATININE (test code = 2160-0) 0.83 mg/dL 0.60-1.25 CALCIUM (test code = 0785090420) 8.6 mg/dL 8.6-10.6 eGFR (test code = 92900-1) 99.6 mL/min/1.73m2 CKD-EPI eGFR (2020). Assuming creatinine has been stable day-to-day for at least three months, the eGFR indicates Category G1 (>= 90 mL/min/1.73 m2) Lab Interpretation (test code = 47073-2) [facility]normal [facility] [id number] 10:40:00* Test Item Value Reference Range Interpretation Comme nts ABO & RH (test code = 20) O POSITIVE IAT (test code = 1185) Negative [facility] [id number] 10:40:00* Test Item Value Reference Range Interpretation Comme nts ABO & RH (test code = 20) O POSITIVE IAT (test code = 1185) Negative [facility] HospitalLIPID [id number] 04:34:14* Test Item Value Reference Range Interpretation Comme nts CHOLESTEROL (test code = 2210) 151 MG/DL <200 TRIGLYCERIDES (test code = 2232) 212 MG/DL <150 H HDL CHOLESTEROL (test code = 2220) 33 MG/DL >39 L CALC LDL CHOL (test code = 2237) 87 MG/DL <100 NOTE: CALCULATED LDL IS BASED ON JARED-DAVIDSON METHOD WHICHINCLUDES ADJUSTABLE TRIGLYCERIDE:VLDL CHOLESTEROL RATIO.THIS FACTOR VARIES BY MEASURED TRIGLYCERIDE AND NON-HDLCHOLESTEROL CONCENTRATIONS WITH INCREASED CALCULATED LDL SEENIN HIGHER TRIGLYCERIDE OR LOWER NON-HDL SPECIMENS. FOR MOREINFORMATION, SEE CLIENT ANNOUNCEMENT AT [email or web address] /CalcLDL-C RISK RATIO LDL/HDL (test code = 2238) 2.64 RATIO <3.55 UNLESS OTHERW ISE INDICATED, ALL TESTING PERFORMED AT [facility] [address] [place] [address] ZIGZAG MACHINE OPERATOR: MAURICIO BROWN M.D. CLIA NUMBER [id number] [place]. [id number] HEMOGLOBIN [id number] 02:43:01* Test Item Value Reference Range Interpretation Comme nts HEMOGLOBIN A1c (test code = 07107) 7.2 % 4.2-5.6 H [employer] GUIDELINES FOR HGB A1C: PREDIABETES/INCREASED RISK . . . . . . . 5.7-6.4% DIAGNOSIS OF DIABETES . . . . . . . . . >=6.5% WITH CONFIRMATION OR APPROPRIATE SYMPTOMS NOTE: ASSAY MAY BE AFFECTED BY HEMOGLOBINOPATHIES (SICKLE CELL ANEMIA, S-C DISEASE, OTHERS) OR ARTIFICIALLY LOWERED BY DECREASED RED CELL SURVIVAL (HEMOLYTIC ANEMIAS, BLOOD LOSS, ETC.). CONSIDER ALTERNATE TESTING OR LABORATORY CONSULTATION. HEMOGLOBIN [id number] 07:08:32* Test Item Value Reference Range Interpretation Comme [facility] HEMOGLOBIN A1c (test code = 35624) 10.1 % 4.2-5.6 H [employer] GUIDELINES FOR HGB A1C: PREDIABETES/INCREASED RISK . . . . . . . 5.7-6.4% DIAGNOSIS OF DIABETES . . . . . . . . . >=6.5% WITH CONFIRMATION OR APPROPRIATE SYMPTOMS NOTE: ASSAY MAY BE AFFECTED BY HEMOGLOBINOPATHIES (SICKLE CELL ANEMIA, S-C DISEASE, OTHERS) OR ARTIFICIALLY LOWERED BY DECREASED RED CELL SURVIVAL (HEMOLYTIC ANEMIAS, BLOOD LOSS, ETC.). CONSIDER ALTERNATE TESTING OR LABORATORY CONSULTATION. PSA, [id number] 06:17:48* Test Item Value Reference Range Interpretation Comme [facility] PSA, TOTAL (test code = 2606) 5.45 NG/ML See_Comment H NOTE: Methodolog y is Arlen Tatum Electrochemiluminescence Immunoassay traceable to WHO reference standard 96/760. [Automated message] The system which generated this result transmitted reference range: <=4.00. The reference range was not used to interpret this result as normal/abnormal. COMPREHENSIVE METABOLIC [id number] 05:55:49* Test Item Value Reference Range Interpretation Comme [facility] GLUCOSE (test code = 2217) 162 MG/DL 70-99 H BUN (test code = 2208) 24 MG/DL 6-20 H CREATININE (test code = 2214) 1.01 MG/DL 0.80-1.40 eGFR (2020 CKD-EPI) (test code = 26454) 86 ML/MIN/1.73 >60 CALC BUN/CREAT (test code = 2235) 24 RATIO 6-28 SODIUM (test code = 2231) 138 MEQ/L 133-146 POTASSIUM (test code = 222) 3.8 MEQ/L 3.5-5.4 CHLORIDE (test code = 2215) 99 MEQ/L 95-107 CARBON DIOXIDE (test code = 2205) 26 MEQ/L 19-31 CALCIUM (test code = 2208) 9.9 MG/DL 8.5-10.5 PROTEIN, TOTAL (test code = 2228) 8.3 G/DL 6.1-8.3 ALBUMIN (test code = 2200) 4.6 G/DL 3.5-5.2 CALC GLOBULIN (test code = 2240) 3.7 G/DL 1.9-3.7 CALC A/G RATIO (test code = 2233) 1.2 RATIO 1.0-2.6 BILIRUBIN, TOTAL (test code = 2206) 1.2 MG/DL See_Comment [Automated me ssage] The system which generated this result transmitted reference range: <=1.2. The reference range was not used to interpret this result as normal/abnormal. ALKALINE PHOSPHATASE (test code = 2203) 108 U/L 40-123 AST (test code = 2217) 93 U/L 9-50 H ALT (test code = 221) 119 U/L 5-50 H LIPID [id number] 05:55:49* Test Item Value Reference Range Interpretation Comme nts CHOLESTEROL (test code = 2210) 152 MG/DL <200 TRIGLYCERIDES (test code = 2232) 149 MG/DL <150 HDL CHOLESTEROL (test code = 2219) 35 MG/DL >39 L CALC LDL CHOL (test code = 2236) 92 MG/DL <100 NOTE: CALCULATED LDL IS BASED ON JARED-DAVIDSON METHOD WHICHINCLUDES ADJUSTABLE TRIGLYCERIDE:VLDL CHOLESTEROL RATIO.THIS FACTOR VARIES BY MEASURED TRIGLYCERIDE AND NON-HDLCHOLESTEROL CONCENTRATIONS WITH INCREASED CALCULATED LDL SEENIN HIGHER TRIGLYCERIDE OR LOWER NON-HDL SPECIMENS. FOR MOREINFORMATION, SEE CLIENT ANNOUNCEMENT AT [email or web address] /CalcLDL-C RISK RATIO LDL/HDL (test code = 223) 2.63 RATIO <3.55 UNLESS OTHERW ISE INDICATED, ALL TESTING PERFORMED [facility] [address] [place] [address], [place] [address] ZIGZAG MACHINE OPERATOR: EAGLE MONCADA M.D. CLIA NUMBER [id number] [facility] [place]. [id number] PSA, [id number] 00:00:00* Test Item Value Reference Range Interpretation Comme nts PSA, TOTAL (test code = 2606) 5.45 NG/ML LIPID [id number] 00:00:00* Test Item Value Reference Range Interpretation Comme nts CHOLESTEROL (test code = 2210) 152 MG/DL TRIGLYCERIDES (test code = 2232) 149 MG/DL HDL CHOLESTEROL (test code = 2220) 35 MG/DL CALC LDL CHOL (test code = 2237) 92 MG/DL RISK RATIO LDL/HDL (test cod e = 2238) 2.63 RATIO HEMOGLOBIN [id number] 00:00:00* Test Item Value Reference Range Interpretation Comme nts HEMOGLOBIN A1c (test code = 31972) 10.1 % COMPREHENSIVE METABOLIC [id number] 00:00:00* Test Item Value Reference Range Interpretation Comme nts GLUCOSE (test code = 2217) 162 MG/DL BUN (test code = 2208) 24 MG/DL CREATININE (test code = 2214) 1.01 MG/DL eGFR (2020 CKD-EPI) (test co de = 41626) 86 ML/MIN/1.73 CALC BUN/CREAT (test code = 2235) 24 RATIO SODIUM (test code = 2231) 138 MEQ/L POTASSIUM (test code = 2228) 3.8 MEQ/L CHLORIDE (test code = 2215) 99 MEQ/L CARBON DIOXIDE (test code = 2206) 26 MEQ/L CALCIUM (test code = 2209) 9.9 MG/DL PROTEIN, TOTAL (test code = 2229) 8.3 G/DL ALBUMIN (test code = 2201) 4.6 G/DL CALC GLOBULIN (test code = 2240) 3.7 G/DL CALC A/G RATIO (test code = 2234) 1.2 RATIO BILIRUBIN, TOTAL (test code = 2207) 1.2 MG/DL ALKALINE PHOSPHATASE (test code = 2204) 108 U/L AST (test code = 2218) 93 U/L ALT (test code = 2219) 119 U/L COMPREHENSIVE METABOLIC [id number] 04:52:22* Test Item Value Reference Range Interpretation Comme nts GLUCOSE (test code = 2217) 124 MG/DL 70-99 H BUN (test code = 2208) 21 MG/DL 6-20 H CREATININE (test code = 2213) 0.97 MG/DL 0.80-1.40 eGFR (2020 CKD-EPI) (test code = ) 90 ML/MIN/1.73 >60 CALC BUN/CREAT (test code = 2234) 22 RATIO 6-28 SODIUM (test code = 2230) 139 MEQ/L 133-146 POTASSIUM (test code = 2227) 4.0 MEQ/L 3.5-5.4 CHLORIDE (test code = 2214) 102 MEQ/L 95-107 CARBON DIOXIDE (test code = 2205) 25 MEQ/L 19-31 CALCIUM (test code = 2208) 9.3 MG/DL 8.5-10.5 PROTEIN, TOTAL (test code = 2228) 7.5 G/DL 6.1-8.3 ALBUMIN (test code = 2200) 3.9 G/DL 3.5-5.2 CALC GLOBULIN (test code = 2239) 3.6 G/DL 1.9-3.7 CALC A/G RATIO (test code = 2233) 1.1 RATIO 1.0-2.6 BILIRUBIN, TOTAL (test code = 2206) 0.9 MG/DL See_Comment [Automated me ssage] The system which generated this result transmitted reference range: <=1.2. The reference range was not used to interpret this result as normal/abnormal. ALKALINE PHOSPHATASE (test code = 2203) 107 U/L 40-123 AST (test code = 2217) 54 U/L 9-50 H ALT (test code = 2218) 60 U/L 5-50 H LIPID [id number] 04:52:22* Test Item Value Reference Range Interpretation Comme nts CHOLESTEROL (test code = 2209) 126 MG/DL <200 TRIGLYCERIDES (test code = 2232) 136 MG/DL <150 HDL CHOLESTEROL (test code = 2220) 26 MG/DL >39 L CALC LDL CHOL (test code = 7) 77 MG/DL <100 NOTE: CALCULATED LDL IS BASED ON JARED-DAVIDSON METHOD WHICHINCLUDES ADJUSTABLE TRIGLYCERIDE:VLDL CHOLESTEROL RATIO.THIS FACTOR VARIES BY MEASURED TRIGLYCERIDE AND NON-HDLCHOLESTEROL CONCENTRATIONS WITH INCREASED CALCULATED LDL SEENIN HIGHER TRIGLYCERIDE OR LOWER NON-HDL SPECIMENS. FOR MOREINFORMATION, SEE CLIENT ANNOUNCEMENT AT [email or web address] /CalcLDL-C RISK RATIO LDL/HDL (test code = 2238) 2.96 RATIO <3.55 HEMOGLOBIN [id number] 04:26:41* Test Item Value Reference Range Interpretation Comme [facility] HEMOGLOBIN A1c (test code = 93447) 8.8 % 4.2-5.6 H [employer] GUIDELINES FOR HGB A1C: PREDIABETES/INCREASED RISK . . . . . . . 5.7-6.4% DIAGNOSIS OF DIABETES . . . . . . . . . >=6.5% WITH CONFIRMATION OR APPROPRIATE SYMPTOMS NOTE: ASSAY MAY BE AFFECTED BY HEMOGLOBINOPATHIES (SICKLE CELL ANEMIA, S-C DISEASE, OTHERS) OR ARTIFICIALLY LOWERED BY DECREASED RED CELL SURVIVAL (HEMOLYTIC ANEMIAS, BLOOD LOSS, ETC.). CONSIDER ALTERNATE TESTING OR LABORATORY CONSULTATION. UNLESS OTHERWISE INDICATED, ALL TESTING PERFORMED [facility] [address] [place] [address] Z[employer] MACHINE OPERATOR: EAGLE MONCADA M.D. IA NUMBER [id number] [facility] [place]. [id number] HEMOGLOBIN [id number] 00:00:00* Test Item Value Reference Range Interpretation Comme [facility] HEMOGLOBIN A1c (test code = 46905) 8.8 % COMPREHENSIVE METABOLIC [id number] 00:00:00* Test Item Value Reference Range Interpretation Comme nts GLUCOSE (test code = 2217) 124 MG/DL BUN (test code = 2208) 21 MG/DL CREATININE (test code = 2214) 0.97 MG/DL eGFR (2020 CKD-EPI) (test co de = 94712) 90 ML/MIN/1.73 CALC BUN/CREAT (test code = 2235) 22 RATIO SODIUM (test code = 2231) 139 MEQ/L POTASSIUM (test code = 2228) 4.0 MEQ/L CHLORIDE (test code = 2215) 102 MEQ/L CARBON DIOXIDE (test code = 2206) 25 MEQ/L CALCIUM (test code = 2209) 9.3 MG/DL PROTEIN, TOTAL (test code = 2229) 7.5 G/DL ALBUMIN (test code = 2201) 3.9 G/DL CALC GLOBULIN (test code = 2240) 3.6 G/DL CALC A/G RATIO (test code = 2234) 1.1 RATIO BILIRUBIN, TOTAL (test code = 2207) 0.9 MG/DL ALKALINE PHOSPHATASE (test code = 2204) 107 U/L AST (test code = 2218) 54 U/L ALT (test code = 2219) 60 U/L LIPID [id number] 00:00:00* Test Item Value Reference Range Interpretation Comme nts CHOLESTEROL (test code = 2210) 126 MG/DL TRIGLYCERIDES (test code = 2232) 136 MG/DL HDL CHOLESTEROL (test code = 2220) 26 MG/DL CALC LDL CHOL (test code = 2237) 77 MG/DL RISK RATIO LDL/HDL (test cod e = 2238) 2.96 RATIO PSA, [id number] 00:00:00* Test Item Value Reference Range Interpretation Comme nts PSA, TOTAL (test code = 2606) 7.10 NG/ML LIPID [id number] 00:00:00* Test Item Value Reference Range Interpretation Comme nts CHOLESTEROL (test code = 2210) 157 MG/DL TRIGLYCERIDES (test code = 2232) 156 MG/DL HDL CHOLESTEROL (test code = 2220) 30 MG/DL CALC LDL CHOL (test code = 2237) 102 MG/DL RISK RATIO LDL/HDL (test cod e = 2238) 3.40 RATIO HEMOGLOBIN [id number] 00:00:00* Test Item Value Reference Range Interpretation Comme nts HEMOGLOBIN A1c (test code = 56460) 7.1 % COMPREHENSIVE METABOLIC [id number] 00:00:00* Test Item Value Reference Range Interpretation Comme nts GLUCOSE (test code = 2217) 103 MG/DL BUN (test code = 2208) 24 MG/DL CREATININE (test code = 2214) 0.95 MG/DL eGFR AMER. (test cod e = 43634) 103 ML/MIN/1.73 eGFR NON- AMER. (test code = 22339) 88 ML/MIN/1.73 CALC BUN/CREAT (test code = 2235) 25 RATIO SODIUM (test code = 2231) 140 MEQ/L POTASSIUM (test code = 2228) 4.0 MEQ/L CHLORIDE (test code = 2215) 103 MEQ/L CARBON DIOXIDE (test code = 2206) 27 MEQ/L CALCIUM (test code = 2209) 9.4 MG/DL PROTEIN, TOTAL (test code = 2229) 7.6 G/DL ALBUMIN (test code = 2201) 4.1 G/DL CALC GLOBULIN (test code = 2240) 3.5 G/DL CALC A/G RATIO (test code = 2234) 1.2 RATIO BILIRUBIN, TOTAL (test code = 2207) 0.6 MG/DL ALKALINE PHOSPHATASE (test code = 2204) 84 U/L AST (test code = 2218) 125 U/L ALT (test code = 2219) 137 U/L COMPREHENSIVE METABOLIC [id number] 00:00:00* Test Item Value Reference Range Interpretation Comme nts GLUCOSE (test code = 2217) 83 MG/DL BUN (test code = 2208) 24 MG/DL CREATININE (test code = 2214) 1.09 MG/DL eGFR AMER. (test cod e = 63276) 87 ML/MIN/1.73 eGFR NON- AMER. (test code = 34642) 75 ML/MIN/1.73 CALC BUN/CREAT (test code = 2235) 22 RATIO SODIUM (test code = 2231) 135 MEQ/L POTASSIUM (test code = 2228) 4.3 MEQ/L CHLORIDE (test code = 2215) 99 MEQ/L CARBON DIOXIDE (test code = 2206) 24 MEQ/L CALCIUM (test code = 2209) 9.3 MG/DL PROTEIN, TOTAL (test code = 2229) 7.6 G/DL ALBUMIN (test code = 2201) 4.6 G/DL CALC GLOBULIN (test code = 2240) 3.0 G/DL CALC A/G RATIO (test code = 2234) 1.5 RATIO BILIRUBIN, TOTAL (test code = 2207) 0.5 MG/DL ALKALINE PHOSPHATASE (test code = 2204) 98 U/L AST (test code = 2218) 87 U/L ALT (test code = 2219) 117 U/L HEMOGLOBIN [id number] 00:00:00* Test Item Value Reference Range Interpretation Comme nts HEMOGLOBIN A1c (test code = 52619) 6.3 % LIPID [id number] 00:00:00* Test Item Value Reference Range Interpretation Comme nts CHOLESTEROL (test code = 2210) 182 MG/DL TRIGLYCERIDES (test code = 2232) 145 MG/DL HDL CHOLESTEROL (test code = 2220) 37 MG/DL CALC LDL CHOL (test code = 223) 119 MG/DL RISK RATIO LDL/HDL (test cod e = 223) 3.22 RATIO PSA, [id number] 00:00:00* Test Item Value Reference Range Interpretation Comme nts PSA, TOTAL (test code = 2606) 4.98 NG/ML HEMOGLOBIN [id number] 00:00:00* Test Item Value Reference Range Interpretation Comme nts HEMOGLOBIN A1c (test code = 71708) 6.5 % COMPREHENSIVE METABOLIC [id number] 00:00:00* Test Item Value Reference Range Interpretation Comme nts GLUCOSE (test code = 2216) 107 MG/DL BUN (test code = 220) 23 MG/DL CREATININE (test code = 2214) 1.02 MG/DL eGFR AMER. (test cod e = 17892) 94 ML/MIN/1.73 eGFR NON- AMER. (test code = 19813) 81 ML/MIN/1.73 CALC BUN/CREAT (test code = 2235) 23 RATIO SODIUM (test code = 2231) 139 MEQ/L POTASSIUM (test code = 2228) 4.0 MEQ/L CHLORIDE (test code = 2215) 101 MEQ/L CARBON DIOXIDE (test code = 2206) 21 MEQ/L CALCIUM (test code = 2209) 9.2 MG/DL PROTEIN, TOTAL (test code = 2229) 7.3 G/DL ALBUMIN (test code = 2201) 4.2 G/DL CALC GLOBULIN (test code = 2240) 3.1 G/DL CALC A/G RATIO (test code = 2234) 1.4 RATIO BILIRUBIN, TOTAL (test code = 2207) 0.4 MG/DL ALKALINE PHOSPHATASE (test code = 2204) 116 U/L AST (test code = 2218) 63 U/L ALT (test code = 2219) 95 U/L LIPID [id number] 00:00:00* Test Item Value Reference Range Interpretation Comme nts CHOLESTEROL (test code = 2210) 160 MG/DL TRIGLYCERIDES (test code = 2232) 274 MG/DL HDL CHOLESTEROL (test code = 2220) 29 MG/DL CALC LDL CHOL (test code = 223) 92 MG/DL RISK RATIO LDL/HDL (test cod e = 2238) 3.17 RATIO COMPREHENSIVE METABOLIC [id number] 00:00:00* Test Item Value Reference Range Interpretation Comme nts GLUCOSE (test code = 2217) 106 MG/DL BUN (test code = 2208) 30 MG/DL CREATININE (test code = 2214) 1.01 MG/DL eGFR AMER. (test cod e = 19490) 96 ML/MIN/1.73 eGFR NON- AMER. (test code = 98680) 83 ML/MIN/1.73 CALC BUN/CREAT (test code = 2235) 30 RATIO SODIUM (test code = 2231) 143 MEQ/L POTASSIUM (test code = 2228) 4.1 MEQ/L CHLORIDE (test code = 2215) 103 MEQ/L CARBON DIOXIDE (test code = 2206) 27 MEQ/L CALCIUM (test code = 2209) 9.0 MG/DL PROTEIN, TOTAL (test code = 2229) 7.8 G/DL ALBUMIN (test code = 2201) 4.4 G/DL CALC GLOBULIN (test code = 2240) 3.4 G/DL CALC A/G RATIO (test code = 2234) 1.3 RATIO BILIRUBIN, TOTAL (test code = 2207) 0.6 MG/DL ALKALINE PHOSPHATASE (test code = 2204) 102 U/L AST (test code = 2218) 52 U/L ALT (test code = 2219) 67 U/L PSA, [id number] 00:00:00* Test Item Value Reference Range Interpretation Comme nts PSA, TOTAL (test code = 2606) 4.72 NG/ML COMPREHENSIVE METABOLIC [id number] 00:00:00* Test Item Value Reference Range Interpretation Comme nts GLUCOSE (test code = 2217) 124 MG/DL BUN (test code = 2208) 22 MG/DL CREATININE (test code = 2214) 1.07 MG/DL eGFR AMER. (test cod e = 64734) 89 ML/MIN/1.73 eGFR NON- AMER. (test code = 07930) 77 ML/MIN/1.73 CALC BUN/CREAT (test code = 2235) 21 RATIO SODIUM (test code = 2231) 138 MEQ/L POTASSIUM (test code = 2228) 4.0 MEQ/L CHLORIDE (test code = 2215) 101 MEQ/L CARBON DIOXIDE (test code = 2206) 24 MEQ/L CALCIUM (test code = 2209) 8.9 MG/DL PROTEIN, TOTAL (test code = 2229) 7.3 G/DL ALBUMIN (test code = 2201) 4.4 G/DL CALC GLOBULIN (test code = 2240) 2.9 G/DL CALC A/G RATIO (test code = 2234) 1.5 RATIO BILIRUBIN, TOTAL (test code = 2207) 1.1 MG/DL ALKALINE PHOSPHATASE (test code = 2204) 125 U/L AST (test code = 2218) 40 U/L ALT (test code = 2219) 60 U/L COMPREHENSIVE METABOLIC [id number] 00:00:00* Test Item Value Reference Range Interpretation Comme nts GLUCOSE (test code = 2217) 100 MG/DL BUN (test code = 2208) 26 MG/DL CREATININE (test code = 2214) 0.98 MG/DL eGFR AMER. (test cod e = 17546) 99 ML/MIN/1.73 eGFR NON- AMER. (test code = 93617) 86 ML/MIN/1.73 CALC BUN/CREAT (test code = 2235) 27 RATIO SODIUM (test code = 2231) 140 MEQ/L POTASSIUM (test code = 2228) 4.3 MEQ/L CHLORIDE (test code = 2215) 101 MEQ/L CARBON DIOXIDE (test code = 2206) 25 MEQ/L CALCIUM (test code = 2209) 9.5 MG/DL PROTEIN, TOTAL (test code = 2229) 7.7 G/DL ALBUMIN (test code = 2201) 4.5 G/DL CALC GLOBULIN (test code = 2240) 3.2 G/DL CALC A/G RATIO (test code = 2234) 1.4 RATIO BILIRUBIN, TOTAL (test code = 2207) 0.3 MG/DL ALKALINE PHOSPHATASE (test code = 2204) 102 U/L AST (test code = 2218) 37 U/L ALT (test code = 2219) 56 U/L LIPID [id number] 00:00:00* Test Item Value Reference Range Interpretation Comme nts CHOLESTEROL (test code = 2210) 165 MG/DL TRIGLYCERIDES (test code = 2232) 262 MG/DL HDL CHOLESTEROL (test code = 2220) 33 MG/DL CALC LDL CHOL (test code = 2237) 80 MG/DL RISK RATIO LDL/HDL (test cod e = 2238) 2.41 RATIO HEMOGLOBIN [id number] 00:00:00* Test Item Value Reference Range Interpretation Comme nts HEMOGLOBIN A1c (test code = 00718) 5.9 % History and Physical Notes Date/Time Note Provider Source 2024-09-11 02:57:42 Images from the original note were not included. UROLOGY HISTORY AND PHYSICAL NOTE Date of Service: 09/11/24 Faculty Attending: Dr. Toscano Chief Complaint: hematuria History of Present Illness: Freddy Nichols is a 63 year old male with hx of HTN, stroke 4 years ago on aspirin and plavix, and DM2 on trulicity with low A1c (5.5) who presents with hematuria onset this AM followed by gradual increasing difficulty with urination. Patient was evaluated at outside ER. He was afebrile and hemodynamically stable. Hb 14.1. Kidney function preserved with Cr 0.8. No significant electrolyte abnormalities. POC urinalysis was nitrate negative but leukocyte positive. CTAP showed BPH with median lobe and urinary retention as well as a heterogeneous enhancing exophytic left inferior renal pole mass measuring 2.2 cm. A iraheta was placed and it is unclear if patient had hematuria after decompression or at the time of placement. Patient was transferred to [facility] for higher level care. On arrival patient afebrile, hemodynamically stable. Catheter noted to have blood and clot. Exchanged for 22 Fr 3-way and CBI initiated. Admitted for observation. Medications (care everywhere): Physical Examination: Blood pressure (!) 148/89, pulse 83, temperature 36.9 ?C (98.5 ?F), temperature source Oral, resp. rate 18, weight 102.1 kg (225 lb), SpO2 98%. Constitutional: no acute distress Cardiovascular: regular rate Respiratory: respirations unlabored on room air Gastrointestinal: soft, non-distended, non tender Genitourinary: uncircumcised, normal phallus, bilateral descended testes Skin: no rashes Neurologic: alert and oriented x3 Radiology: CTAP 09/11/2023 OSH: BPH with retention: Small enhancing left inferior pole mass: Procedure: 18 Fr catheter from OSH removed in usual fashion. A 22-Fr 3-way iraheta catheter was placed in the usual sterile fashion with return of blood tinged urine. 30 cc sterile water placed into the bulb. Bladder was manually irrigated to remove ~ 50 cc clot. CBI initiated. Rocephin administered for ronit-procedural prophylaxis Assessment and Plan: 63 year old male with remote hx of stroke 4 years ago on aspirin and plavix who presents from OSH with hematuria and clot retention now s/p catheter placement and initiation of CBI. Also found to have incidental small exophytic left renal mass - continue CBI and iraheta catheter - pre-procedural clears - MMPC - f/u admission labs (CBC, BMP, PT / PTT, type and screen, UA / Ucx) - stool softener - hold blood thinners for now - upload CT from OSH (order placed) - home hydrochlorothiazide restarted, will consider restarting valsartan pending clinical improvement. - patient will need follow up for renal mass at time of discharge. Discussed case with faculty, Dr. Toscano. 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 Courtney's resident note as written . I actively participated in the decision-making process. Please see the resident's note for additional details. [facility] Procedure Notes Date/Time Note Provider Source 2024-09-14 10:59:10 Procedure(s): [place] LAPS SURG [id number] SMPL STOT ROBOTIC ASSISTANCE Full Operative Note 09/14/2024 Faculty Surgeon: Dony Toscano MD Resident Surgeon: Flex Arzola MD, Viktor Stuart MD, & Harley Lujan MD Preoperative Diagnosis: benign prostatic hyperplasia with urinary obstruction Postoperative Diagnosis: benign prostatic hyperplasia with urinary obstruction Procedure: 1. Single port robot assisted simple prostatectomy (07378), flexible cystoscopy (2060) Indications for surgery: Freddy Bruno Nichols is a 63 year old male with BPH resulting in significant LUTS with urinary retention. Findings: - large prostatic adenoma with intravesical median lobe excised - bilateral orthotopic ureteral orifices intact and effluxing at conclusion of the case - trabeculated bladder EBL: 500 milliliters Specimens: ID Type Source Tests Collected by Time Destination 1 : Prostate Tissue PROSTATE SURGICAL PATHOLOGY EXAM Willard Toscano MD 09/14/2024 1032 Drains: 18 [place] 3-way iraheta catheter with continuous bladder irrigation Complications: none Procedure: The patient was taken to the operating room and was given a general anesthetic as well as perioperative antibiotic prophylaxis. The patient was put in supine position with all bony prominences padded and bilateral intermittent pneumatic compression devices were placed and used throughout the case. The patient was prepped and draped in usual sterile fashion using Chloraprep. A time out was performed. He was put in slight trendelenburg. Flexible cystoscopy was performed with findings above. Bladder filled via cystoscope. 3 cm midline longitudinal incision made 3-4 fingerbreadth's above the pubic bone. This was carried down to the rectus fascia using blunt and sharp dissection. Fascia was opened longitudinally and muscle was split at midline exposing the anterior surface/ dome of the bladder. 0 Vicryl stay sutures were placed inferiorly and superiorly, the bladder was then opened using electrocautery. The cystoscope was removed and an 18 [place] tip cathter was placed. The access port was placed within the bladder, a 5mm trochar was placed through the inferior portion of the wound retractor, and the [employer] SP robot was docked. We then turned our attention to the prostate and bladder neck. Bilateral ureteral orifices were identified with clear efflux. A large intravesical prostate median lobe was present. An incision was made at the junction of the posterior bladder neck and prostate and extended circumferentially. The prostatic adenoma was then systematically dissected away from the bladder and prostatic capsule circumferentially and distally towards the apex. Once the prostatic apex was reached, the anterior urethra was sharply transected. The now exposed [place] catheter was used for suction. The posterior urethra was sharply transected. Any remaining attachments to the prostatic capsule were excised to release the prostate adenoma specimen. Lap tenaculum and suction insurance sales associate utilized via the 5mm port throughout. Meticulous hemostasis was achieved within the adenoma fossa. The bladder neck mucosa was advanced to the urethra using a two single armed 3-0 V-Loc barbed suture. Clear efflux remained present from bilateral ureteral orifices. A new 18 [place] 3-way Iraheta catheter was placed. Adenoma was removed from the bladder and deposited in the globe of the access port. The robot was then undocked and the acces port removed. The cystotomy was closed in a 2 layer fashion using 3-0 Vicryl for mucosal layer and 2-0 Vicryl for detrusor. Continuous bladder irrigation was initiated. The fascial incision was closed with 0 Vicryl in interrupted [id number] fashion. Skin was closed using 4-0 Monocryl subcuticular sutures. Dermabond was applied. All instrument and sponge counts were correct. The patient tolerated the procedure well and was transferred to the post-anesthesia care unit in stable condition. Flex Arzola MD Urology PGY5 TER SEAMER Associated attestation - Willard Toscano MD - 09/15/2024 11:27 AM QUARTER SEAMER I was present for and supervised the entire procedure. UROLOGY [facility] Notes Date/Time Note Provider Source 2024-10-26 14:19:03 Call connected by access center. Patient stated that he has noticed his urine is pinkish in color. The patient has concerns that he may have a UTI. The patient denies fever, chills, and difficulty urinating. The patient did stated that he is back at work and does a lot of walking and climbing. I informed patient that he may see a small amount of blood in his urine with activity if he is overexerting himself. I advised patient to drink plenty of water to help to clear the urine. Patient verbalized understanding. I informed patient that we can schedule a lab visit to test his urine to ensure no UTI. Order placed for urine cx. Jayde Houser RN [facility] 2024-10-26 14:07:27 Freddy Nichols is a 64 year old male Pt calling states he thinks he has a infection and would like to know if more antibiotics can be sent out please advise [phone] Maritza Pereira [facility] 2024-10-11 16:57:38 Spoke with patient about results Order has been called in to [facility] [place] - [address] AT [address] Ally Camilo MA [facility] 2024-10-02 10:30:00 Spoke with patient and verbalized understanding of results Telephone encounter created Ally Camilo MA 10/11/2024 3:32 PM Ally Camilo MA [facility] 2024-09-20 08:28:47 Patient contacted and scheduled for 10/02 TER SEAMER Karina Salter [facility] 2024-09-20 08:22:49 Freddy Nichols is a 63 year old male Patient calling in stating he needs a 2 week follow up appt with Dr. Toscano. Please advise TER SEAMER Juanita Caballero [facility] 2024-09-14 20:58:37 Problem: Falls, Risk of Goal: Absence of falls Outcome: Progressing as expected Problem: Bleeding, Risk of Goal: Absence of impaired coagulation signs and symptoms Outcome: Progressing as expected Goal: Absence of active bleeding Outcome: Progressing as expected Problem: Discharge Planning Goal: Adequate for discharge Outcome: Progressing as expected Goal: Effective communication Outcome: Progressing as expected Problem: Pain Goal: Control of pain at or below patient's documented comfort goal Outcome: Progressing as expected Goal: Reduction in pain sensation Outcome: Progressing as expected ITY Keith RN [facility] 2024-09-14 19:26:36 Pt c/o severe abdominal and groin pain at change of shift; pt stated he did not feel tylenol would be effective and unsure if he would perhaps receive order for norco. Spoke with Dr. Courtney who will place order for pain medication and would like him to have tylenol to start. Passed info onto night nurse, who said he will get his medications and include tylenol. Problem: Falls, Risk of Goal: Absence of falls Outcome: Progressing as expected Problem: Bleeding, Risk of Goal: Absence of impaired coagulation signs and symptoms Outcome: Progressing as expected Goal: Absence of active bleeding Outcome: Progressing as expected Problem: Discharge Planning Goal: Adequate for discharge Outcome: Progressing as expected Goal: Effective communication Outcome: Progressing as expected ITY Driscoll RN [facility] 2024-09-13 23:49:20 Problem: Falls, Risk of Goal: Absence of falls Outcome: Progressing as expected Problem: Discharge Planning Goal: Adequate for discharge Outcome: Progressing as expected Goal: Effective communication Outcome: Progressing as expected Problem: Pain Goal: Control of pain at or below patient's documented comfort goal Outcome: Progressing as expected Goal: Reduction in pain sensation Outcome: Progressing as expected Problem: Bleeding, Risk of Goal: Absence of impaired coagulation signs and symptoms Outcome: Progressing as expected Goal: Absence of active bleeding Outcome: Progressing as expected ITY Trujillo RN [facility] 2024-09-13 17:52:41 Problem: Falls, Risk of Goal: Absence of falls Outcome: Progressing as expected Problem: Bleeding, Risk of Goal: Absence of impaired coagulation signs and symptoms Outcome: Progressing as expected Goal: Absence of active bleeding Outcome: Progressing as expected Problem: Discharge Planning Goal: Adequate for discharge Outcome: Progressing as expected Goal: Effective communication Outcome: Progressing as expected Problem: Pain Goal: Control of pain at or below patient's documented comfort goal Outcome: Progressing as expected Goal: Reduction in pain sensation Outcome: Progressing as expected [facility] 2024-09-13 01:45:18 Problem: Falls, Risk of Goal: Absence of falls Outcome: Progressing as expected Problem: Bleeding, Risk of Goal: Absence of impaired coagulation signs and symptoms Outcome: Progressing as expected Goal: Absence of active bleeding Outcome: Progressing as expected Problem: Discharge Planning Goal: Adequate for discharge Outcome: Progressing as expected Goal: Effective communication Outcome: Progressing as expected Problem: Pain Goal: Control of pain at or below patient's documented comfort goal Outcome: Progressing as expected Goal: Reduction in pain sensation Outcome: Progressing as expected [facility] 2024-09-12 17:30:37 Problem: Falls, Risk of Goal: Absence of falls Outcome: Progressing as expected Problem: Bleeding, Risk of Goal: Absence of impaired coagulation signs and symptoms Outcome: Progressing as expected Goal: Absence of active bleeding Outcome: Progressing as expected Problem: Discharge Planning Goal: Adequate for discharge Outcome: Progressing as expected Goal: Effective communication Outcome: Progressing as expected Problem: Pain Goal: Control of pain at or below patient's documented comfort goal Outcome: Progressing as expected Goal: Reduction in pain sensation Outcome: Progressing as expected [facility] Magda Shepherd RN [facility] 2024-09-11 22:37:58 Problem: Falls, Risk of Goal: Absence of falls Outcome: Progressing as expected Problem: Discharge Planning Goal: Adequate for discharge Outcome: Progressing as expected Goal: Effective communication Outcome: Progressing as expected Problem: Pain Goal: Control of pain at or below patient's documented comfort goal Outcome: Progressing as expected Goal: Reduction in pain sensation Outcome: Progressing as expected Problem: Bleeding, Risk of Goal: Absence of impaired coagulation signs and symptoms Outcome: Progressing as expected Goal: Absence of active bleeding Outcome: Progressing as expected [facility] Prisca De La Paz RN [facility] 2024-09-11 16:23:35 Problem: Falls, Risk of Goal: Absence of falls Outcome: Progressing as expected Problem: Bleeding, Risk of Goal: Absence of impaired coagulation signs and symptoms Outcome: Progressing as expected Goal: Absence of active bleeding Outcome: Progressing as expected Problem: Discharge Planning Goal: Adequate for discharge Outcome: Progressing as expected Goal: Effective communication Outcome: Progressing as expected Problem: Pain Goal: Control of pain at or below patient's documented comfort goal Outcome: Progressing as expected Goal: Reduction in pain sensation Outcome: Progressing as expected [facility] 2024-09-11 07:05:27 Problem: Falls, Risk of Goal: Absence of falls Outcome: Progressing as expected Problem: Bleeding, Risk of Goal: Absence of impaired coagulation signs and symptoms Outcome: Progressing as expected Goal: Absence of active bleeding Outcome: Progressing as expected Problem: Discharge Planning Goal: Adequate for discharge Outcome: Progressing as expected Goal: Effective communication Outcome: Progressing as expected Problem: Pain Goal: Control of pain at or below patient's documented comfort goal Outcome: Progressing as expected Goal: Reduction in pain sensation Outcome: Progressing as expected [facility] 2024-09-11 05:29:41 Patient admitted to [facility] for diagnosis of hematuria. Patient agrees to admission, discussed plan of care with patient and family. Patient is awake, alert, oriented, resp reg unlabored, color appropriate for race, PIV intact. No adverse reaction to medications administered while in ED. Belongings with patient to unit. Report to floor nurse. ITY Agrawal RN [facility] 2024-09-11 04:48:46 Report to Reji BOWIE. Patient awaiting transport. ITY Mejia RN [facility] 2024-09-11 04:45:49 Report called to Codie BOWIE. Plan of care reviewed, all questions answered. Patient updated on plan of care. Transport requested via tele track. [facility] 2024-09-11 04:15:00 Urology placed 22fr triple lumen catheter and started CBI, patient tolerating well, NAD noted. [facility] 2024-09-11 03:49:46 Urology at bedside for bladder irrigation. Verbal order 2mg morphine PIV by Dr. Sarkar, given now [facility] 2024-09-11 03:20:48 Patient provided with x2 warm blankets for comfort [facility] 2024-09-11 03:06:04 Urology at bedside [facility] 2024-09-11 02:24:50 4L urinary drainage back requested from [facility] mg[facility] ITY Miranda RN [facility] 2024-09-11 02:14:21 Patient ambulates to and from with steady gait for BM. [facility] 2024-09-11 01:33:34 Urology MD aware of patient presence in ED. ITY Vilchis RN [facility] 2024-09-11 01:31:13 Freddy Nichols is a 63 year old male presenting to the ED with cc as a referral from [facility]. Patient presents with blood out of the urethra. Patient denies nausea and vomiting. Patient reports iraheta catheter placed in [facility]. Bright red blood present in iraheta catheter. Patient aaox4, vss, rr e/u, patient denies nausea, vomiting, dizziness. Patient speaking clearly. [facility] 2024-09-11 01:24:07 Urology returned page, aware of patient in the ED. [facility] 2024-09-11 01:17:29 Freddy Nichols is a 63 year old [facility] by urology from [facility] for hematuria. Pt arrives with iraheta in place. Urology paged ITY Buck RN [facility] 2024-09-10 21:40:57 Pt called for from [facility] with no answer ITY Hayes RN [facility] 2024-09-10 21:22:19 Patient called from [facility]. No answer. [facility] 2024-09-10 20:16:42 Patient arrived ambulatory to ED c/o peeing blood all day today at work. Pain to bilateral flank areas. States can't pee anymore. ITY Burnett RN [facility] 2024-07-02 14:42:26 Chief Complaint Patient presents with Blood Pressure Blood pressure follow up Shoulder Pain Right shoulder for about 2-3 months. Low range of motion. Does not radiate down arm. 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 No previous treatment or imaging. Hayde Agarwal MA II [facility] 2024-04-19 09:51:35 Chief Complaint Patient presents with Physical Patient is fasting. No other issues to discuss Hayde Agarwal MA II [facility] 2024-03-15 10:55:26 Chief Complaint Patient presents with Blood Pressure Follow up on blood pressure Hayde Agarwal MA II [facility] 2024-02-08 13:47:06 Chief Complaint Patient presents with Establish Care He has previously seen Margarette Hu NP in [place]. He is changing due to insurance. REFILLS-NURSE/MD Hayde Agarwal MA II [facility]
--- NOTE | 2024-11-04 22:30 | EDPHYS ---
Physician Documentation [facility] Name: Freddy Nichols Age: 64 yrs Sex: Male : 1960 Arrival Date: 11/04/2024 Time: 21:10 Bed IW2 Private MD: ED Physician Salvador Mcdaniels HPI: 11/04 21:14 This 64 yrs old Male presents to ER via Unassigned with complaints of Urinary sp4 Problem, Surgery on prostate early september. 22:28 Patient left from the waiting area.. sp4 Historical: - Allergies: 21:40 No Known Allergies; br2 - PMHx: 21:40 Hypertension; Hyperlipidemia; GERD; br2 - Immunization history:: Adult Immunizations not up to date. - Infectious Disease History:: Denies. - Social history:: Smoking status: Patient/guardian denies using tobacco, Patient/guardian denies using alcohol, street drugs. Vital Signs: 21:36 BP 152 / 102; Pulse 116; Resp 18; Temp 97.5; Pulse Ox 97% ; Weight 101.6 kg; Height 5 br2 ft. 8 in. ; Pain 9/10; 21:36 Body Mass Index 34.06 (101.60 kg, 172.72 cm) br2 21:36 Pain Scale: Adult br2 MDM: 22:30 Medical Screening Exam initiated sp4 Administered Medications: No medications were administered Disposition Summary: 11/04/24 22:30 Eloped Notes: Disposition: before being seen by provider sp4 Problem: new sp4 Symptoms: are unchanged sp4 Reason: (see nurse's notes) sp4 Condition: Undetermined sp4 Diagnosis - Acute urinary complaints sp4 Followup: sp4 - With: Private Physician - When: As needed - Reason: Signatures: Dispatcher [employer] EDSalvador Gutierres MD MD sp4 Mariluz Mendez RN RN br2 Corrections: (The following items were deleted from the chart) 21:50 21:50 Urinalysis W/Microscopic+U.LAB.BRZ ordered. EDMS EDMS
--- NOTE | 2024-11-04 22:30 | ER ---
Nurse's Notes [facility] Name: Freddy Nichols Age: 64 yrs Sex: Male : 1960 Arrival Date: 11/04/2024 Time: 21:10 Bed IW2 Private MD: Diagnosis: Acute urinary complaints Presentation: 11/04 21:36 Chief complaint: Patient states: LEFT TESTICULAR PAIN FOR 1 WEEK AFTER br2 ZIPLINNING....URINARY RETENTION. Coronavirus screen: Client denies travel out of the [place] in the last 14 days. Ebola Screen: Patient denies exposure to infectious person. Initial Sepsis Screen: Does the patient meet any 2 criteria? HR > 90 bpm. Does the patient have a suspected source of infection? No. Patient's initial sepsis screen is negative. Risk Assessment: Do you want to hurt yourself or someone else? Patient reports no desire to harm self or others. Onset of symptoms was October 28, 2024. 21:36 Method Of Arrival: Ambulatory br2 21:36 Acuity: CHASE 3 br2 Triage Assessment: 21:40 General: Appears uncomfortable, Behavior is calm, cooperative. Pain: Complains of pain br2 in groin Pain currently is 9 out of 10 on a pain scale. Historical: - Allergies: 21:40 No Known Allergies; br2 - PMHx: 21:40 Hypertension; Hyperlipidemia; GERD; br2 - Immunization history:: Adult Immunizations not up to date. - Infectious Disease History:: Denies. - Social history:: Smoking status: Patient/guardian denies using tobacco, Patient/guardian denies using alcohol, street drugs. Vital Signs: 21:36 BP 152 / 102; Pulse 116; Resp 18; Temp 97.5; Pulse Ox 97% ; Weight 101.6 kg; Height 5 br2 ft. 8 in. ; Pain 9/10; 21:36 Body Mass Index 34.06 (101.60 kg, 172.72 cm) br2 21:36 Pain Scale: Adult br2 ED Course: 21:11 Patient arrived in ED. im 21:14 Salvador Mcdaniels MD is Attending Physician. sp4 21:40 Triage completed. br2 Administered Medications: No medications were administered Outcome: 22:38 Patient left the ED. br2 Signatures: Salvador Mcdaniels MD MD sp4 Annie Danielle Belinda, RN RN br2
[2024-11-04 22:46] VITALS: BP 152/102; TEMP 97.5; O2SAT 97
== END 2024-11-04 22:38 | disposition left against medical advice (07) ==
LOC: ER 21:10
DX: Z53.21 Procedure and treatment not carried out due to patient leaving prior to being seen by health care provider (principal)
CPT/HCPCS: 99281